=== PATIENT | female | born 1930 | race Caucasian/White ===

== ENCOUNTER 2017-07-24 08:49 | Day surgery (SDC) | payer OTHER ==
--- NOTE | 2017-07-21 13:57 | RAD REPORT ---
EXAM DESCRIPTION: Cady Ovalle And Shari (2 Views)07/21/2017 1:41 pm CLINICAL HISTORY: Preop COMPARISON: April 2017 FINDINGS: The lungs appear clear of acute infiltrate. The heart is moderately enlarged. Postsurgica l changes involve the chest IMPRESSION: No acute abnormalities displayed
--- NOTE | 2017-07-21 14:05 | EKG ---
Test Date: 2017-07-21 Test Time: 13:12:27 Machine Maintenance Mechanic: GAEL MEASUREMENT RESULTS: Intervals: Rate: 68 MS: QRSD: 90 QT: 332 QTc: 353 [place]: P: MS: QRS: 49 T: 222 INTERPRETIVE STATEMENTS: Atrial fibrillation Anteroseptal infarct, age undetermined Abnormal ECG Compared to ECG 04/27/2017 07:30:03 No significant changes Electronically Signed On 07-21-17 14:04:15 CDT by Kenney Fuchs
[2017-07-24] MEDS ORDERED: Ringers Lactate 1,000 ML IV ONE (09:22)
[2017-07-24] MEDS ORDERED: CEFAZOLIN/SWI 1gm 1 GM/10 ML SYR ONE (09:23)
[2017-07-24] MEDS ORDERED: FENTANYL CITR 100 MCG/2 ML ONE (09:52)
[2017-07-24] MEDS ORDERED: PROPOFOL 200 MG/20 ML VIAL IV ONE (09:52)
[2017-07-24] MEDS ORDERED: LIDOCAINE 2% MPF 5 ML VIAL ONE (09:52)
[2017-07-24 09:57] LABS: Protime INR 1.06
[2017-07-24] MEDS ORDERED: LIDOCAINE 1% 20 ML MDV ONE (10:11)
--- NOTE | 2017-07-24 11:45 | OP ---
Date of Procedure: 07/24/2017 Surgeon: Will Miranda MD Preoperative Diagnoses: Headache, vision change, rule out temporal arteritis on left side. Postoperative Diagnoses: Headache, vision change, rule out temporal arteritis on left side. Procedure: Left temporal artery biopsy and utilization of the Doppler device to locate the temporal artery. Estimated Blood Loss: Minimal. Specimen: Left temporal artery. Findings: As above. Anesthesia: MAC. Complications: None. Disposition: The patient tolerated the procedure in stable condition and taken to Recovery in good g eneral condition. Operative Note: The patient was brought to the OR and placed in supine position. MAC anesthesia was begun. The patient was prepped and draped in the sterile fashion. Then, a Doppler device was used to localize the branch of the temporal artery. Anterior and superior to the left ear marked and then Marcaine 0.5% was infiltrated locally. A 15-blade was used to make a 4-cm incision. Subcutaneous t issue was divided and deep to that, a convoluted temporal artery branch identified. Proximal and dis nabor control obtained with sharp and blunt dissection, and then approximately a 4-cm segment removed a nd sent to Pathology and then the ends tied with 4-0 silk. Wound irrigated. Bleeding controlled wit h cautery. A 4-0 chromic was used to approximate the subcutaneous tissue and close the skin. Steril e dressing was applied. The patient was awakened and taken to Recovery in good general condition. Discharge Note: The patient will go to Day Surgery and home when stable. Disposition: Home. Condition: Stable. Discharge Instructions: Resume home medications and diet. Activity as tolerated. No heavy lifting. Remove outer dressing in 2 days. Shower. Keep wound clean and dry. Keep Steri-Strips on her all times. Follow up in my office in 2 weeks. Call for appointment. Follow up with Dr. Mckeon. Evan noалександр No. 3 one tablet p.o. q.4 p.r.n. pain. /MODL Voice ID: [id number] Report ID: [id number]
[2017-07-24 12:04] VITALS: O2SAT 98
[2017-07-24 12:39] VITALS: BP 119/54; TEMP 97.1
== END 2017-07-24 12:38 | disposition home or self-care (01) ==
LOC: OR 08:49
PROVIDERS: ATTEND Surgery
PROC: 03BT0ZX Excision of Left Temporal Artery, Open Approach, Diagnostic (ICD-10-PCS; principal; 2017-07-24 10:00)
DX: R51 Headache (principal); H53.9 Unspecified visual disturbance; I25.10 Atherosclerotic heart disease of native coronary artery without angina pectoris; Z88.6 Allergy status to analgesic agent; Z88.8 Allergy status to other drugs, medicaments and biological substances; Z95.1 Presence of aortocoronary bypass graft; Z86.73 Personal history of transient ischemic attack (TIA), and cerebral infarction without residual deficits
CPT/HCPCS: 36415 ×2; 37609; 71046; 80048; 85610; 88305; 93005; J0690; J3010

== ENCOUNTER 2017-09-02 05:50 | Emergency (ER) | payer OTHER ==
--- OUTSIDE RECORDS SUMMARY | 2017-09-02 06:00 | XMS REPORT | Continuity of Care Document ---
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/18 Problem 02/07/2013 [facility] artery 93 Medical bypass grafts x Center 4 Acute GI Active Problem 07/13/2011 [facility] bleeding AF - Atrial Active Problem 07/13/2011 [facility] fibrillation CAD - Coronary Active Problem 07/13/2011 [facility] artery disease Chest pain Active Problem 07/13/2011 [facility] CHF - Active Problem 07/13/2011 [facility] Congestive heart failure HTN - Active Problem 07/13/2011 [facility] Hypertension Acute GI Active Problem 02/07/2013 [facility] Center AF - Atrial Active Problem 02/07/2013 [facility] Angina Resolved Problem 02/07/2013 [facility] Bronchitis Resolved Problem 02/07/2013 [facility] CAD Resolved Problem 02/07/2013 [facility] CAD - Coronary Active Problem 02/07/2013 [facility] Chest pain Active Problem 02/07/2013 [facility] CHF - Active Problem 02/07/2013 [facility] heart failure Center CVA Resolved Problem 02/07/2013 [facility] Diabetes Resolved Problem 02/07/2013 [facility] HTN - Active Problem 02/07/2013 [facility] Hypertension Resolved Problem 02/07/2013 [facility] CVA Active [facility] GASTROINTEST Active [facility] HEMORR NOS Medications Medication Details Route Status Patient Ordering Order Source Instructions Provider Date warfarin 2.5 mg, 1 tab, Inactive Yoshii[facility] Route: PO, Drug ntreras 2012 Medical form: TAB, ONCE, Center Dosing Weight 65.005, kg, Start date: 02/05/13 14:00:00, Stop date: 02/05/13 14:00:00Nurse to ensure documentation of patient education per anticoagulation policy. Avoid large intake of vitamin-K containing foods diet. (Same As: Coumadin) lisinopril 2.5 mg, 1 tab, Inactive [place] 02/05[facility] Route: PO, Drug 2012 Medical form: TAB, Daily, Center Dosing Weight 65.005, kg, Start date: 02/05/13 12:00:00, Duration: 30 day, Stop date: 03/07/13 9:00:00(Same as: Prinivil) lisinopril 2.5 2.5 mg=1 tab, PO, Active [facility] 02/05[facility] mg oral tablet Daily, # 30 tab, 2013 Medical 0 Refill(s), Center other warfarin 2 mg 2 mg=1 tab, PO, Active [place] 02/05[facility] oral tablet Daily, # 30 tab, 2013 Medical 0 Refill(s), Center other docusate sodium 100 mg=10 mL, PO, Active [place] 02/05[facility] 150 mg/15 mL Q12H, # 30 mL, 0 2012 Medical oral liquid Refill(s), other Center DuoNeb 3 mL, INHALATION, Active [facility] 02/05[facility] inhalation RTID, # 90 mL, 0 2012 Medical solution Refill(s), other Center atorvastatin 80 80 mg=1 tab, PO, Active [place] 02/05[facility] mg oral tablet QPM, # 30 tab, 0 2012 Medical Refill(s), other Center acetaminophen 650 mg=2 tab, PO, Active [place] 02/05[facility] 325 mg oral Q4H, Pain, # 30 2013 Medical tablet tab, 0 Refill(s), Center other AMIODarone 200 200 mg=1 tab, PO, Active [place] 02/05[facility] mg oral tablet Daily, # 30 tab, 2013 Medical 0 Refill(s), Center other warfarin 2.5 mg, 1 tab, Inactive [facility] 02/04[facility] Route: PO, Drug ntreras 2012 Medical form: TAB, Q5PM, Center Dosing Weight 65.005, kg, Start date: 02/04/13 17:00:00, Duration: 1 doses or times, Stop date: 02/04/13 17:00:00Nurse to ensure documentation of patient education per anticoagulation policy. Avoid large intake of vitamin-K containing foods diet. (Same As: Coumadin) Lasix 20 mg, 1 tab, Inactive [place] 02/03[facility] Route: PO, Drug 2012 Medical form: TAB, ONCE, Center Dosing Weight 65.005, kg, Priority: NOW, Start date: 02/02/13 18:50:00, Stop date: 02/02/13 18:50:00(Same as: Lasix) May cause GI upset. Give with food or milk. [place] 5/325 1 tab, Route: PO, No Longer [place] 02/02[facility] oral tablet Drug Form: TAB, Active 2012 Medical Dosing Weight Center 65.005, kg, Q6H, PRN Pain, Start date: 02/02/13 16:17:00, Duration: 30 day, Stop date: 03/04/13 16:16:00(Same as: [place] 325/5) Do not exceed 4gm/day of acetaminophen. Tylenol 650 mg, 2 tab, No Longer [place] 02/02[facility] Route: PO, Drug Active 2012 Medical form: TAB, Q4H, Center Dosing Weight 65.005, kg, PRN Pain, Start date: 02/02/13 16:17:00, Duration: 30 day, Stop date: 03/04/13 16:16:00Do not exceed 4 gm/day. (Same as: Tylenol) DuoNeb 3 mL, Route: No Longer [place] 02/02[facility] inhalation INHALATION, Drug Active 2012 Medical solution Form: SOLN, Center Dosing Weight 65.005, kg, RTID, Start date: 02/02/13 14:00:00, Duration: 30 day, Stop date: 03/04/13 8:00:00(Same as: Duoneb) DuoNeb 3 ml, Route: No Longer [place] [address] inhalation INHALATION, Drug Active 2012 Medical solution Form: SOLN, Center Dosing Weight 65.005, kg, PRN, PRN Respiratory Protocol, Start date: 02/02/13 9:04:00, Duration: 30 day, Stop date: 03/04/13 9:03:00(Same as: Duoneb) Heparin 40 Pharmacy To Inactive [place] [address] unit/kg Bolus Manage, Route: 2012 Medical (Heparin Dosing IVP, PRN, Drug Center Weight) form: INJ, PRN, Heparin Protocol, Start date: 02/02/13 7:46:00 Stop date: 03/04/13 7:45:00, 30 day heparin 500 mL, Rate: Inactive [facility] additive 25,000 14.3 ml/hr, ntreras 2012 Medical unit [11 Infuse over: 35 Center unit/kg/hr] + hr, Route: IV, Premix Diluent Dosing Weight 65 Dextrose 5% 500 kg, Total Volume: mL 500 mL, Start date: 02/02/13 7:46:00, Duration: 30 day, Stop date: 03/04/13 7:45:00 Heparin 80 Pharmacy To Inactive Luz Marina Delia unit/kg Bolus Manage, Route: 2012 Medical (Heparin Dosing IVP, PRN, Drug Center Weight) form: INJ, PRN, Heparin Protocol, Start date: 02/02/13 7:46:00 Stop date: 03/04/13 7:45:00, 30 day warfarin 5 mg, 1 tab, Inactive Flixpress[facility] Route: PO, Drug ntreras 2012 Medical form: TAB, Q5PM, Center Dosing Weight 65.005, kg, Start date: 02/01/13 17:00:00, Duration: 1 doses or times, Stop date: 02/01/13 17:00:00Nurse to ensure documentation of patient education per anticoagulation policy. Avoid large intake of vitamin-K containing foods diet. (Same As: Coumadin) warfarin 5 mg, 1 tab, Inactive [facility] Route: PO, Drug ntrcedar glens 2012 Medical form: TAB, Q5PM, Center Dosing Weight 65.005, kg, Start date: 01/31/13 17:00:00, Duration: 1 doses or times, Stop date: 01/31/13 17:00:00Nurse to ensure documentation of patient education per anticoagulation policy. Avoid large intake of vitamin-K containing foods diet. (Same As: Coumadin) warfarin 5 mg, 1 tab, Inactive [facility] 01/30[facility] Route: PO, Drug ntreras 2012 Medical form: TAB, Q5PM, Center Dosing Weight 65.005, kg, Start date: 01/30/13 17:00:00, Duration: 1 doses or times, Stop date: 01/30/13 17:00:00Nurse to ensure documentation of patient education per anticoagulation policy. Avoid large intake of vitamin-K containing foods diet. (Same As: Coumadin) Aspirin Low 81 mg=1 tab, PO, No Longer [facility] Dose 81 mg oral Daily, 0 Active 2012 Medical tablet Refill(s) Center lisinopril 5 mg, Route: PO, Inactive [facility] Drug form: TAB, 2012 Medical Daily, Dosing Center Weight 65.005, kg, Start date: 01/29/13 9:00:00, Duration: 30 day, Stop date: 02/27/13 9:00:00 gabapentin 300 300 mg, 1 cap, No Longer Pérez [facility] mg oral capsule Route: PO, Drug Active 2012 Medical form: CAP, TID, Center Dosing Weight 65.005, kg, Start date: 01/29/13 9:00:00, Duration: 30 day, Stop date: 02/27/13 17:00:00(Same as: Neurontin) heparin 500 mL, Rate: No Longer Luz Marina [place] additive 25,000 16.69 ml/hr, Active 2012 Medical unit [14 Infuse over: 30 Center unit/kg/hr] + hr, Route: IV, Premix Diluent Dosing Weight Dextrose 5% 500 59.62 kg, Total mL Volume: 500 mL, Start date: 01/28/13 15:25:00, Duration: 30 day, Stop date: 02/27/13 15:24:00 lisinopril 5 mg 5 mg=1 tab, PO, No Longer [facility] oral tablet Daily, # 30 tab, Active 2012 Medical 0 Refill(s) Center gabapentin 300 300 mg=1 cap, PO, Active [facility] mg oral capsule TID, # 90 cap, 0 2012 Medical Refill(s) Center simvastatin 20 20 mg=1 tab, PO, No Longer [facility] mg oral tablet Bedtime, # 30 Active 2012 Medical tab, 0 Refill(s) Center AMIODarone 200 0 Refill(s) No Longer [facility] mg oral tablet Active 2012 Medical Center AMIODarone 200 mg, 1 tab, No Longer Burgos-Mariusz [facility] Route: PO, Drug Active bella 2012 Medical form: TAB, Daily, Center Dosing Weight 65.005, kg, Start date: 01/28/13 9:00:00, Duration: 30 day, Stop date: 02/26/13 9:00:00(Same as: Cordarone) magnesium 2 gm, 50 mL, Inactive [facility] 01/28[facility] sulfate Route: IVPB, Drug 2012 Medical form: INJ, ONCE, Center Start date: 01/28/13 7:00:00, Stop date: 01/28/13 7:00:00 potassium 40 mEq, 30 mL, Inactive [facility] chloride Route: NJ, Drug 2012 Medical form: LIQ, ONCE, Center Start date: 01/28/13 7:00:00, Stop date: 01/28/13 7:00:00(Same as: Potassium Chloride) NS (Bolus) IV 500 mL, Rate: 500 Inactive [place] 01/28[facility] 500 mL ml/hr, Infuse 2012 Medical over: 1 hr, Center Route: IV, Dosing Weight 65.005 kg, Total Volume: 500, Priority: STAT, Start date: 01/28/13 5:08:00, Duration: 1 doses or times, Stop date: 01/28/13 6:07:00, Bolus DoseBolus Dose insulin regular 7 unit, 0.07 mL, No Longer Willie 01/28[facility] 100 units/mL Route: SUB-Q, Active 2012 Medical human Drug form: SOLN, Center recombinant PRN, Dosing Weight 65.005, kg, PRN Abnormal Lab Result, Start date: 01/28/13 5:06:00, Duration: 30 day, Stop date: 02/27/13 5:05:00(Same as: Humulin R) Roll in palms of hands gently; Do not shake vigorously. "single patient use only" (Restricted to patients requiring a dose > 60 units) Stable for 28 days at room temperature Expires in days from Dat e Dextrose 50% 25 gm, 50 mL, No Longer [facility] 01/28[facility] Syringe Route: IVP, Drug Active 2012 Medical Form: INJ, Dosing Center Weight 65.005, kg, PRN, PRN Abnormal Lab Result, Start date: 01/28/13 5:06:00, Duration: 30 day, Stop date: 02/27/13 5:05:00 albumin human 25 gm, 500 mL, Inactive Willie [facility] 5% intravenous 500 ml/hr, Route: 2012 Medical solution IV, Drug Form: Center INJ, Dosing Weight 65.005, kg, ONCE, Start date: 01/28/13 3:44:00, Stop date: 01/28/13 3:44:00LOT#: Mfg: ___ (Same as: Albuminar) "blood product derivative" NS (Bolus) IV 500 mL, Rate: 500 Inactive Willie [facility] 500 mL ml/hr, Infuse 2012 Medical over: 1 hr, Center Route: IV, Dosing Weight 65.005 kg, Total Volume: 500, Priority: STAT, Start date: 01/28/13 0:45:00, Duration: 1 doses or times, Stop date: 01/28/13 1:44:00, Bolus DoseBolus Dose ibuprofen 600 mg, 1 tab, No Longer Burgos-Mariusz [facility] Route: PO, Drug Active bella 2012 Medical form: TAB, Q6H, Center Dosing Weight 65.005, kg, PRN Pain, Start date: 01/27/13 11:03:00, Duration: 30 day, Stop date: 02/26/13 11:02:00(Same as: Motrin) "Do Not Crush" Take with food. docusate 100 mg, 10 mL, No Longer Grotta [facility] Route: PO, Drug Active 2012 Medical form: LIQ, Q12H, Center Start date: 01/26/13 21:30:00, Duration: 30 day, Stop date: 02/25/13 21:00:00(Same as: Colace) Saline Flush 5 ml, Route: No Longer Baker [facility] 0.9% MISC, Drug Form: Active 2012 Medical INJ, Dosing Center Weight 66, kg, Q12H, Start date: 01/26/13 21:00:00, Duration: 30 day, Stop date: 02/25/13 9:00:00(Same as: BD Posiflush) docusate 100 mg, 1 cap, Inactive Burgos[facility]Mariusz [facility] Route: PO, Drug bella 2012 Medical form: CAP, Q12H, Center Dosing Weight 65.005, kg, Start date: 01/26/13 21:00:00, Duration: 30 day, Stop date: 02/25/13 9:00:00(Same as: Colace) (Do Not Crush) Omnipaque 85 mL, Route: Inactive Samuel [facility] 350mg/ml IVP, Drug Form: 2012 Medical SOLN, Dosing Center Weight 65.005, kg, ONCALL, STAT, Start date: 01/26/13 19:56:00, Duration: 1 doses or times, Dose=2.2ml/kg, Max [id number]=[id number] -- "To be infused by Radiology Staff ONLY"Dose=2.2ml/k g, Max syte=162eu -- "To be infused by Radiology Staff ONLY" Versed 2 mg, 2 mL, Inactive Willie [facility] Route: IVP, Drug 2012 Medical form: INJ, ONCE, Center Dosing Weight 65.005, kg, Start date: 01/26/13 19:17:00, Stop date: 01/26/13 19:17:00, aggitation in MRi(Same as: Versed) Omnipaque 85 mL, Route: Inactive Pérez [place] 350mg/ml IVP, Drug Form: 2012 Medical SOLN, Dosing Center Weight 65.005, kg, ONCALL, STAT, Start date: 01/26/13 17:39:00, Duration: 1 doses or times, Dose=2.2ml/kg, Max [id number]=[id number] -- "To be infused by Radiology Staff ONLY"Dose=2.2ml/k g, Max jfvy=129vt -- "To be infused by Radiology Staff ONLY" Lipitor 80 mg, 1 tab, No Longer Samuel Delia Route: PO, Drug Active 2012 Medical form: TAB, QPM, Center Dosing Weight 66, kg, Start date: 01/26/13 17:00:00, Duration: 30 day, Stop date: 02/24/13 17:00:00Same as Lipitor Artificial 1 drp, Route: No Longer Burgos[facility]Mariusz [facility] Tears Each Affected Active bella 2012 Medical Eye, TID, Drug Center form: SOLN, Start date: 01/26/13 17:00:00, Duration: 30 day, Stop date: 02/25/13 13:00:00 normal saline 1,000 mL, Rate: No Longer Luz [place] 0.9% IV 1000 mL 75 ml/hr, Infuse Active 2012 Medical over: 13.3 hr, Center Route: IV, Dosing Weight 65.005 kg, Total Volume: 1,000, Start date: 01/26/13 16:26:00, Duration: 30 day, Stop date: 02/25/13 16:25:00 labetalol 10 mg, 2 mL, No Longer [facility]os[facility]Mariusz [facility] Route: IVP, Drug Active 2012 Medical form: INJ, Center Q15Min, Dosing Weight 65.005, kg, PRN Hypertension, Start date: 01/26/13 16:21:00, Duration: 30 day, Stop date: 02/25/13 16:20:00 heparin 5,000 unit, 1 mL, No Longer Santoro [facility] Route: SUB-Q, Active 2012 Medical Drug form: INJ, Center Q8H, Dosing Weight 66, kg, Start date: 01/26/13 16:00:00, Duration: 30 day, Stop date: 02/25/13 8:00:00porcine heparin Saline Flush 5 ml, Route: IVP, No Longer [facility]os[facility]Mariusz [facility] 0.9% Drug Form: INJ, Active bella2012 Medical Dosing Weight Center 65.005, kg, PRN, PRN Line Flush, Start date: 01/26/13 15:45:00, Duration: 30 day, Stop date: 02/25/13 15:44:00(Same as: BD Posiflush) bisacodyl 10 mg, 1 supp, No Longer [facility]os[facility]Mariusz [facility] Route: VA, Drug Active 2012 Medical form: SUPP, Center Daily, Dosing Weight 65.005, kg, PRN Other -See Comment, Start date: 01/26/13 15:45:00, Duration: 30 day, Stop date: 02/25/13 15:44:00(Same As: Dulcolax, [place]isco-Lax) aspirin 81 mg 81 mg, 1 tab, No Longer Bowry Delia tablet, enteric Route: PO, Drug Active 2012 Medical coated form: ECTAB, Center Daily, Dosing Weight 66, kg, Start date: 01/26/13 15:00:00, Duration: 30 day, Stop date: 02/25/13 9:00:00Do not crush or chew. (Same As: Ecotrin) Saline Flush 5 ml, Route: No Longer Baker [facility] 0.9% MISC, Drug Form: Active 2012 Medical INJ, Dosing Center Weight 66, kg, PRN, PRN Line Flush, Start date: 01/26/13 13:40:00, Duration: 30 day, Stop date: 02/25/13 13:39:00(Same as: BD Posiflush) GoLYTELY 4,000 mL, Route: PO No Longer Wollner PO, Drug Form: Active 2011 [facility] PDR/REC, ONCE, Start date: 07/10/11 11:00:00, Stop date: 07/10/11 11:00:00 Aldactone 25 mg, 1 tab, PO No Longer Wollner Route: PO, Drug Active 2011 [facility] form: TAB, Daily, Start date: 07/10/11 9:00:00, Duration: 30 day, Stop date: 08/08/11 9:00:00 hydrALAZINE 25 50 mg, 2 tab, PO No Longer [place] 07/09/ MH mg oral tablet Route: PO, Drug Active 2011 [facility] form: TAB, TID, Start date: 07/10/11 9:00:00, Duration: 30 day, Stop date: 08/08/11 17:00:00 Lopressor 12.5 mg, 0.5 tab, PO No Longer [facility] Route: PO, Drug Active 2011 [facility] form: TAB, BID, Start date: 07/10/11 9:00:00, Duration: 30 day, Stop date: 08/08/11 17:00:00 Prinivil 10 mg, 1 tab, PO No Longer [place] Route: PO, Drug Active 2011 [facility] form: TAB, Daily, Start date: 07/10/11 9:00:00, Duration: 30 day, Stop date: 08/08/11 9:00:00 Monoket 20 mg, 1 tab, PO No Longer W[place]ner Route: PO, Drug Active 2011 [facility] form: TAB, TID, Start date: 07/10/11 9:00:00, Duration: 30 day, Stop date: 08/08/11 17:00:00 Carafate 1 gm, 1 tab, PO No Longer [place] Route: PO, Drug Active 2011 [facility] form: TAB, QID-Before Meals, Start date: 07/09/11 21:00:00, Duration: 30 day, Stop date: 08/08/11 16:30:00 Zocor 20 mg, 1 tab, PO No Longer [place] Route: PO, Drug Active 2011 [facility] form: TAB, Bedtime, Start date: 07/09/11 21:00:00, Duration: 30 day, Stop date: 08/07/11 21:00:00 insulin regular 5 unit, 0.05 mL, SUB-Q No Longer Wollner human Route: SUB-Q, Active 2011 [facility] recombinant 100 Drug form: SOLN, units/mL ONCALL, Start injectable date: 07/09/11 solution 18:00:00, Duration: 30 day, Stop date: 08/08/11 17:59:00 Protonix 40 mg, Route: IVP No Longer [place] IVP, Drug form: Active 2011 [facility] INJ, Q12H, Start date: 07/09/11 17:47:00, Duration: 30 day, Stop date: 08/08/11 9:00:00 Tylenol 650 mg, 2 tab, PO No Longer [place] Route: PO, Drug Active 2011 [facility] form: TAB, Q4H, PRN Pain/Fever, Start date: 07/09/11 17:44:00, Duration: 30 day, Stop date: 08/08/11 17:43:00 Restoril 15 mg, 1 cap, PO No Longer [facility] Route: PO, Drug Active 2011 [facility] form: CAP, Bedtime, PRN Sleep, Start date: 07/09/11 17:44:00, Duration: 30 day, Stop date: 08/08/11 17:43:00 BD Normal 10 mL, Route: IVP No Longer Wollner Saline Flush IVP, Drug Form: [facility] 2011 [facility] INJ, PRN, PRN Line Flush, Start date: 07/09/11 17:43:00, Duration: 30 day, Stop date: 08/08/11 17:42:00 Sodium Chloride 250 mL, Route: IVPB No Longer [place]ner 0.9% IV IVPB, Start date: Active 2011 [facility] 07/09/11 17:43:00, Duration: 30 day, Stop date: 08/08/11 17:42:00, PRN Line Flush K-Dur 20 40 mEq, 2 tab, PO No Longer Sergei Route: PO, Drug Active 2011 [facility] form: ERTAB, ABXQ6H, Start date: 07/07/11 14:00:00, Duration: 2 doses or times, Stop date: 07/07/11 20:00:00 phytonadione 10 mg, 1 mL, IV No Longer Kg Route: IV, Drug Active 2011 [facility] form: INJ, ONCE, Start date: 07/07/11 14:00:00, Stop date: 07/07/11 14:00:00 Benadryl 25 mg, 1 cap, PO No Longer Sergei Route: PO, Drug Active 2011 [facility] form: CAP, ONCALL, Start date: 07/07/11 13:00:00, Duration: 30 day, Stop date: 08/06/11 12:59:00 Tylenol 650 mg, 2 tab, PO No Longer Sergei Route: PO, Drug Active 2011 [facility] form: TAB, ONCALL, Start date: 07/07/11 13:00:00, Duration: 30 day, Stop date: 08/06/11 12:59:00 Lasix 20 mg, 2 mL, IV No Longer Sergei Route: IV, Drug Active 2011 [facility] form: INJ, ONCALL, Start date: 07/07/11 13:00:00, Duration: 30 day, Stop date: 08/06/11 12:59:00 calcium 1,000 mg, 10 mL, IVPB No Longer Paz gluconate Route: IVPB, Active 2011 [facility] ONCE, Start date: 07/07/11 9:30:00, Stop date: 07/07/11 9:30:00 Prinivil 10 mg, 1 tab, PO No Longer Kg Route: PO, Drug Active 2011 [facility] form: TAB, Daily, Start date: 07/07/11 9:00:00, Duration: 30 day, Stop date: 08/05/11 9:00:00 Aldactone 25 mg, 1 tab, PO No Longer Kg Route: PO, Drug Active 2011 [facility] form: TAB, Daily, Start date: 07/07/11 9:00:00, Duration: 30 day, Stop date: 08/05/11 9:00:00 Sodium Chloride 1,000 mL, Rate: IV No Longer Sergei 0.9% IV 1,000 60 ml/hr, Infuse Active 2011 [facility] mL over: 16.7 hr, Route: IV, Dosing Weight 67.7 kg, Total Volume: 1,000, Start date: 07/07/11 8:39:00, Duration: 30 day, Stop date: 08/06/11 8:38:00 Zocor 20 mg, 1 tab, PO No Longer Kg Route: PO, Drug Active 2011 [facility] form: TAB, Bedtime, Start date: 07/06/11 21:00:00, Duration: 30 day, Stop date: 08/04/11 21:00:00 hydrALAZINE 50 100 mg, 2 tab, PO No Longer Kg mg oral tablet Route: PO, Drug Active 2011 [facility] form: TAB, Q8H, Start date: 07/06/11 18:00:00, Duration: 30 day, Stop date: 08/05/11 16:00:00 Neurontin 300 mg, 1 cap, PO No Longer Kg Route: PO, Drug Active 2011 [facility] form: CAP, TID, Start date: 07/06/11 18:00:00, Duration: 30 day, Stop date: 08/05/11 17:00:00 isosorbide 20 mg, 1 tab, PO No Longer Kg dinitrate Route: PO, Drug Active 2011 [facility] form: TAB, Q8H, Start date: 07/06/11 18:00:00, Duration: 30 day, Stop date: 08/05/11 16:00:00 metoprolol 12.5 mg, 0.5 tab, PO No Longer Mushtaq Route: PO, Drug Active 2011 [facility] form: ERTAB, Daily, Start date: 07/06/11 9:00:00, Stop date: 08/04/11 9:00:00 Protonix 40 mg, Route: IVP No Longer Kg IVP, Drug form: Active 2011 [facility] INJ, Q12H, Start date: 07/05/11 21:00:00, Duration: 30 day, Stop date: 08/04/11 9:00:00 glucagon 1 mg, Route: IV, IV No Longer Kg Drug form: Active 2011 [facility] PDR/INJ, PRN, PRN Blood Glucose Results, Start date: 07/05/11 18:38:00, Duration: 30 day, Stop date: 08/04/11 18:37:00 Dextrose 50% in 50 mL, Route: IVP No Longer Kg Water IV IVP, Start date: Active 2011 [facility] 07/05/11 18:38:00, Duration: 30 day, Stop date: 08/04/11 18:37:00, PRN Blood Glucose Results NovoLog FlexPen 4 unit, 0.04 mL, SUB-Q No Longer Kg Route: SUB-Q, Active 2011 [facility] Drug form: SOLN, Sliding Scale, PRN Blood Glucose Results, Start date: 07/05/11 18:38:00, Duration: 30 day, Stop date: 08/04/11 18:37:00 Carafate 1 gm, 10 mL, PO No Longer Kg Route: PO, Drug Active 2011 [facility] form: SUSP, TID-Before Meals, Start date: 07/05/11 16:30:00, Duration: 30 day, Stop date: 08/04/11 11:30:00 Carafate 1 gm, 10 mL, PO No Longer Kg Route: PO, Drug Active 2011 [facility] form: SUSP, ONCE, Start date: 07/05/11 14:13:00, Stop date: 07/05/11 14:13:00 Dextrose 50% in 50 mL, Route: IVP No Longer Kg Water IV IVP, Start date: Active 2011 [facility] 07/04/11 23:20:00, Duration: 30 day, Stop date: 08/03/11 23:19:00, PRN Blood Glucose Results NovoLog FlexPen 8 unit, 0.08 mL, SUB-Q No Longer Kg Route: SUB-Q, Active 2011 [facility] Drug form: SOLN, Sliding Scale, PRN Blood Glucose Results, Start date: 07/04/11 23:20:00, Duration: 30 day, Stop date: 08/03/11 23:19:00 glucagon 1 mg, Route: IV, IV No Longer Kg Drug form: Active 2011 [facility] PDR/INJ, PRN, PRN Blood Glucose Results, Start date: 07/04/11 23:20:00, Duration: 30 day, Stop date: 08/03/11 23:19:00 Lasix 40 mg, 4 mL, IV No Longer Kg Route: IV, Drug Active 2011 [facility] form: INJ, ONCALL, Start date: 07/04/11 19:00:00, Duration: 2 doses or times morphine 2 mg, 0.4 mL, IV No Longer Kg Sulfate Route: IV, Drug Active 2011 [facility] form: INJ, Q3H, PRN Pain, Start date: 07/04/11 18:26:00, Duration: 30 day, Stop date: 08/03/11 18:25:00 nitroglycerin 0.5 inch, Route: TOP No Longer Sergei 2% topical TOP, Drug form: Active 2011 [facility] ointment OINT, ONCE, Start date: 07/04/11 16:35:00, Stop date: 07/04/11 16:35:00 nitroglycerin 0.4 mg, 1 tab, SL No Longer Sergei 0.4 mg Route: SL, Drug Active 2011 [facility] sublingual form: TAB, ONCE, tablet Start date: 07/04/11 16:35:00, Stop date: 07/04/11 16:35:00 BD Normal 10 mL, Route: IVP No Longer Jeremi Saline Flush IVP, Drug Form: Active 2011 [facility] INJ, Q8H, Start date: 07/04/11 16:00:00, Duration: 30 day, Stop date: 08/03/11 8:00:00 BD Normal 10 mL, Route: IVP No Longer Jeremi Saline Flush IVP, Drug Form: Active 2011 [facility] INJ, PRN, PRN Line Flush, Start date: 07/04/11 11:39:00, Duration: 30 day, Stop date: 08/03/11 11:38:00 Sodium Chloride 250 mL, Route: IVPB No Longer Kg 0.9% IV IVPB, Start date: Active 2011 [facility] 07/04/11 11:38:00, Duration: 30 day, Stop date: 08/03/11 11:37:00, PRN Line Flush Kayexalate 15 gm, 60 mL, PO No Longer Kg Route: PO, Drug Active 2011 [facility] form: SUSP, ONCE, Start date: 07/04/11 11:01:00, Stop date: 07/04/11 11:01:00 phytonadione 10 mg, 1 mL, SUB-Q No Longer Sergei Route: SUB-Q, Active 2011 [facility] Drug form: INJ, BID, Start date: 07/04/11 11:00:00, Duration: 3 doses or times, Stop date: 07/05/11 11:00:00 Lasix 20 mg, 2 mL, IV No Longer Kg Route: IV, Drug Active 2011 [facility] form: INJ, After Transfusion, PRN See Nurse's Notes, Start date: 07/04/11 10:51:00, Stop date: 07/04/11 23:00:00 octreotide 247.5 mL, Rate: IV No Longer Kg 1,250 microgram 10 ml/hr, Infuse Active 2011 [facility] + Sodium over: 25 hr, Chloride 0.9% Route: IV, Dosing IV 247.5 mL Weight 67.7 kg, Total Volume: 250, Start date: 07/04/11 5:44:00, Duration: 30 day, Stop date: 08/03/11 5:43:00 pantoprazole 80 100 mL, Rate: 10 IV No Longer Kg mg + Sodium ml/hr, Infuse Active 2011 [facility] Chloride 0.9% over: 10 hr, IV 100 mL Route: IV, Dosing Weight 67.7 kg, Total Volume: 100, Start date: 07/04/11 5:44:00, Duration: 30 day, Stop date: 08/03/11 5:43:00 Benadryl 25 mg, 1 cap, PO No Longer Kg Route: PO, Drug Active 2011 [facility] form: CAP, Q6H, PRN See Nurse's Notes, Start date: 07/04/11 5:43:00, Duration: 30 day, Stop date: 08/03/11 5:42:00 morphine 2 mg, 0.4 mL, IV No Longer Kg Sulfate Route: IV, Drug Active 2011 [facility] form: INJ, Q4H, PRN Pain, Start date: 07/04/11 5:43:00, Duration: 30 day, Stop date: 08/03/11 5:42:00 Restoril 15 mg, 1 cap, PO No Longer Kg Route: PO, Drug Active 2011 [facility] form: CAP, Bedtime, PRN Sleep, Start date: 07/04/11 5:43:00, Duration: 30 day, Stop date: 08/03/11 5:42:00 Zofran 4 mg, 2 mL, IVP No Longer Kg Route: IVP, Drug Active 2011 [facility] form: INJ, Q8H, PRN Nausea, Start date: 07/04/11 5:42:00, Duration: 30 day, Stop date: 08/03/11 5:41:00 acetaminophen-h 1 tab, Route: PO, PO No Longer Kg ydrocodone 325 Drug Form: TAB, Active 2011 [facility] mg-5 mg oral Q6H, PRN Pain, tablet Start date: 07/04/11 5:42:00, Duration: 30 day, Stop date: 08/03/11 5:41:00 Tylenol 650 mg, 1 supp, VA No Longer Kg Route: VA, Drug Active 2011 [facility] form: SUPP, Q4H, PRN Pain/Fever, Start date: 07/04/11 5:42:00, Duration: 30 day, Stop date: 08/03/11 5:41:00 Sodium Chloride 500 mL, Rate: IV No Longer [facility] 0.9% IV 500 mL bolus, Route: IV, Active 2011 [facility] Dosing Weight 67.7 kg, Total Volume: 500, Start date: 07/04/11 5:41:00, Duration: 1 hr, Stop date: 07/04/11 6:40:00 Sodium Chloride 1,000 mL, Rate: IV No Longer [facility] 0.9% IV 1,000 125 ml/hr, Infuse Active 2011 [facility] mL over: 8 hr, Route: IV, Dosing Weight 67.7 kg, Total Volume: 1,000, Start date: 07/04/11 5:24:00, Duration: 30 day, Stop date: 08/03/11 5:23:00 Allergies, Adverse Reactions, Alerts Substance Category Reaction Severity Reaction Status Date Comments Source type Reported PHENobarbital drug Allergy Active allergy [facility] Immunizations Immunization Date Given Site Status Last Updated Comments Source Results Order Name Results Value Reference Date Interpretation Comments Source Range BEDSIDE Glucose POC 161 mg/dL 70 - 99 02/05 CT 2Interpretive [facility] GLUCOSE Data: [facility] Upper Reportable Limit: 200 mg/dL. BEDSIDE Glucose POC 114 mg/dL 70 - 99 02/05 CT 3Interpretive [facility] GLUCOSE Data: [facility] Upper Reportable Limit: 200 mg/dL. CHEMISTRY AGAP 15.5 meq/L 10.0 - 02/05 Normal [facility] 20.0 [facility] CHEMISTRY Calcium Lvl 8.0 mg/dL 8.5 - 10.5 02/05 LOW [facility]2012 [facility] CHEMISTRY CO2 24 meq/L 24 - 32 02/05 Normal [facility]2012 [facility] CHEMISTRY Chloride Lvl 103 meq/L 95 - 109 02/05 Normal [facility]2012 [facility] CHEMISTRY eGFR 60 02/05 5Result Comment: The eGFR is calculated using the CKD-EPI formula. In most young, healthy individuals the eGFR will be >90 mL/ min/1.73m2. The eGFR declines with age. An eGFR of 60-89 may be normal in [facility] mL/min/1. some populations, particularly the elderly, for whom the CKD-EPI formula has not been extensively validated. Use of the eGFR is not recommended in the following populations: [place] [address] [facility] Individuals with unstable creatinine concentrations, including patients and those with serious co-morbid conditions. Patients with extremes in muscle mass or diet. The data above are obtained from the National Kidney Disease Education Program (NKDEP) which additionally recommends that when the eGFR is used in patients with extremes of body mass index for purposes of drug dosing, the eGFR should be multiplied by the estimated BMI. CHEMISTRY Potassium 4.5 meq/L 3.5 - 5.1 02/05 Normal [facility] Lv [facility] CHEMISTRY Sodium Lvl 138 meq/L 135 - 145 02/05 Normal [facility] CHEMISTRY Creatinine 0.9 mg/dL 0.5 - 1.4 02/05 Normal [facility] Lv [facility] CHEMISTRY BUN 15 mg/dL 7 - 22 02/05 Normal [facility] CHEMISTRY Glucose Lvl 115 mg/dL 70 - 99 02/[address] CT 8Interpretive Data: Adult reference range values reflect the clinical guidelines of the [place] [employer]. [facility] HEMATOLOGY Platelet 407 K/CMM 133 - 450 02/05 Normal [facility] HEMATOLOGY MPV 9.0 fL 7.4 - 10.4 02/05 [facility] HEMATOLOGY RDW 14.6 % 11.5 - 02/05 [facility] 14.5 [facility] HEMATOLOGY Hct 26.0 % 36.0 - 02/05 LOW [facility] 48.0 [facility] HEMATOLOGY MCV 103.1 fL 81.0 - 02/05 [facility] [place] 99.0 [facility] HEMATOLOGY MCH 34.2 pg 27.0 - 02/05 [facility] 31.0 [facility] HEMATOLOGY MCHC 33.2 g/dL 32.0 - 02/05 Normal [facility] 36.0 [facility] HEMATOLOGY Hgb 8.6 g/dL 12.0 - 02/05 LOW [facility] 16.0 [facility] HEMATOLOGY WBC X 10x3 10.5 K/CMM 3.7 - 10.4 02/05 [facility] HEMATOLOGY RBC X 10x6 2.53 M/CMM 4.20 - 02/05 [facility] [place] 5.40 /2012 [facility] HEMATOLOGY INR 2.72 0.85 - 02/05 CT 12Interpretive Data: RECOMMENDED RANGES FOR PROTIME INR: [facility] 1. 2.0-3.0 for most medical and surgical thromboembolic states. [facility] 2.5-3.5 for artificial heart valves and recurrent embolism. Center INR SHOULD BE USED ONLY FOR PATIENTS ON STABLE ANTICOAGULANT THERAPY. HEMATOLOGY PROTIME 28.3 s 12.0 - 02/05 [facility] 14.7 /2012 [facility] BEDSIDE Glucose POC 94 mg/dL 70 - 99 02/05 Normal 4Interpretive [facility] GLUCOSE Data: [facility] Upper Reportable Limit: 200 mg/dL. URINALYSIS UA Sq Epi None Seen 02/04 [facility] URINALYSIS UA <=1.0 0.1 - 1.0 02/04 [facility] Urobilinogen mg/dL [facility] URINALYSIS UA RBC null 0 - 2 02/04 Normal [facility] URINALYSIS UA WBC 1 /HPF 0 - 5 02/04 Normal [facility] URINALYSIS UA Hyal Cast 1 /LPF 0 - 2 02/04 Normal [facility] URINALYSIS UA Mucus Few /LPF None Seen 02/04 [facility] URINALYSIS UA Bacteria Occasional None Seen 02/04 [facility] URINALYSIS UA Protein Negative Negative 02/04 Normal [facility] mg/dL [facility] URINALYSIS UA Glucose Negative Negative 02/04 [facility] mg/dL [facility] URINALYSIS UA Bili Negative Negative 02/04 [facility] *NA* [place] (02/04/2013 14:11:01) URINALYSIS UA Ketones Negative Negative 02/04 [facility] mg/dL [facility] URINALYSIS UA Leuk Est Negative Negative 02/04 Normal [facility] (02/04/2013 14:11:01) [place] URINALYSIS UA Blood Negative Negative 02/04 Normal [facility] (02/04/2013 14:11:01) Center URINALYSIS UA Nitrite Negative Negative 02/04 Normal [facility] (02/04/2013 14:11:01) Center URINALYSIS UA pH 5.5 5.0 - 8.0 02/04 Normal [facility] URINALYSIS UA Turbidity Clear Clear 02/04 Normal Medical (02/04/2013 14:11:01) Center URINALYSIS UA Color Yellow Yellow 02/04 Medical *NA* Center (02/04/2013 14:11:01) URINALYSIS UA Spec Grav 1.012 <=1.030 02/04 Normal [facility] HEMATOLOGY INR 2.62 0.85 - 02/04 [place] 13Interpretive Data: RECOMMENDED RANGES FOR PROTIME INR: [facility] 1. 2.0-3.0 for most medical and surgical thromboembolic states. Medical 2.5-3.5 for artificial heart valves and recurrent embolism. Center INR SHOULD BE USED ONLY FOR PATIENTS ON STABLE ANTICOAGULANT THERAPY. HEMATOLOGY aPTT 64.3 s 22.9 - 02/04 CT 15Interpretiv [facility] 35.8 e Data: [facility] Therapeutic Range: 57 - 92 Seconds HEMATOLOGY PROTIME 27.5 s 12.0 - 02/04 [facility] 14. [facility] Chest 2 Chest 2 CHEST 2 VIEWS dated 2013-02-04 11:37:00 02/04 - [facility] views - [facility] COMPARISON: February 02, 2013 Read by: Richard Savage Dictated Date/time: 02/04/13 12:59 Electronically Signed by: Richard Savage MD 02/04/13 13:01 FINAL REPORT CLINICAL INDICATION: Fever FINDINGS: Frontal and lateral chest radiographs are submitted for interpretation. Diffuse lung opacities persist predominantly involving the right upper lobe , however slightly improved as compared to the prior study. Bilateral pleural effusions are again identified. Stable median sternotomy wires in appearance of the heart size and mediastinum. Diffuse degenerative changes of the thoracic spine and osteopenia with incomplete characterization of the vertebral body heights. CONCLUSION: Decrease in diffuse lung opacities which could suggest improving edema or infection. Small bilateral pleural effusions. CHEMISTRY eGFR 69 02/04 6Result Comment: The eGFR is calculated using the CKD-EPI formula. In most young, healthy individuals the eGFR will be >90 mL/ min/1.73m2. The eGFR declines with age. An eGFR of 60-89 may be normal in [facility] mL/min/1. some populations, particularly the elderly, for whom the CKD-EPI formula has not been extensively validated. Use of the eGFR is not recommended in the following populations: [facility] Center Individuals with unstable creatinine concentrations, including patients and those with serious co-morbid conditions. Patients with extremes in muscle mass or diet. The data above are obtained from the National Kidney Disease Education Program (NKDEP) which additionally recommends that when the eGFR is used in patients with extremes of body mass index for purposes of drug dosing, the eGFR should be multiplied by the estimated BMI. CHEMISTRY Glucose Lvl 112 mg/dL 70 - 99 02/[address] CT 9Interpretive Data: Adult reference range values reflect the clinical guidelines of the [place] [employer]. [facility] CHEMISTRY Calcium Lvl 8.2 mg/dL 8.5 - 10.5 02/04 LOW [facility] CHEMISTRY AGAP 14.8 meq/L 10.0 - 02/04 Normal [facility] 20.0 [facility] CHEMISTRY Chloride Lvl 105 meq/L 95 - 109 02/04 Normal [facility] CHEMISTRY Potassium 3.8 meq/L 3.5 - 5.1 02/04 Normal [facility] CHEMISTRY CO2 25 meq/L 24 - 32 02/04 Normal [facility] CHEMISTRY BUN 15 mg/dL 7 - 22 02/04 Normal [facility] CHEMISTRY Sodium Lvl 141 meq/L 135 - 145 02/04 Normal [facility] CHEMISTRY Creatinine 0.8 mg/dL 0.5 - 1.4 02/04 Normal [facility] CHEMISTRY Folate Lvl 31.1 ng/mL >=3.0 02/04 Normal [facility] HEMATOLOGY Platelet 424 K/CMM 133 - 450 02/04 Normal [facility] HEMATOLOGY MPV 9.1 fL 7.4 - 10.4 02/04 Normal [facility] HEMATOLOGY Hgb 9.5 g/dL 12.0 - 02/04 LOW [facility] 16.0 [facility] HEMATOLOGY WBC X 10x3 12.0 K/CMM 3.7 - 10.4 02/04 [facility] HEMATOLOGY RBC X 10x6 2.79 M/CMM 4.20 - 02/[address] [facility] 5.40 [facility] HEMATOLOGY RDW 14.3 % 11.5 - 02/04 [facility] 14.5 [facility] HEMATOLOGY MCV 102.0 fL 81.0 - 02/04 [facility] 99.0 [facility] HEMATOLOGY MCHC 33.2 g/dL 32.0 - 02/04 Normal [facility] 36.0 [facility] HEMATOLOGY Hct 28.5 % 36.0 - 02/04 LOW [facility] 48.0 [facility] HEMATOLOGY MCH 33.9 pg 27.0 - 02/04 [facility] 31.0 [facility] CHEMISTRY BUN 14 mg/dL 7 - 22 02/03 Normal [facility] CHEMISTRY Glucose Lvl 117 mg/dL 70 - 99 02/03 [place] 10Interpretive Data: Adult reference range values reflect the clinical guidelines of the [place] [employer]. [facility] CHEMISTRY Creatinine 1.1 mg/dL 0.5 - 1.4 02/03 Normal [facility] CHEMISTRY eGFR 47 02/03 7Result Comment: The eGFR is calculated using the CKD-EPI formula. In most young, healthy individuals the eGFR will be >90 mL/ min/1.73m2. The eGFR declines with age. An eGFR of 60-89 may be normal in [facility] mL/min/1. some populations, particularly the elderly, for whom the CKD-EPI formula has not been extensively validated. Use of the eGFR is not recommended in the following populations: [place] [address] [facility] Individuals with unstable creatinine concentrations, including patients and those with serious co-morbid conditions. Patients with extremes in muscle mass or diet. The data above are obtained from the National Kidney Disease Education Program (NKDEP) which additionally recommends that when the eGFR is used in patients with extremes of body mass index for purposes of drug dosing, the eGFR should be multiplied by the estimated BMI. CHEMISTRY CO2 17 meq/L 24 - 32 02/03 LOW [facility] CHEMISTRY Chloride Lvl 118 meq/L 95 - 109 02/03 [facility] CHEMISTRY Calcium Lvl 7.8 mg/dL 8.5 - 10.5 02/03 [facility] CHEMISTRY Potassium 4.3 meq/L 3.5 - 5.1 02/03 Normal [facility] CHEMISTRY Sodium Lvl 149 meq/L 135 - 145 02/03 [facility] CHEMISTRY AGAP 18.3 meq/L 10.0 - 02/03 Normal [facility] 20.0 [facility] HEMATOLOGY INR 3.35 0.85 - 02/03 CT 14Interpretive Data: RECOMMENDED RANGES FOR PROTIME INR: [facility] 1.17 2.0-3.0 for most medical and surgical thromboembolic states. Medical 2.5-3.5 for artificial heart valves and recurrent embolism. Center INR SHOULD BE USED ONLY FOR PATIENTS ON STABLE ANTICOAGULANT THERAPY. HEMATOLOGY PROTIME 33.2 s 12.0 - 02/03 [facility] 14.7 [facility] HEMATOLOGY RDW 18.0 % 11.5 - 02/03 [facility] 14.5 [facility] HEMATOLOGY WBC X 10x3 9.8 K/CMM 3.7 - 10.4 02/03 [facility] HEMATOLOGY RBC X 10x6 2.82 M/CMM 4.20 - 02/[address] [facility] 5.40 /2012 [facility] HEMATOLOGY Hct 31.3 % 36.0 - 02/[address] [facility] 48.0 /2012 [facility] HEMATOLOGY MCHC 30.9 g/dL 32.0 - 02/[address] [facility] 36.0 [facility] HEMATOLOGY Platelet 475 K/CMM 133 - 450 02/03 [facility] /2012 [facility] HEMATOLOGY Hgb 9.7 g/dL 12.0 - 02/[address] [facility] 16.0 /2012 [facility] HEMATOLOGY MCV 111.1 fL 81.0 - 02/03 [facility] 99.0 /2012 [facility] HEMATOLOGY MCH 34.3 pg 27.0 - 02/03 [facility] 31.0 /2012 [facility] HEMATOLOGY MPV 9.4 fL 7.4 - 10.4 02/03 Normal [facility] HEMATOLOGY Lymphocytes 13.1 % 20.0 - 02/[address] [facility] 40.0 /2012 [facility] HEMATOLOGY Monocytes 9.2 % 2.0 - 12.0 02/03 [facility] HEMATOLOGY Basophils 1.1 % 0.0 - 1.0 02/03 [facility] HEMATOLOGY Segs-Bands # 6.5 K/CMM 1.5 - 8.1 02/03 [facility] HEMATOLOGY Monocytes # 0.9 K/CMM 0.0 - 0.8 02/03 [facility] HEMATOLOGY Eosinophils 0.9 K/CMM 0.0 - 0.5 02/03 [facility] # /2012 [facility] HEMATOLOGY Lymphocytes 1.3 K/CMM 1.0 - 5.5 02/03 Normal [facility] # /2012 [facility] HEMATOLOGY Basophils # 0.1 K/CMM 0.0 - 0.2 02/03 Normal [facility] HEMATOLOGY Eosinophils 9.6 % 0.0 - 4.0 02/03 [place] [facility] HEMATOLOGY Macrocyte 3+ None Seen 02/03 Medical *NA* Center (02/03/2013 02:57:00) HEMATOLOGY Segs 67.0 % 45.0 - 02/03 Normal [facility] 75.0 [facility] CHEMISTRY BE Art -2 mMol/L -2-2 - 2 02/03 Normal [facility] CHEMISTRY HCO3 Art 21 mMol/L 22 - 26 02/03 LOW [facility] CHEMISTRY O2 Sat Art 98.0 % 95.0 - 02/03 Normal [facility] 100.0 [facility] CHEMISTRY pO2 Art 94 mm[Hg] 80 - 100 02/03 Normal [facility] CHEMISTRY pH Art 7.45 7.35 - 02/03 Normal [facility] 7.45 [facility] CHEMISTRY pCO2 Art 30 mm[Hg] 35 - 45 02/03 CRIT 11Result Comment: [facility] CRITICAL [place] RESULT CALLED TO HAYDEN WATTS AT 02/02/2013 18:26 BY SXP. READ BACK OK. TEST PERFORMED AT 17.10 P.M. RESULT COULD NOT BE RELEASED DUE TO COMPUTERS DOWN. HEMATOLOGY aPTT 52.7 s 22.9 - 02/02 [place] 16Interpretiv [facility] 35.8 /2012 e Data: [facility] Therapeutic Range: 57 - 92 Seconds Chest Chest 1view EXAM: XR CHEST 1 VIEW 02/02 - [facility] - [facility] DATE: Feb 02, 2013 04:01:00 PM Read by: Dawit Bob Dictated Date/time: 02/03/13 08:01 Electronically Signed by: Dawit Bob MD 02/03/13 08:02 FINAL REPORT INDICATION: Abnormal chest sounds COMPARISON: 01/26/2013 TECHNIQUE: AP semi- upright view of the chest FINDINGS: There is increased attenuation at the right lung base, most likely representing atelectasis. Small bilateral effusions are present. The cardiopericardial silhouette and mediastinal contours are stable. IMPRESSION: Basilar atelectasis and small bilateral effusions HEMATOLOGY aPTT 146.0 s 22.9 - 02/02 CRIT 18Interpretiv [facility] 35.8 /2012 e Data: [facility] Therapeutic Range: 57 - 92 Seconds BEDSIDE Gluc POC Notified 02/01 [facility] GLUCOSE Comment 1 RN/ /2012 [facility] TESTING [place] HEMATOLOGY Lymphocytes 1.4 K/CMM 1.0 - 5.5 02/01 Normal [facility] # /2012 [facility] HEMATOLOGY Eosinophils 0.7 K/CMM 0.0 - 0.5 02/01 [place] [facility] # /2012 [facility] HEMATOLOGY Monocytes # 0.8 K/CMM 0.0 - 0.8 02/01 Normal [facility] HEMATOLOGY Basophils 1.1 % 0.0 - 1.0 02/01 [facility] HEMATOLOGY Monocytes 9.4 % 2.0 - 12.0 02/01 Normal [facility] HEMATOLOGY Segs-Bands # 6.0 K/CMM 1.5 - 8.1 02/01 Normal [facility] HEMATOLOGY Eosinophils 7.6 % 0.0 - 4.0 02/01 [facility] HEMATOLOGY Basophils # 0.1 K/CMM 0.0 - 0.2 02/01 Normal [facility]2012 [facility] HEMATOLOGY Macrocyte 1+ None Seen 02/01 ABN [facility] *ABN* [place] (02/01/2013 02:45:00) HEMATOLOGY Lymphocytes 15.2 % 20.0 - 02/01 LOW [facility] 40.0 [facility] HEMATOLOGY Segs 66.7 % 45.0 - 02/01 Normal [facility] 75.0 [facility] Brain wo Brain wo EXAMINATION: CT head without contrast. 01/30 - [facility] contrast contrast CT /2012 - [facility] CT Center DATE: 01/30/2013. Read by: Teo Shin Dictated Date/time: 01/31/13 09:41 Electronically Signed by: Teo Shin MD 01/31/13 09:49 FINAL REPORT INDICATION: Aphasia. DISCUSSION: Noncontrast images the head demonstrate little important change from exam of 01/28/2013. 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 There is no hemorrhagic transformation or extension of the findings, which are mainly confined to the anterior division. IMPRESSION: Normally evolving left MCA ischemic changes. CHEMISTRY Magnesium 1.8 mg/dL 1.8 - 2.4 01/29 Normal [facility] Lvl [facility] CHEMISTRY Phosphorus 2.5 mg/dL 2.5 - 4.5 01/29 Normal [facility] CHEMISTRY Ca Ion WB 1.06 1.05 - 01/29 Normal [place] mMol/L 1. [facility] CHEMISTRY Ca Norm WB 1.05 1.05 - 01/29 Normal [facility] mMol/L 1. [facility] HEMATOLOGY Basophils 0.9 % 0.0 - 1.0 01/29 Normal [facility] HEMATOLOGY Monocytes # 0.9 K/CMM 0.0 - 0.8 01/29 [place] [facility] HEMATOLOGY Segs-Bands # 7.5 K/CMM 1.5 - 8.1 01/29 Normal [facility] HEMATOLOGY Lymphocytes 1.7 K/CMM 1.0 - 5.5 01/29 Normal [facility] /2012 [facility] HEMATOLOGY Basophils # 0.1 K/CMM 0.0 - 0.2 01/29 Normal [facility] HEMATOLOGY Macrocyte 1+ None Seen 01/29 ABN /2012 [facility] *ABN* Center (01/29/2013 02:56:44) HEMATOLOGY Eosinophils 0.5 K/CMM 0.0 - 0.5 01/29 Normal [facility] /2012 [facility] HEMATOLOGY Lymphocytes 16.0 % 20.0 - 01/29 LOW [facility] 40.0 [facility] HEMATOLOGY Segs 69.8 % 45.0 - 01/29 Normal [facility] 75.0 [facility] HEMATOLOGY Monocytes 8.2 % 2.0 - 12.0 01/29 Normal [facility] HEMATOLOGY Eosinophils 5.1 % 0.0 - 4.0 01/29 [place] [facility] BEDSIDE Gluc POC Notified 01/29 [facility] GLUCOSE Comment 1 RN/ /2012 [facility] TESTING [place] Brain wo Brain wo EXAM: CT BRAIN WITHOUT CONTRAST 01/28 - [facility] contrast contrast CT /2012 - [facility] CT Center DATE: Jan 28, 2013 02:53:00 PM Read by: Sathish Mercedes Dictated Date/time: 01/28/13 16:08 Electronically Signed by: Sathish Mercedes MD 01/28/13 16:35 FINAL REPORT INDICATION: Stroke COMPARISON: January 26, 2013 TECHNIQUE: Contiguous axial images of the brain are obtained from the skull base to the vertex utilizing a portable CT scanner without administration of intravenous contrast material. Bone and soft tissue algorithms are provided. FINDINGS: There has been interval expected evolution of the patient's left MCA territory infarct with better defined borders of the region of ischemia evident on the current examination. No hemorrh agic transformation has occurred and there is no evidence of extension of the infarct beyond the margins seen on the patient's MRI. The appearance of the remainder of the brain parenchyma is also unchanged. Incidental imaging of the orbits, paranasal sinuses, skull, and skull base also demonstrates no interval change. IMPRESSION: No hemorrhagic transformation of the left MCA territory infarct. Expected interval evolution of the latter. BEDSIDE Gluc POC Notified 01/28 [facility] GLUCOSE Comment 1 RN/ /2012 [facility] TESTING [place] CHEMISTRY Phosphorus 2.8 mg/dL 2.5 - 4.5 01/28 Normal [facility] CHEMISTRY Ca Norm WB 1.07 1.05 - 01/28 Normal [facility] mMol/L 1. [facility] CHEMISTRY Ca Ion WB 1.08 1.05 - 01/28 Normal [facility] mMol/L 1. [facility] CHEMISTRY Magnesium 1.9 mg/dL 1.8 - 2.4 01/28 [facility] CHEMISTRY Folate Lvl 31.5 ng/mL >=3.0 01/[address] CHEMISTRY Vitamin B12 501 pg/mL 254 - 1320 01/27 Normal [facility] [place] /2012 [facility] URINALYSIS UA <=1.0 0.1 - 1.0 01/27 [facility] Urobilinogen mg/dL [facility] URINALYSIS UA Mucus Few /LPF None Seen 01/27 [facility] URINALYSIS UA Turbidity Clear Clear 01/27 Normal [facility] (01/27/2013 01:13:00) [place] URINALYSIS UA Spec Grav 1.037 <=1.030 01/27 HI [facility]2012 [facility] URINALYSIS UA pH 6.5 5.0 - 8.0 01/[address] URINALYSIS UA Color Yellow Yellow 01/27 [facility] *NA* [place] (01/27/2013 01:13:00) URINALYSIS UA Nitrite Negative Negative 01/27 Normal [facility] (01/27/2013 01:13:00) Center URINALYSIS UA Leuk Est Negative Negative 01/27 Normal [facility] (01/27/2013 01:13:00) Center URINALYSIS UA Sq Epi Moderate Few 01/27 ABN [facility] URINALYSIS UA WBC 1 /HPF 0 - 5 01/27 Normal [facility] URINALYSIS UA Protein Negative Negative 01/27 Normal [facility] mg/dL [facility] URINALYSIS UA Glucose Negative Negative 01/27 [facility] mg/dL [facility] URINALYSIS UA Bili Negative Negative 01/27 [facility] *NA* Center (01/27/2013 01:13:00) URINALYSIS UA Blood Negative Negative 01/27 Normal [facility] (01/27/2013 01:13:00) Center URINALYSIS UA Ketones 10 mg/dL Negative 01/27 ABN [facility] CHEMISTRY CHD Risk 4.00 3.90 - 01/27 Normal [facility] 5.80 [facility] CHEMISTRY HDL 41 mg/dL >=61 01/27 LOW [facility] CHEMISTRY Chol 164 mg/dL <=199 01/27 Normal [facility] CHEMISTRY Trig 120 mg/dL <=149 01/27 Normal [facility] CHEMISTRY LDL 99 mg/dL <=99 01/27 Normal [facility] (Calculated) [facility] CHEMISTRY ASPARTATE 25 unit/L 0 - 37 01/27 Normal [facility] TRANSAMINASE [facility] CHEMISTRY A/G Ratio 0.9 0.7 - 1.6 01/27 Normal [facility] CHEMISTRY Globulin 3.5 g/dL 2.0 - 4.0 01/27 Normal [facility] CHEMISTRY B/C Ratio 20 6 - 25 01/27 Normal [facility] CHEMISTRY Total 6.5 g/dL 6.4 - 8.4 01/27 Normal [facility] Protein [facility] CHEMISTRY Bili Total 0.9 mg/dL 0.2 - 1.3 01/27 Normal [facility] CHEMISTRY ALANINE 9 unit/L 0 - 65 01/27 Normal [facility] AMINOTRANSFE [facility] Center CHEMISTRY Alk Phos 80 unit/L 39 - 136 01/27 Normal [facility] CHEMISTRY Albumin Lvl 3.0 g/dL 3.5 - 5.0 01/27 LOW [facility]2012 [facility] Abdomen AP Abdomen AP EXAM: Abdomen 1 view 01/26 - [facility] view - [facility] DATE: Jan 26, 2013 09:55:00 PM Read by: Spenser Choudhary Dictated Date/time: 01/26/13 23:19 Electronically Signed by: Spenser Choudhary MD 01/26/13 23:21 FINAL REPORT INDICATION:Tube placement/removal/reposition See Clinic Indication COMPARISON: None TECHNIQUE: Three sequential x-rays of the abdomen were obtained FINDINGS: The bowel gas pattern is no obstructive. There is a feeding tube identified on the third film the tip is overlying the expected position of the first portion the duodenum. Contrast is seen in the renal collecting systems bilaterally. The right renal collecting system is mildly dilated and with evidence of a narrowing in the proximal ureter. The distal ureter is also mildly dilated. The left renal collecting system is normal in appearance. IMPRESSION: 1. Feeding tube identified with the tip overlying the first portion of the duodenum. 2. Mildly dilated right renal collecting system, recommend correlation with any known history of UPJ or UVJ obstruction further evaluation with ultrasound and/or CT can be obtained for more complete evaluation. BACTERIAL MRSA by PCR Negative 1 01/26 Normal 1Interpretive Data: Interpretive Data: The [employer] Light[employer] MRSA assay is a qualitative test for the direct detection of nasal colonization with methicillin-resistant Staphylococcus aureus (MRSA) to aid [facility] in the prevention and control of MRSA infections in healthcare settings. A positive result does not indicate an infection or require treatment. A negative result does not exclude colonization or infection. [facility] (01/26/2013 15:15:00) [place] The polymerase chain reaction (PCR) assay detects a proprietary sequence indicative of the integration of the SCCmec cassette into the Staphylococcus aureus chromosome, indicating the presence of MRSA D NA. The assay utilizes FDA cleared IVD reagents. Performance characteristics have been verified by the [facility] within the [facility]. The [facility] atory is authorized under the Clinical Laboratory Improvement Amendment of 1988 (CLIA-88) to perform high complexity testing. CHEMISTRY Hgb A1C 4.8 % <=5.6 01/26 Normal [facility]2012 [facility] CHEMISTRY Globulin 3.7 g/dL 2.0 - 4.0 01/26 Normal [facility]2012 [facility] CHEMISTRY A/G Ratio 0.8 0.7 - 1.6 01/26 Normal [facility]2012 [facility] CHEMISTRY B/C Ratio 25 6 - 25 01/26 Normal [facility]2012 [facility] CHEMISTRY ALANINE 10 unit/L 0 - 65 01/26 Normal [facility] AMINOTRANSFE [facility] RASE [place] CHEMISTRY ASPARTATE 36 unit/L 0 - 37 01/26 Normal [facility] TRANSAMINASE [facility] CHEMISTRY Total 6.7 g/dL 6.4 - 8.4 01/26 Normal [facility] Protein [facility] CHEMISTRY Bili Total 0.7 mg/dL 0.2 - 1.3 01/26 Normal [facility]2012 [facility] CHEMISTRY Albumin Lvl 3.0 g/dL 3.5 - 5.0 01/26 LOW [facility]2012 [facility] CHEMISTRY Alk Phos 79 unit/L 39 - 136 01/[address] Brain/Neck Brain/Neck EXAM: CTA HEAD 01/26 - [facility] CTA CTA /2012 - [facility] EXAM: CTA NECK Read by: Harsh Varela Dictated Date/time: 01/27/13 11:51 Electronically Signed by: Harsh Varela MD 01/27/13 12:11 FINAL REPORT DATE: 01/26/2013 INDICATION: Weakness TECHNIQUE: Contiguous thin section images of the neck and lower brain were obtained utilizing a multidetector scanner after uneventful administration of nonionic iodinated contrast medium. Surface rendered images generated on an independent workstation and computer reformatted sagittal and coronal images are provided. 3-D MIPS are provided. 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 There is good collateral flow distally (at least a TICI 2b). There are [id number]-fzldhieb atherosclerotic plaques in the bilateral carotid bulbs. Opacification of the major dural venous sinuses is normal, with dominance on the left. There are multiple well-corticated lucent lesions in the occipital calvarium with involvement of the internal occipital protuberance. These do not appear to be aggressive and most likely represent arachnoid granulations. CTA NECK: Aortic arch: There are cqe-bmey-urdyyjqh atherosclerotic plaques in the origins of the great vessels. Carotid arteries: There are eccentrically located, densely calcified atherosclerotic plaques in the bilateral carotid bulbs, not resulting in hemodynamically significant stenosis by NASCET criteria. Vertebral arteries: There is normal patency of the cervical course of the bilateral vertebral arteries. Incidental note is made of multiple hypoattenuating nodules in the thyroid gland. IMPRESSION: 1. Left proximal M2 branch occlusion with good distal collateralization ( at least a TICI 2b). Zwq-pudx-udytovyp atherosclerotic plaques in the bilateral carotid siphons 2. Eccentrically located, densely calcified atherosclerotic plaques in the bilateral carotid bulbs, not resulting in hemodynamically significant stenosis of the internal carotid arteries by NASCET criteria 3. Normal patency of the vertebrobasilar arteries 4. Densely calcified atherosclerotic plaques in the origins of the great vessels 6. Incidental note is made of multiple hypoattenuating nodules in the thyroid gland. Consider further evaluation with ultrasound and correlation with thyroid function tests. Brain wo Brain wo EXAM: MRI OF THE BRAIN WITHOUT CONTRAST 01/26 [facility] contrast contrast MRI /2012 - [facility] DATE:Jan 26, 2013 07:53:00 PM Read by: Citlalli Galvan Dictated Date/time: 01/27/13 11:46 Electronically Signed by: Citlalli Galvan MD 01/27/13 11:58 FINAL REPORT CLINICAL HISTORY: Confusion COMPARISON: CT brain without contrast 01/26/2013 TECHNIQUE : Multiplanar imaging of the brain was obtained without contrast. FINDINGS: There is restricted fusion in the left middle cerebral artery territory reflecting recent infarction involving the left frontal lobe/frontal operculum, anterior left temporal lobe, anterior insula, fron toparietal cortex, and deep frontoparietal white matter of the centrum semiovale. There is associated T2 and FLAIR hyperintense signal abnormality and mild gyriform swelling. There is no evidence of int racranial hemorrhage. No significant mass effect or midline shift to the left. Scattered foci of T2 and FLAIR hyperintense signal abnormality in the supratentorial white matter likely represent chronic small vessel ischemic change. There are several tiny old lacunar infarcts particularly in the right lentiform nucleus and right cerebellar hemisphere. The basal cisterns are patent. Portions of the left M2 flow voids in the sylvian fissure are not well seen. There are foci susceptibility in the left sylvian fissure which could represent intraluminal thrombus in the middle cerebral artery branches. The paranasal sinuses, orbits and mastoids are unremarkable. Prior cataract surgery seen bilaterally. IMPRESSION: 1. Recent left middle cerebral artery territory infarction. 2. Several of the left M2 flow voids are not well visualized and there are foci of susceptibility in the left sylvian fissure which could represent intraluminal thrombus. Correlate with CTA. Chest Chest 1view EXAM: CHEST 1 VIEW 01/26 [facility] DATE: Jan 26, 2013 06:15:00 PM Read by: Spenser Choudhary Dictated Date/time: 01/26/13 23:17 Electronically Signed by: Spenser Choudhary MD 01/26/13 23:19 FINAL REPORT INDICATION: CVA/TIA COMPARISON: Prior study dated 07/04/2011 TECHNIQUE: Single portable radiograph of the chest FINDINGS: The cardiac silhouette is mildly enlarged, not significantly changed from prior exam. Multiple median sternotomy wires, surgical marissa and evidence of prior cardiac surgery are again noted, unchanged from prior exam. There is a feeding tube seen in the esophagus, extends in the stomach, the tip is beyond the [id number]. The lungs are clear bilaterally. The costophrenic sulci are clear and well demarcated. The osseous structures and soft tissues are unremarkable. IMPRESSION: 1. Unchanged cardiomegaly with evidence of prior cardiac surgery. 2. No evidence of acute pulmonary process. 3. Feeding tube in stomach, the tip is not visualized as extends beyond the [id number] BEDSIDE Gluc POC 109 mg/dL 70 - 99 07/10 HI 1Interpretive GLUCOSE [facility] Data: [facility] Upper Reportable Limit: 200 mg/dL. BEDSIDE Comment1 Notify 07/10 [facility] GLUCOSE JOAN/ [facility] TESTING BEDSIDE Comment1 Notify 07/10 [facility] GLUCOSE JOAN/ /2011 [facility] TESTING BEDSIDE Gluc POC 106 mg/dL 70 - 99 / HI 2Interpretive GLUCOSE [facility] /2011 Data: [facility] TESTING Upper Reportable Limit: 200 mg/dL. CHEMISTRY AGAP 13.7 meq/L 10.0 - 07/10 Normal MH 20.0 [facility] CHEMISTRY Potassium 3.7 meq/L 3.5 - 5.1 07/10 Normal Lvl /2011 [facility] CHEMISTRY Chloride Lvl 106 meq/L 95 - 109 07/10 Normal MH /2011 [facility] CHEMISTRY Calcium Lvl 9.1 mg/dL 8.5 - 10.5 Normal [facility] CHEMISTRY CO2 29 meq/L 24 - 32 06 Normal MH /2011 [facility] CHEMISTRY Glucose Lvl 97 mg/dL 70 - 99 07/10 Normal 4Interpretive Data: Adult [facility] reference range values reflect the clinical guidelinesof the [place] [employer]. CHEMISTRY Sodium Lvl 145 meq/L 135 - 145 06/ Normal [facility] CHEMISTRY Creatinine 0.9 mg/dL 0.5 - 1.4 07/10 Normal MH Lvl /2011 [facility] CHEMISTRY BUN 14 mg/dL 7 - 22 06 Normal MH /2011 [facility] HEMATOLOGY RDW 16.0 % 11.5 - 06/ HI MH 14.5 /2011 [facility] HEMATOLOGY MCHC 34.0 g/dL 32.0 - 06 Normal MH 36.0 /2011 [facility] HEMATOLOGY MCH 32.0 pg 27.0 - 07/10 HI MH 31.0 /2011 [facility] HEMATOLOGY Platelet 225 K/CMM 133 - 450 07/10 Normal [facility] HEMATOLOGY MPV 8.8 fL 7.4 - 10.4 07/10 Normal MH /2011 [facility] HEMATOLOGY WBC 6.9 K/CMM 3.7 - 10.4 06 Normal MH /2011 [facility] HEMATOLOGY RBC 3.88 M/CMM 4.20 - 06/ LOW MH 5.40 /2011 [facility] HEMATOLOGY Hgb 12.4 g/dL 12.0 - 07/10 Normal 16.0 [facility] HEMATOLOGY MCV 94.1 fL 81.0 - 07/10 Normal 99.0 /2011 [facility] HEMATOLOGY Hct 36.5 % 36.0 - 07/10 Normal 48.0 /2011 [facility] HEMATOLOGY PT 14.4 s 12.0 - 07/10 Normal MH 14.7 /2011 [facility] HEMATOLOGY INR 1.12 0.85 - 07/10 Normal 6Interpretive MH 1.17 /2011 Data: [facility] RECOMMENDED RANGES FOR PROTIME INR: 2.0-3.0 for most medical and surgical thromboemboli c states. 2.5-3.5 for artificial heart valves and recurrent embolism.INR SHOULD BE USED ONLY FOR PATIENTS ON STABLE ANTICOAGULANT THERAPY. BEDSIDE Gluc POC 106 mg/dL 70 - 99 06/ [place] 3Interpretive GLUCOSE [facility] /2011 Data: [facility] TESTING Upper Reportable Limit: 200 mg/dL. BEDSIDE Comment1 Notify 06/03 NA MH GLUCOSE RN/MD /2011 [facility] TESTING CHEMISTRY TSH 2.280 0.360 - 07/09 Normal uIU/mL 3.740 /2011 [facility] CHEMISTRY Chloride Lvl 108 meq/L 95 - 109 07/09 Normal [facility] CHEMISTRY Potassium 3.6 meq/L 3.5 - 5.1 07/09 Normal Lv [facility] CHEMISTRY Sodium Lvl 145 meq/L 135 - 145 07/09 Normal [facility] CHEMISTRY Creatinine 0.8 mg/dL 0.5 - 1.4 07/09 Normal Lvl [facility] CHEMISTRY BUN 16 mg/dL 7 - 22 07/09 Normal [facility] CHEMISTRY Glucose Lvl 102 mg/dL 70 - 99 07/09 HI 5Interpretive Data: Adult [facility] reference range values reflect the clinical guidelinesof the [place] [employer]. CHEMISTRY Calcium Lvl 8.6 mg/dL 8.5 - 10.5 07/09 Normal [facility] CHEMISTRY AGAP 12.6 meq/L 10.0 - 07/09 Normal MH 20.0 [facility] CHEMISTRY CO2 28 meq/L 24 - 32 07/09 Normal [facility] HEMATOLOGY Hgb 11.7 g/dL 12.0 - 07/09 LOW MH 16.0 /2011 [facility] HEMATOLOGY Hct 34.7 % 36.0 - 07/09 LOW MH 48.0 /2011 [facility] HEMATOLOGY MPV 9.1 fL 7.4 - 10.4 07/09 Normal [facility] HEMATOLOGY Platelet 195 K/CMM 133 - 450 07/09 Normal [facility] HEMATOLOGY MCHC 33.8 g/dL 32.0 - 07/09 Normal MH 36.0 /2011 [facility] HEMATOLOGY MCH 31.7 pg 27.0 - 07/09 HI MH 31.0 /2011 [facility] HEMATOLOGY MCV 93.8 fL 81.0 - 07/09 Normal MH 99.0 /2011 [facility] HEMATOLOGY RDW 15.6 % 11.5 - 07/09 HI MH 14.5 /2011 [facility] HEMATOLOGY RBC 3.70 M/CMM 4.20 - 07/09 LOW MH 5.40 /2011 [facility] HEMATOLOGY WBC 7.3 K/CMM 3.7 - 10.4 07/09 Normal [facility] URINALYSIS UA Blood Negative Negative 07/08 Normal [facility] (07/09/2011 17:55:00) URINALYSIS UA 6.0 mg/dL 0.1 - 1.0 07/08 HI Urobilinogen /2011 [facility] URINALYSIS UA Ketones 20 mg/dL Negative 07/08 ABN [facility] *ABN* (07/09/2011 17:55:00) URINALYSIS UA Bili Negative Negative 07/08 NA [facility] *NA* (07/09/2011 17:55:00) URINALYSIS Micro? Performed 07/08 NA [facility] *NA* (07/09/2011 17:55:00) URINALYSIS UA RBC 1 /HPF 0 - 2 07/08 Normal [facility] URINALYSIS UA Leuk Est Small Negative 07/08 ABN [facility] *ABN* (07/09/2011 17:55:00) URINALYSIS UA WBC 7 /HPF 0 - 5 07/08 HI [facility] URINALYSIS UA Sq Epi Many /LPF Few 07/08 ABN [facility] *ABN* (07/09/2011 17:55:00) URINALYSIS UA Bacteria Few /HPF None Seen 07/08 NA [facility] *NA* (07/09/2011 17:55:00) URINALYSIS UA Nitrite Negative Negative 07/08 Normal [facility] (07/09/2011 17:55:00) URINALYSIS UA Protein Negative mg/dL Negative 07/08 Normal [facility] (07/09/2011 17:55:00) URINALYSIS UA pH 7.0 5.0 - 8.0 07/08 Normal [facility] URINALYSIS UA Glucose Negative mg/dL Negative 07/08 NA [facility] *NA* (07/09/2011 17:55:00) URINALYSIS UA Turbidity Clear Clear 07/08 Normal [facility] (07/09/2011 17:55:00) URINALYSIS UA Spec Grav 1.011 <=1.030 07/08 Normal [facility] URINALYSIS UA Color Yellow Yellow 07/08 NA [facility] *NA* (07/09/2011 17:55:00) HEMATOLOGY Hct 36.2 % 36.0 - 07/08 Normal 48.0 [facility] HEMATOLOGY MCV 93.3 fL 81.0 - 07/08 Normal 99.0 [facility] HEMATOLOGY MCH 31.5 pg 27.0 - 07/08 HI 31.0 /2011 [facility] HEMATOLOGY MCHC 33.8 g/dL 32.0 - 06 Normal 36.0 /2011 [facility] HEMATOLOGY RDW 15.4 % 11.5 - 06 HI MH 14.5 /2011 [facility] HEMATOLOGY Platelet 203 K/CMM 133 - 450 06 Normal /2011 [facility] HEMATOLOGY MPV 9.1 fL 7.4 - 10.4 07/08 Normal [facility] HEMATOLOGY WBC 7.8 K/CMM 3.7 - 10.4 06 Normal [facility] HEMATOLOGY RBC 3.88 M/CMM 4.20 - 06 LOW 5.40 /2011 [facility] HEMATOLOGY Hgb 12.2 g/dL 12.0 - 07/08 Normal 16.0 /2011 [facility] BEDSIDE Gluc POC 114 mg/dL 70 - 99 07/07 [place] 2Interpretive GLUCOSE [facility] /2011 Data: [facility] TESTING Upper Reportable Limit: 200 mg/dL. BEDSIDE Comment1 Notify 07/07 NA GLUCOSE RN/MD [facility] TESTING CHEMISTRY Creatinine 1.0 mg/dL 0.5 - 1.4 07/07 Normal Lvl [facility] CHEMISTRY Sodium Lvl 144 meq/L 135 - 145 06 Normal [facility] CHEMISTRY Potassium 4.0 meq/L 3.5 - 5.1 07/07 Normal Lvl [facility] CHEMISTRY Chloride Lvl 105 meq/L 95 - 109 07/07 Normal [facility] CHEMISTRY Glucose Lvl 105 mg/dL 70 - 99 07/07 HI 5Interpretive Data: Adult [facility] reference range values reflect the clinical guidelinesof the [place] [employer]. CHEMISTRY BUN 12 mg/dL 7 - 22 07/07 Normal [facility] CHEMISTRY CO2 31 meq/L 24 - 32 07/07 Normal [facility] CHEMISTRY Calcium Lvl 7.9 mg/dL 8.5 - 10.5 07/07 LOW [facility] CHEMISTRY AGAP 12.0 meq/L 10.0 - 06 Normal 20.0 [facility] CHEMISTRY BNP 525 pg/mL <=100 07/07 HI 9Interpretive Data: [facility] Elevated results are in line with increasing severity of congestive heart failure. Minor elevations between 100 and 300 may be seen with Myocardial Ischemia, Sodium retaining drugs, and compensated/t reated heart failure. HEMATOLOGY Monocytes # 0.9 K/CMM 0.0 - 0.8 06/01 HI MH /2011 [facility] HEMATOLOGY Basophils # 0.0 K/CMM 0.0 - 0.2 06/ Normal /2011 [facility] HEMATOLOGY Eosinophils 0.5 K/CMM 0.0 - 0.5 06/ Normal MH # /2011 [facility] HEMATOLOGY Eosinophils 7.5 % 0.0 - 4.0 06/ HI /2011 [facility] HEMATOLOGY Monocytes 12.6 % 2.0 - 12.0 06/ HI /2011 [facility] HEMATOLOGY Lymphocytes 24.5 % 20.0 - 06/ Normal 40.0 /2011 [facility] HEMATOLOGY Segs 54.7 % 45.0 - 06/ Normal 75.0 /2011 [facility] HEMATOLOGY Basophils 0.7 % 0.0 - 1.0 06/ Normal /2011 [facility] HEMATOLOGY Lymphocytes 1.8 K/CMM 1.0 - 5.5 06/ Normal MH # /2011 [facility] HEMATOLOGY Segs-Bands # 4.0 K/CMM 1.5 - 8.1 07/07 Normal [facility] HEMATOLOGY RBC Morph Normal 07/07 Normal [facility] (07/08/2011 06:00:00) HEMATOLOGY Plt Morph Normal 07/07 Normal /2011 [facility] (07/08/2011 06:00:00) HEMATOLOGY PTT 26.5 s 22.9 - 07/07 Normal 13Interpretiv MH 35.8 /2011 e Data: [facility] Heparin Therapeutic Range: 57 - 92 Seconds HEMATOLOGY PT 14.1 s 12.0 - 07/07 Normal 14.7 /2011 [facility] HEMATOLOGY INR 1.09 0.85 - 07/07 Normal 10Interpretiv 1.17 /2011 e Data: [facility] RECOMMENDED RANGES FOR PROTIME INR: 2.0-3.0 for most medical and surgical thromboemboli c states. 2.5-3.5 for artificial heart valves and recurrent embolism.INR SHOULD BE USED ONLY FOR PATIENTS ON STABLE ANTICOAGULANT THERAPY. HEMATOLOGY Platelet 176 K/CMM 133 - 450 07/07 Normal [facility] HEMATOLOGY RDW 16.7 % 11.5 - 06 HI 14.5 /2011 [facility] HEMATOLOGY RBC 3.41 M/CMM 4.20 - 06/ LOW 5.40 /2011 [facility] HEMATOLOGY Hgb 10.6 g/dL 12.0 - 07/07 LOW 16.0 [facility] HEMATOLOGY MPV 8.6 fL 7.4 - 10.4 07/07 Normal MH /2011 [facility] HEMATOLOGY MCHC 33.9 g/dL 32.0 - 07/07 Normal MH 36.0 /2011 [facility] HEMATOLOGY MCH 31.3 pg 27.0 - 07/07 HI MH 31.0 /2011 [facility] HEMATOLOGY Hct 31.5 % 36.0 - 07/07 LOW MH 48.0 /2011 [facility] HEMATOLOGY MCV 92.3 fL 81.0 - 07/07 Normal MH 99.0 /2011 [facility] HEMATOLOGY WBC 7.3 K/CMM 3.7 - 10.4 07/07 Normal MH /2011 [facility] HEMATOLOGY Hgb 10.6 g/dL 12.0 - 07/07 LOW MH 16.0 /2011 [facility] HEMATOLOGY Hct 31.3 % 36.0 - 07/07 LOW MH 48.0 /2011 [facility] BEDSIDE Comment1 Assess 07/07 NA GLUCOSE Patient /2011 [facility] TESTING BEDSIDE Gluc POC 139 mg/dL 70 - 99 07/07 HI 3Interpretive GLUCOSE [facility] Data: [facility] TESTING Upper Reportable Limit: 200 mg/dL. HEMATOLOGY Hct 32.3 % 36.0 - 07/06 LOW MH 48.0 [facility] HEMATOLOGY Hgb 11.0 g/dL 12.0 - 07/06 LOW MH 16.0 [facility] BEDSIDE Gluc POC 123 mg/dL 70 - 99 07/06 HI 4Interpretive GLUCOSE [facility] Data: [facility] TESTING Upper Reportable Limit: 200 mg/dL. BEDSIDE Comment1 Notify 07/06 NA GLUCOSE RN/MD /2011 [facility] TESTING BLOOD BANK FFP product Product available 07/06 Normal MH RESULTS /2011 [facility] (07/07/2011 11:01:00) BLOOD BANK RBC product Product available 07/06 Normal MH RESULTS /2011 [facility] (07/07/2011 10:27:00) CHEMISTRY AGAP 10.2 meq/L 10.0 - 07/06 Normal MH 20.0 [facility] CHEMISTRY CO2 27 meq/L 24 - 32 07/06 Normal MH [facility] CHEMISTRY Calcium Lvl 6.5 mg/dL 8.5 - 10.5 07/06 CRIT 8Result Comment: [facility] Critical Result(s) called to Melania at 07/07/2011 6:34 by [facility]. Read back OK. CHEMISTRY Glucose Lvl 103 mg/dL 70 - 99 07/06 HI 6Interpretive Data: Adult [facility] reference range values reflect the clinical guidelinesof the [place] [employer]. CHEMISTRY Creatinine 0.7 mg/dL 0.5 - 1.4 07/06 Normal MH Lvl [facility] CHEMISTRY Chloride Lvl 114 meq/L 95 - 109 07/06 HI [facility] CHEMISTRY Potassium 3.2 meq/L 3.5 - 5.1 07/06 LOW [facility] Lvl /2011 [facility] [facility] CHEMISTRY Sodium Lvl 148 meq/L 135 - 145 07/06 HI [facility] CHEMISTRY BUN 14 mg/dL 7 - 22 07/06 Normal /2011 [facility] HEMATOLOGY RBC 2.71 M/CMM 4.20 - 07/06 LOW MH 5.40 /2011 [facility] HEMATOLOGY WBC 6.6 K/CMM 3.7 - 10.4 07/06 Normal [facility] HEMATOLOGY MCH 32.6 pg 27.0 - 07/06 HI MH 31.0 [facility] HEMATOLOGY MCHC 35.0 g/dL 32.0 - 07/06 Normal MH 36.0 [facility] HEMATOLOGY MCV 93.1 fL 81.0 - 07/06 Normal MH 99.0 /2011 [facility] HEMATOLOGY MPV 9.1 fL 7.4 - 10.4 07/06 Normal [facility] HEMATOLOGY RDW 16.3 % 11.5 - 07/06 HI MH 14.5 [facility] HEMATOLOGY Platelet 134 K/CMM 133 - 450 07/06 Normal [facility] HEMATOLOGY Eosinophils 0.3 K/CMM 0.0 - 0.5 07/06 Normal MH # /2011 [facility] HEMATOLOGY Monocytes 11.3 % 2.0 - 12.0 07/06 Normal [facility] HEMATOLOGY Eosinophils 5.0 % 0.0 - 4.0 07/06 HI MH /2011 [facility] HEMATOLOGY Basophils # 0.0 K/CMM 0.0 - 0.2 07/06 Normal [facility] HEMATOLOGY Lymphocytes 32.7 % 20.0 - 07/06 Normal MH 40.0 /2011 [facility] HEMATOLOGY Monocytes # 0.7 K/CMM 0.0 - 0.8 07/06 Normal [facility] HEMATOLOGY Basophils 0.5 % 0.0 - 1.0 07/06 Normal /2011 [facility] HEMATOLOGY Segs-Bands # 3.3 K/CMM 1.5 - 8.1 07/06 Normal [facility] HEMATOLOGY Lymphocytes 2.2 K/CMM 1.0 - 5.5 07/06 Normal MH # [facility] HEMATOLOGY Segs 50.5 % 45.0 - 07/06 Normal MH 75.0 [facility] CHEMISTRY Magnesium 1.7 mg/dL 1.8 - 2.4 07/05 LOW MH Lvl [facility] CHEMISTRY Phosphorus 2.3 mg/dL 2.5 - 4.5 07/05 LOW MH [facility] CHEMISTRY Ca Norm 1.00 1.16 - 07/05 LOW MH mMol/L . [facility] CHEMISTRY Ca Ion 1.03 1.16 - 07/05 LOW MH mMol/L . [facility] CHEMISTRY Ca Norm mgdL 4.00 mg/dL 4.65 - 07/05 LOW MH . [facility] CHEMISTRY Ca Ion mgdL 4.12 mg/dL 4.65 - 07/05 LOW MH . [facility] CHEMISTRY AST 11 U/L 0 - 37 07/05 Normal [facility] CHEMISTRY Bili Total 0.9 mg/dL 0.2 - 1.3 07/05 Normal [facility] CHEMISTRY Total 5.8 g/dL 6.4 - 8.4 07/05 LOW [facility] CHEMISTRY Chloride Lvl 110 meq/L 95 - 109 07/05 HI MH [facility] CHEMISTRY Potassium 3.5 meq/L 3.5 - 5.1 07/05 Normal Lvl [facility] CHEMISTRY Calcium Lvl 7.2 mg/dL 8.5 - 10.5 07/05 LOW MH [facility] CHEMISTRY CO2 28 meq/L 24 - 32 07/05 Normal MH [facility] CHEMISTRY Alk Phos 46 U/L 39 - 136 07/05 Normal [facility] CHEMISTRY ALT 12 U/L 0 - 65 07/05 Normal [facility] CHEMISTRY Albumin Lvl 3.2 g/dL 3.5 - 5.0 07/05 LOW MH [facility] CHEMISTRY BUN 25 mg/dL 7 - 22 07/05 HI MH [facility] CHEMISTRY Sodium Lvl 146 meq/L 135 - 145 07/05 HI [facility] CHEMISTRY Glucose Lvl 128 mg/dL 70 - 99 07/05 HI 7Interpretive Data: Adult [facility] reference range values reflect the clinical guidelinesof the [place] [employer]. CHEMISTRY Creatinine 0.9 mg/dL 0.5 - 1.4 07/05 Normal MH Lvl [facility] CHEMISTRY A/G Ratio 1.2 0.7 - 1.6 05/ Normal /2011 [facility] CHEMISTRY Globulin 2.6 g/dL 2.0 - 4.0 05/ Normal /2011 [facility] CHEMISTRY AGAP 11.5 meq/L 10.0 - 07/05 Normal 20.0 [facility] CHEMISTRY B/C Ratio 28 6 - 25 05/ HI /2011 [facility] HEMATOLOGY Lymphocytes 21.7 % 20.0 - 05 Normal MH 40.0 /2011 [facility] HEMATOLOGY Monocytes 9.5 % 2.0 - 12.0 05/ Normal MH /2011 [facility] HEMATOLOGY Eosinophils 4.4 % 0.0 - 4.0 05/ HI MH /2011 [facility] HEMATOLOGY Segs 64.2 % 45.0 - 07/05 Normal 75.0 /2011 [facility] HEMATOLOGY Segs-Bands # 4.9 K/CMM 1.5 - 8.1 07/05 Normal /2011 [facility] HEMATOLOGY Basophils # 0.0 K/CMM 0.0 - 0.2 07/05 Normal [facility] HEMATOLOGY Eosinophils 0.3 K/CMM 0.0 - 0.5 05/ Normal # /2011 [facility] HEMATOLOGY Monocytes # 0.7 K/CMM 0.0 - 0.8 05/ Normal MH /2011 [facility] HEMATOLOGY Lymphocytes 1.7 K/CMM 1.0 - 5.5 / Normal /2011 [facility] HEMATOLOGY Basophils 0.2 % 0.0 - 1.0 / Normal MH /2011 [facility] HEMATOLOGY PTT 27.0 s 22.9 - 07/05 Normal 14Interpretiv 35.8 /2012 e Data: [facility] Heparin Therapeutic Range: 57 - 92 Seconds HEMATOLOGY PT 16.3 s 12.0 - 30 HI 14.7 /2011 [facility] HEMATOLOGY INR 1.32 0.85 - 07/05 HI 11Interpretiv 1.17 /2011 e Data: [facility] RECOMMENDED RANGES FOR PROTIME INR: 2.0-3.0 for most medical and surgical thromboemboli c states. 2.5-3.5 for artificial heart valves and recurrent embolism.INR SHOULD BE USED ONLY FOR PATIENTS ON STABLE ANTICOAGULANT THERAPY. HEMATOLOGY MCV 92.2 fL 81.0 - 07/05 Normal 99.0 /2011 [facility] HEMATOLOGY MCH 32.2 pg 27.0 - 0530 HI MH 31.0 /2011 [facility] HEMATOLOGY RBC 3.30 M/CMM 4.20 - 07/05 LOW MH 5.40 /2011 [facility] HEMATOLOGY WBC 7.7 K/CMM 3.7 - 10.4 07/05 Normal [facility] HEMATOLOGY MCHC 34.9 g/dL 32.0 - 07/05 Normal 36.0 [facility] HEMATOLOGY MPV 9.0 fL 7.4 - 10.4 07/05 Normal [facility] HEMATOLOGY Platelet 142 K/CMM 133 - 450 07/05 Normal [facility] HEMATOLOGY RDW 16.8 % 11.5 - 07/05 HI 14.5 [facility] CHEMISTRY CK MB Index 2.0 0.0 - 2.5 07/04 Normal [facility] CHEMISTRY CK MB 1.1 ng/mL 0.5 - 3.6 07/04 Normal [facility] CHEMISTRY Troponin-I 0.26 ng/mL 0.00 - 07/04 Normal 0.40 [facility] CHEMISTRY Total CK 55 U/L 12 - 191 07/04 Normal [facility] CHEMISTRY Globulin 2.6 g/dL 2.0 - 4.0 07/04 Normal [facility] CHEMISTRY Total 6.4 g/dL 6.4 - 8.4 07/04 Normal [facility] CHEMISTRY Albumin Lvl 3.8 g/dL 3.5 - 5.0 07/04 Normal [facility] CHEMISTRY B/C Ratio 36 6 - 25 07/04 HI [facility] CHEMISTRY Bili Total 1.5 mg/dL 0.2 - 1.3 07/04 HI [facility] CHEMISTRY AST 11 U/L 0 - 37 07/04 Normal [facility] CHEMISTRY A/G Ratio 1.5 0.7 - 1.6 07/04 Normal [facility] CHEMISTRY ALT 12 U/L 0 - 65 07/04 Normal [facility] CHEMISTRY Alk Phos 46 U/L 39 - 136 07/04 Normal [facility] HEMATOLOGY INR 1.48 0.85 - 07/04 HI 12Interpretiv MH 1. e Data: [facility] RECOMMENDED RANGES FOR PROTIME INR: 2.0-3.0 for most medical and surgical thromboemboli c states. 2.5-3.5 for artificial heart valves and recurrent embolism.INR SHOULD BE USED ONLY FOR PATIENTS ON STABLE ANTICOAGULANT THERAPY. HEMATOLOGY PT 17.8 s 12.0 - 07/04 HI MH 14.7 [facility] HEMATOLOGY PTT 24.7 s 22.9 - 07/04 Normal 15Interpretiv MH 35.8 /2011 e Data: [facility] Heparin Therapeutic Range: 57 - 92 Seconds BLOOD BANK RBC product Product available 07/04 Normal MH RESULTS /2011 [facility] (07/05/2011 03:00:00) CHEMISTRY CK MB Index 2.9 0.0 - 2.5 07/04 HI MH /2011 [facility] CHEMISTRY Troponin-I 0.15 ng/mL 0.00 - 07/04 Normal 0.40 [facility] CHEMISTRY CK MB 1.5 ng/mL 0.5 - 3.6 07/04 Normal MH [facility] CHEMISTRY Total CK 51 U/L 12 - 191 07/04 Normal MH [facility] CHEMISTRY Phosphorus 2.7 mg/dL 2.5 - 4.5 07/04 Normal [facility] CHEMISTRY Magnesium 1.8 mg/dL 1.8 - 2.4 07/04 Normal Lvl [facility] CHEMISTRY Ca Ion 1.15 1.16 - 07/04 LOW MH mMol/L 1. [facility] CHEMISTRY Ca Ion mgdL 4.60 mg/dL 4.65 - 07/04 LOW MH 5. [facility] CHEMISTRY Ca Norm 1.17 1.16 - 07/04 Normal MH mMol/L 1. [facility] CHEMISTRY Ca Norm mgdL 4.68 mg/dL 4.65 - 07/04 Normal MH 5. [facility] BACTERIAL MRSA by PCR Negative 1 07/04 Normal 1Interpretive - Data: [facility] (07/04/2011 20:30:00) INTERPRETATIO N: Negative..... .No MRSA DNA detected by PCR Positive..... .MRSA DNA detected by PCRASSAY LIMITATIONS:T his is a screening test for colonization by MRSA. A positive test result indicates the patient is colonized by MRSA, but does not necessarily mean that an infection is present or that treatment is necessary. Likewise, a negative test does not exclude colonization or infection. Patients should be evaluatedclin ically for symptoms and signs of infection before making therapeutic decisions. Routine decolonizatio n is discouraged and should only be considered for select patients after consultation with an infectious diseases specialist. BLOOD BANK RBC product Product available 07/03 Normal MH RESULTS [facility] (07/04/2011 18:14:00) BLOOD BANK TRXN Path Product: 07/03 NA MH RESULTS Interp Fresh /2011 [facility] Frozen Plasma_. Unit #: [id number] etation: [employer] medical record reviewed. Signs and symptoms most consisten with nonspecifi c reaction to the transfusio n event. No evidence of a hemolytic transfusio n reaction.P athologist : Colby Hedrick, #[id number] ult completed "Investiga tion of transfusio n reaction" form. BLOOD BANK Hemolysis Ck None 07/03 Normal MH RESULTS /2011 [facility] (07/04/2011 15:15:00) CHEMISTRY Troponin-I 0.04 ng/mL 0.00 - 07/03 Normal 0.40 [facility] CHEMISTRY Total CK 36 U/L 12 - 191 07/03 Normal [facility] CHEMISTRY CK MB 1.1 ng/mL 0.5 - 3.6 07/03 Normal [facility] CHEMISTRY CK MB Index 3.1 0.0 - 2.5 07/03 HI [facility] BLOOD BANK FFP product Product available 07/03 Normal MH RESULTS /2011 [facility] (07/04/2011 09:38:00) BLOOD BANK Antibody Negative 07/03 Normal RESULTS Scrn /2011 [facility] (07/04/2011 05:20:00) BLOOD BANK ABO/Rh B POS 07/03 Unknown MH RESULTS [facility] CHEMISTRY B/C Ratio 60 6 - 25 07/03 HI [facility] CHEMISTRY Globulin 2.6 g/dL 2.0 - 4.0 07/03 Normal [facility] CHEMISTRY A/G Ratio 1.3 0.7 - 1.6 07/03 Normal [facility] CHEMISTRY Total 5.9 g/dL 6.4 - 8.4 07/03 LOW Protein [facility] CHEMISTRY AST 9 U/L 0 - 37 07/03 Normal [facility] CHEMISTRY ALT 9 U/L 0 - 65 07/03 Normal [facility] CHEMISTRY Alk Phos 37 U/L 39 - 136 07/03 LOW [facility] CHEMISTRY Albumin Lvl 3.3 g/dL 3.5 - 5.0 07/03 LOW [facility] CHEMISTRY Bili Total 0.3 mg/dL 0.2 - 1.3 07/03 Normal [facility] Vital Signs Vital Sign Value Date Comments Source Temperature Oral (F) 98.6 F 02/06/2013 [facility] Heart Rate 98 02/06/2013 [facility] Respitory Rate 20 02/06/2013 [facility] Systolic (mm Hg) 131 02/06/2013 [facility] Diastolic (mm Hg) 85 02/06/2013 [facility] Heart Rate 85 02/06/2013 [facility] Respitory Rate 20 02/06/2013 [facility] Systolic (mm Hg) 134 02/06/2013 [facility] Diastolic (mm Hg) 81 02/06/2013 [facility] Temperature Oral (F) 98.6 F 02/06/2013 [facility] Heart Rate 70 02/05/2013 [facility] Respitory Rate 17 02/05/2013 [facility] Temperature Oral (F) 96.3 F 02/05/2013 [facility] Systolic (mm Hg) 106 02/05/2013 [facility] Diastolic (mm Hg) 44 02/05/2013 [facility] Height 162.56 cm 01/26/2013 [facility] Weight 65.005 01/26/2013 [facility] Weight 66 01/26/2013 [facility] Height 170.18 cm 01/26/2013 [facility] Systolic (mm Hg) 130 07/11/2011 [facility] Diastolic (mm Hg) 68 07/11/2011 [facility] Temperature Oral (F) 96.7 F 07/11/2011 [facility] Heart Rate 67 07/11/2011 [facility] Respitory Rate 20 07/11/2011 [facility] Diastolic (mm Hg) 67 07/11/2011 [facility] Systolic (mm Hg) 112 07/11/2011 [facility] Respitory Rate 18 07/11/2011 [facility] Heart Rate 67 07/11/2011 [facility] Temperature Oral (F) 97.9 F 07/11/2011 [facility] Respitory Rate 16 07/11/2011 [facility] Systolic (mm Hg) 117 07/11/2011 [facility] Temperature Oral (F) 98.2 F 07/11/2011 [facility] Diastolic (mm Hg) 79 07/11/2011 [facility] Heart Rate 76 07/11/2011 [facility] Weight 65.400 07/09/2011 [facility] Height 183.00 cm 07/09/2011 [facility] Diastolic (mm Hg) 69 07/08/2011 [facility] Temperature Oral (F) 98.2 F 07/08/2011 [facility] Heart Rate 61 07/08/2011 [facility] Systolic (mm Hg) 128 07/08/2011 [facility] Respitory Rate 18 07/08/2011 [facility] Diastolic (mm Hg) 69 07/08/2011 [facility] Systolic (mm Hg) 128 07/08/2011 [facility] Respitory Rate 20 07/08/2011 [facility] Heart Rate 61 07/08/2011 [facility] Temperature Oral (F) 98.2 F 07/08/2011 [facility] Heart Rate 64 07/08/2011 [facility] Temperature Oral (F) 98.1 F 07/08/2011 [facility] Respitory Rate 18 07/08/2011 [facility] Diastolic (mm Hg) 64 07/08/2011 [facility] Systolic (mm Hg) 126 07/08/2011 [facility] Weight 67.700 07/04/2011 [facility] Height 160.02 cm 07/04/2011 [facility] Encounters Location Location Encounter Encounter Reason Attending ADM DC Status Source Details Type Number For Provider Date Date Visit Inpatient [id number] GI STEVEN 07/03 07/07 Active [facility] BLEED KG /2011 [facility] OU [id number] GI HILARY 07/08 07/10 Active [facility] BLEED PAZ /2011 [facility] [id number] STROKE SHAYAN 01/26 02/05 Active [facility] LUZ MARINA /2012 [facility] [id number] MIGUEL 09/13 Active [facility] KAL /2017 [facility] Procedures Procedure Code Date Perfomer Comments Source CABG x 4 - [id number] 02/07/1992 [facility] Coronary artery Medical bypass grafts x 4 Center Hip replacement [id number] [facility]
--- OUTSIDE RECORDS SUMMARY | 2017-09-02 06:01 | XMS REPORT | CCD ---
:1930 Author Organization [facility] Care Team Providers Name Role Phone Braxton Paz Consulting Provider Allergies, Adverse Reactions, Alerts Substance Reaction Status PHENobarbital Active Problem List Condition Effective Dates Status Acute GI bleeding Active AF - Atrial fibrillation Active CAD - Coronary artery disease Active Chest pain Active CHF - Congestive heart failure Active HTN - Hypertension Active Medications Medication Instructions Start Date End Date Status GoLYTELY 4,000 mL, Route: PO, Drug 07/10/2011 07/10/2011 Completed Form: PDR/REC, ONCE, Start date: 07/10/11 11:00:00, Stop date: 07/10/11 11:00:00 Carafate 1 gm, 1 tab, Route: PO, 07/09/2011 07/11/2011 Discontinued Drug form: TAB, QID-Before Meals, Start date: 07/09/11 21:00:00, Duration: 30 day, Stop date: 08/08/11 16:30:00 Protonix 40 mg, Route: IVP, Drug 07/09/2011 07/11/2011 Discontinued form: INJ, Q12H, Start date: 07/09/11 17:47:00, Duration: 30 day, Stop date: 08/08/11 9:00:00 insulin regular human 5 unit, 0.05 mL, Route: 07/09/2011 07/11/2011 Discontinued recombinant 100 units/mL SUB-Q, Drug form: SOLN, injectable solution ONCALL, Start date: 07/09/11 18:00:00, Duration: 30 day, Stop date: 08/08/11 17:59:00 Tylenol 650 mg, 2 tab, Route: PO, 07/09/2011 07/11/2011 Discontinued Drug form: TAB, Q4H, PRN Pain/Fever, Start date: 07/09/11 17:44:00, Duration: 30 day, Stop date: 08/08/11 17:43:00 Restoril 15 mg, 1 cap, Route: PO, 07/09/2011 07/11/2011 Discontinued Drug form: CAP, Bedtime, PRN Sleep, Start date: 07/09/11 17:44:00, Duration: 30 day, Stop date: 08/08/11 17:43:00 Aldactone 25 mg, 1 tab, Route: PO, 07/10/2011 07/11/2011 Discontinued Drug form: TAB, Daily, Start date: 07/10/11 9:00:00, Duration: 30 day, Stop date: 08/08/11 9:00:00 BD Normal Saline Flush 10 mL, Route: IVP, Drug 07/09/2011 07/11/2011 Discontinued Form: INJ, PRN, PRN Line Flush, Start date: 07/09/11 17:43:00, Duration: 30 day, Stop date: 08/08/11 17:42:00 Sodium Chloride 0.9% IV 250 mL, Route: IVPB, 07/09/2011 07/11/2011 Discontinued Start date: 07/09/11 17:43:00, Duration: 30 day, Stop date: 08/08/11 17:42:00, PRN Line Flush hydrALAZINE 25 mg oral 50 mg, 2 tab, Route: PO, 07/10/2011 07/11/2011 Discontinued tablet Drug form: TAB, TID, Start date: 07/10/11 9:00:00, Duration: 30 day, Stop date: 08/08/11 17:00:00 Lopressor 12.5 mg, 0.5 tab, Route: 07/10/2011 07/11/2011 Discontinued PO, Drug form: TAB, BID, Start date: 07/10/11 9:00:00, Duration: 30 day, Stop date: 08/08/11 17:00:00 Prinivil 10 mg, 1 tab, Route: PO, 07/10/2011 07/11/2011 Discontinued Drug form: TAB, Daily, Start date: 07/10/11 9:00:00, Duration: 30 day, Stop date: 08/08/11 9:00:00 Zocor 20 mg, 1 tab, Route: PO, 07/09/2011 07/11/2011 Discontinued Drug form: TAB, Bedtime, Start date: 07/09/11 21:00:00, Duration: 30 day, Stop date: 08/07/11 21:00:00 Monoket 20 mg, 1 tab, Route: PO, 07/10/2011 07/11/2011 Discontinued Drug form: TAB, TID, Start date: 07/10/11 9:00:00, Duration: 30 day, Stop date: 08/08/11 17:00:00 Vital Signs Most recent to oldest 1 2 3 [Reference Range]: Height 183.00 cm (07/09/2011 17:13:00) Temperature Oral 96.7 DegF 97.9 DegF 98.2 DegF [96.4-99.1 DegF] (07/11/2011 14:01:00) (07/11/2011 08:00:00) (07/11/2011 06: 00:00) Systolic Blood Pressure 130 mmHg 112 mmHg 117 mmHg [90-140 mmHg] (07/11/2011 14:01:00) (07/11/2011 08:00:00) (07/11/2011 06:00: 00) Diastolic Blood Pressure 68 mmHg 67 mmHg 79 mmHg [60-90 mmHg] (07/11/2011 14:01:00) (07/11/2011 08:00:00) (07/11/2011 06:00: 00) Respiratory Rate [14-20 20 BRMIN 18 BRMIN 16 BRMIN BRMIN] (07/11/2011 14:01:00) (07/11/2011 08:00:00) (07/11/2011 06:00:00) Peripheral Pulse Rate 67 bpm 67 bpm 76 bpm [60-100 bpm] (07/11/2011 14:01:00) (07/11/2011 08:00:00) (07/11/2011 06:00: 00) Weight 65.400 kg (07/09/2011 17:13:00) Results BEDSIDE GLUCOSE TESTING Most recent to oldest 1 2 3 [Reference Range]: Gluc POC Lifscn [70-99 109 mg/dL 1 106 mg/dL 2 106 mg/dL 3 mg/dL] *HI* *HI* *HI* (07/11/2011 12:09:00) (07/11/2011 06:56:00) (07/10/2011 21:00:00) Comment1 Notify RN/MD Notify RN/MD Notify RN/MD *NA* *NA* *NA* (07/11/2011 12:09:00) (07/11/2011 06:56:00) (07/10/2011 11:27:00) 1Interpretive Data: Upper Reportable Limit: 200 mg/dL.2Interpretive Data: Upper Reportable Limit: 200 mg/dL.3Interpretive Data: Upper Reportable Limit: 200 mg/dL.URINALYSIS Most recent to oldest [Reference Range]: 1 2 3 UA Turbidity [Clear] Clear (07/09/2011 17:55:00) UA Color [Yellow] Yellow *NA* (07/09/2011 17:55:00) UA pH [5.0-8.0] 7.0 (07/09/2011 17:55:00) UA Spec Grav [<=1.030] 1.011 (07/09/2011 17:55:00) UA Glucose [Negative mg/dL] Negative mg/dL *NA* (07/09/2011 17:55:00) UA Blood [Negative] Negative (07/09/2011 17:55:00) UA Ketones [Negative mg/dL] 20 mg/dL *ABN* (07/09/2011 17:55:00) UA Protein [Negative mg/dL] Negative mg/dL (07/09/2011 17:55:00) UA Urobilinogen [0.1-1.0 mg/dL] 6.0 mg/dL *HI* (07/09/2011 17:55:00) UA Bili [Negative] Negative *NA* (07/09/2011 17:55:00) UA Leuk Est [Negative] Small *ABN* (07/09/2011 17:55:00) UA Nitrite [Negative] Negative (07/09/2011 17:55:00) UA WBC [0-5 /HPF] 7 /HPF *HI* (07/09/2011 17:55:00) UA RBC [0-2 /HPF] 1 /HPF (07/09/2011 17:55:00) UA Bacteria [None Seen /HPF] Few /HPF *NA* (07/09/2011 17:55:00) UA Sq Epi [Few /LPF] Many /LPF *ABN* (07/09/2011 17:55:00) Micro? Performed *NA* (07/09/2011 17:55:00) CHEMISTRY Most recent to oldest [Reference 1 2 3 Range]: Sodium Lvl [135-145 mEq/L] 145 mEq/L 145 mEq/L (07/11/2011 06:05:00) (07/10/2011 04:10:00) Potassium Lvl [3.5-5.1 mEq/L] 3.7 mEq/L 3.6 mEq/L (07/11/2011 06:05:00) (07/10/2011 04:10:00) Chloride Lvl [95-109 mEq/L] 106 mEq/L 108 mEq/L (07/11/2011 06:05:00) (07/10/2011 04:10:00) CO2 [24-32 mEq/L] 29 mEq/L 28 mEq/L (07/11/2011 06:05:00) (07/10/2011 04:10:00) AGAP [10.0-20.0 mEq/L] 13.7 mEq/L 12.6 mEq/L (07/11/2011 06:05:00) (07/10/2011 04:10:00) Creatinine Lvl [0.5-1.4 mg/dL] 0.9 mg/dL 0.8 mg/dL (07/11/2011 06:05:00) (07/10/2011 04:10:00) BUN [7-22 mg/dL] 14 mg/dL 16 mg/dL (07/11/2011 06:05:00) (07/10/2011 04:10:00) Glucose Lvl [70-99 mg/dL] 97 mg/dL 4 102 mg/dL 5 (07/11/2011 06:05:00) *HI* (07/10/2011 04:10:00) Calcium Lvl [8.5-10.5 mg/dL] 9.1 mg/dL 8.6 mg/dL (07/11/2011 06:05:00) (07/10/2011 04:10:00) TSH [0.360-3.740 uIU/mL] 2.280 uIU/mL (07/10/2011 04:10:00) 4Interpretive Data: Adult reference range values reflect the clinical guidelinesof the [place] [employer].5Interpretive Data: Adult reference range values reflect the clinical guidelinesof the [place] [employer].HEMATOLOGY Most recent to oldest 1 2 3 [Reference Range]: WBC [3.7-10.4 K/CMM] 6.9 K/CMM 7.3 K/CMM 7.8 K/CMM (07/11/2011 06:05:00) (07/10/2011 04:10:00) (07/09/2011 16:55:00) RBC [4.20-5.40 M/CMM] 3.88 M/CMM 3.70 M/CMM 3.88 M/CMM *LOW* *LOW* *LOW* (07/11/2011 06:05:00) (07/10/2011 04:10:00) (07/09/2011 16:55:00) Hgb [12.0-16.0 g/dL] 12.4 g/dL 11.7 g/dL 12.2 g/dL (07/11/2011 06:05:00) *LOW* (07/09/2011 16:55:00) (07/10/2011 04:10:00) Hct [36.0-48.0 %] 36.5 % 34.7 % 36.2 % (07/11/2011 06:05:00) *LOW* (07/09/2011 16:55:00) (07/10/2011 04:10:00) MCV [81.0-99.0 fL] 94.1 fL 93.8 fL 93.3 fL (07/11/2011 06:05:00) (07/10/2011 04:10:00) (07/09/2011 16:55:00) MCH [27.0-31.0 pg] 32.0 pg 31.7 pg 31.5 pg *HI* *HI* *HI* (07/11/2011 06:05:00) (07/10/2011 04:10:00) (07/09/2011 16:55:00) MCHC [32.0-36.0 g/dL] 34.0 g/dL 33.8 g/dL 33.8 g/dL (07/11/2011 06:05:00) (07/10/2011 04:10:00) (07/09/2011 16:55:00) RDW [11.5-14.5 %] 16.0 % 15.6 % 15.4 % *HI* *HI* *HI* (07/11/2011 06:05:00) (07/10/2011 04:10:00) (07/09/2011 16:55:00) Platelet [133-450 K/CMM] 225 K/CMM 195 K/CMM 203 K/CMM (07/11/2011 06:05:00) (07/10/2011 04:10:00) (07/09/2011 16:55:00) MPV [7.4-10.4 fL] 8.8 fL 9.1 fL 9.1 fL (07/11/2011 06:05:00) (07/10/2011 04:10:00) (07/09/2011 16:55:00) PT [12.0-14.7 seconds] 14.4 seconds (07/11/2011 06:05:00) INR [0.85-1.17] 1.12 6 (07/11/2011 06:05:00) 6Interpretive Data: RECOMMENDED RANGES FOR PROTIME INR: 2.0-3.0 for most medical and surgical thromboembolic states. 2.5-3.5 for artificial heart valves and recurrent embolism.INR SHOULD BE USED ONLY FOR PATIENTS ON STABLE ANTICOAGULANT THERAPY.
--- OUTSIDE RECORDS SUMMARY | 2017-09-02 06:01 | XMS REPORT | CCD ---
:1930 Author Organization [facility] Care Team Providers Name Role Phone JohnnyDomwinnie Chew Consulting Provider Allergies, Adverse Reactions, Alerts Substance Reaction Status PHENobarbital Active Problem List Condition Effective Dates Status Acute GI bleeding Active AF - Atrial fibrillation Active CAD - Coronary artery disease Active Chest pain Active CHF - Congestive heart failure Active HTN - Hypertension Active Medications Medication Instructions Start Date End Date Status Carafate 1 gm, 10 mL, Route: PO, 07/05/2011 07/05/2011 Completed Drug form: SUSP, ONCE, Start date: 07/05/11 14:13:00, Stop date: 07/05/11 14:13:00 Protonix 40 mg, Route: IVP, Drug 07/05/2011 07/08/2011 Discontinued form: INJ, Q12H, Start date: 07/05/11 21:00:00, Duration: 30 day, Stop date: 08/04/11 9:00:00 metoprolol 12.5 mg, 0.5 tab, Route: 07/06/2011 07/08/2011 Discontinued PO, Drug form: ERTAB, Daily, Start date: 07/06/11 9:00:00, Stop date: 08/04/11 9:00:00 Prinivil 10 mg, 1 tab, Route: PO, 07/07/2011 07/08/2011 Discontinued Drug form: TAB, Daily, Start date: 07/07/11 9:00:00, Duration: 30 day, Stop date: 08/05/11 9:00:00 phytonadione 10 mg, 1 mL, Route: 07/04/2011 07/05/2011 Completed SUB-Q, Drug form: INJ, BID, Start date: 07/04/11 11:00:00, Duration: 3 doses or times, Stop date: 07/05/11 11:00:00 octreotide 1,250 microgram 247.5 mL, Rate: 10 07/04/2011 07/05/2011 Discontinued + Sodium Chloride 0.9% IV ml/hr, Infuse over: 25 247.5 mL hr, Route: IV, Dosing Weight 67.7 kg, Total Volume: 250, Start date: 07/04/11 5:44:00, Duration: 30 day, Stop date: 08/03/11 5:43:00 pantoprazole 80 mg + 100 mL, Rate: 10 ml/hr, 07/04/2011 07/05/2011 Discontinued Sodium Chloride 0.9% IV Infuse over: 10 hr, 100 mL Route: IV, Dosing Weight 67.7 kg, Total Volume: 100, Start date: 07/04/11 5:44:00, Duration: 30 day, Stop date: 08/03/11 5:43:00 Sodium Chloride 0.9% IV 1,000 mL, Rate: 60 07/07/2011 07/08/2011 Discontinued 1,000 mL ml/hr, Infuse over: 16.7 hr, Route: IV, Dosing Weight 67.7 kg, Total Volume: 1,000, Start date: 07/07/11 8:39:00, Duration: 30 day, Stop date: 08/06/11 8:38:00 Benadryl 25 mg, 1 cap, Route: PO, 07/04/2011 07/08/2011 Discontinued Drug form: CAP, Q6H, PRN See Nurse's Notes, Start date: 07/04/11 5:43:00, Duration: 30 day, Stop date: 08/03/11 5:42:00 morphine Sulfate 2 mg, 0.4 mL, Route: IV, 07/04/2011 07/04/2011 Discontinued Drug form: INJ, Q4H, PRN Pain, Start date: 07/04/11 5:43:00, Duration: 30 day, Stop date: 08/03/11 5:42:00 Restoril 15 mg, 1 cap, Route: PO, 07/04/2011 07/08/2011 Discontinued Drug form: CAP, Bedtime, PRN Sleep, Start date: 07/04/11 5:43:00, Duration: 30 day, Stop date: 08/03/11 5:42:00 Zofran 4 mg, 2 mL, Route: IVP, 07/04/2011 07/08/2011 Discontinued Drug form: INJ, Q8H, PRN Nausea, Start date: 07/04/11 5:42:00, Duration: 30 day, Stop date: 08/03/11 5:41:00 acetaminophen-hydrocodone 1 tab, Route: PO, Drug 07/04/2011 07/08/2011 Discontinued 325 mg-5 mg oral tablet Form: TAB, Q6H, PRN Pain, Start date: 07/04/11 5:42:00, Duration: 30 day, Stop date: 08/03/11 5:41:00 Benadryl 25 mg, 1 cap, Route: PO, 07/07/2011 07/07/2011 Completed Drug form: CAP, ONCALL, Start date: 07/07/11 13:00:00, Duration: 30 day, Stop date: 08/06/11 12:59:00 Sodium Chloride 0.9% IV 1,000 mL, Rate: 125 07/04/2011 07/08/2011 Discontinued 1,000 mL ml/hr, Infuse over: 8 hr, Route: IV, Dosing Weight 67.7 kg, Total Volume: 1,000, Start date: 07/04/11 5:24:00, Duration: 30 day, Stop date: 08/03/11 5:23:00 Tylenol 650 mg, 1 supp, Route: 07/04/2011 07/08/2011 Discontinued TN, Drug form: SUPP, Q4H, PRN Pain/Fever, Start date: 07/04/11 5:42:00, Duration: 30 day, Stop date: 08/03/11 5:41:00 Tylenol 650 mg, 2 tab, Route: 07/04/2011 07/08/2011 Discontinued PO, Drug form: TAB, Q4H, PRN Pain/Fever, Start date: 07/04/11 5:42:00, Duration: 30 day, Stop date: 08/03/11 5:41:00 Sodium Chloride 0.9% IV 500 mL, Rate: bolus, 07/04/2011 07/04/2011 Completed 500 mL Route: IV, Dosing Weight 67.7 kg, Total Volume: 500, Start date: 07/04/11 5:41:00, Duration: 1 hr, Stop date: 07/04/11 6:40:00 Tylenol 650 mg, 2 tab, Route: 07/07/2011 07/07/2011 Completed PO, Drug form: TAB, ONCALL, Start date: 07/07/11 13:00:00, Duration: 30 day, Stop date: 08/06/11 12:59:00 calcium gluconate 1,000 mg, 10 mL, Route: 07/07/2011 07/07/2011 Completed IVPB, ONCE, Start date: 07/07/11 9:30:00, Stop date: 07/07/11 9:30:00 K-Dur 20 40 mEq, 2 tab, Route: 07/07/2011 07/07/2011 Completed PO, Drug form: ERTAB, ABXQ6H, Start date: 07/07/11 14:00:00, Duration: 2 doses or times, Stop date: 07/07/11 20:00:00 Lasix 20 mg, 2 mL, Route: IV, 07/04/2011 07/04/2011 Discontinued Drug form: INJ, After Transfusion, PRN See Nurse's Notes, Start date: 07/04/11 10:51:00, Stop date: 07/04/11 23:00:00 nitroglycerin 2% topical 0.5 inch, Route: TOP, 07/04/2011 07/04/2011 Completed ointment Drug form: OINT, ONCE, Start date: 07/04/11 16:35:00, Stop date: 07/04/11 16:35:00 phytonadione 10 mg, 1 mL, Route: IV, 07/07/2011 07/07/2011 Completed Drug form: INJ, ONCE, Start date: 07/07/11 14:00:00, Stop date: 07/07/11 14:00:00 hydrALAZINE 50 mg oral 100 mg, 2 tab, Route: 07/06/2011 07/07/2011 Discontinued tablet PO, Drug form: TAB, Q8H, Start date: 07/06/11 18:00:00, Duration: 30 day, Stop date: 08/05/11 16:00:00 BD Normal Saline Flush 10 mL, Route: IVP, Drug 07/04/2011 07/08/2011 Discontinued Form: INJ, PRN, PRN Line Flush, Start date: 07/04/11 11:39:00, Duration: 30 day, Stop date: 08/03/11 11:38:00 Carafate 1 gm, 10 mL, Route: PO, 07/05/2011 07/08/2011 Discontinued Drug form: SUSP, TID-Before Meals, Start date: 07/05/11 16:30:00, Duration: 30 day, Stop date: 08/04/11 11:30:00 nitroglycerin 0.4 mg 0.4 mg, 1 tab, Route: 07/04/2011 07/04/2011 Completed sublingual tablet SL, Drug form: TAB, ONCE, Start date: 07/04/11 16:35:00, Stop date: 07/04/11 16:35:00 Sodium Chloride 0.9% IV 250 mL, Route: IVPB, 07/04/2011 07/08/2011 Discontinued Start date: 07/04/11 11:38:00, Duration: 30 day, Stop date: 08/03/11 11:37:00, PRN Line Flush Neurontin 300 mg, 1 cap, Route: 07/06/2011 07/08/2011 Discontinued PO, Drug form: CAP, TID, Start date: 07/06/11 18:00:00, Duration: 30 day, Stop date: 08/05/11 17:00:00 Aldactone 25 mg, 1 tab, Route: PO, 07/07/2011 07/08/2011 Discontinued Drug form: TAB, Daily, Start date: 07/07/11 9:00:00, Duration: 30 day, Stop date: 08/05/11 9:00:00 BD Normal Saline Flush 10 mL, Route: IVP, Drug 07/04/2011 07/08/2011 Discontinued Form: INJ, Q8H, Start date: 07/04/11 16:00:00, Duration: 30 day, Stop date: 08/03/11 8:00:00 glucagon 1 mg, Route: IV, Drug 07/05/2011 07/08/2011 Discontinued form: PDR/INJ, PRN, PRN Blood Glucose Results, Start date: 07/05/11 18:38:00, Duration: 30 day, Stop date: 08/04/11 18:37:00 Dextrose 50% in Water IV 50 mL, Route: IVP, Start 07/05/2011 07/08/2011 Discontinued date: 07/05/11 18:38:00, Duration: 30 day, Stop date: 08/04/11 18:37:00, PRN Blood Glucose Results Lasix 40 mg, 4 mL, Route: IV, 07/04/2011 07/08/2011 Discontinued Drug form: INJ, ONCALL, Start date: 07/04/11 19:00:00, Duration: 2 doses or times isosorbide dinitrate 20 mg, 1 tab, Route: PO, 07/06/2011 07/08/2011 Discontinued Drug form: TAB, Q8H, Start date: 07/06/11 18:00:00, Duration: 30 day, Stop date: 08/05/11 16:00:00 Lasix 20 mg, 2 mL, Route: IV, 07/07/2011 07/07/2011 Completed Drug form: INJ, ONCALL, Start date: 07/07/11 13:00:00, Duration: 30 day, Stop date: 08/06/11 12:59:00 morphine Sulfate 2 mg, 0.4 mL, Route: IV, 07/04/2011 07/08/2011 Discontinued Drug form: INJ, Q3H, PRN Pain, Start date: 07/04/11 18:26:00, Duration: 30 day, Stop date: 08/03/11 18:25:00 Kayexalate 15 gm, 60 mL, Route: PO, 07/04/2011 07/04/2011 Completed Drug form: SUSP, ONCE, Start date: 07/04/11 11:01:00, Stop date: 07/04/11 11:01:00 Dextrose 50% in Water IV 25 mL, Route: IVP, Start 07/05/2011 07/08/2011 Discontinued date: 07/05/11 18:38:00, Duration: 30 day, Stop date: 08/04/11 18:37:00, PRN Blood Glucose Results NovoLog FlexPen 4 unit, 0.04 mL, Route: 07/05/2011 07/08/2011 Discontinued SUB-Q, Drug form: SOLN, Sliding Scale, PRN Blood Glucose Results, Start date: 07/05/11 18:38:00, Duration: 30 day, Stop date: 08/04/11 18:37:00 NovoLog FlexPen 5 unit, 0.05 mL, Route: 07/05/2011 07/08/2011 Discontinued SUB-Q, Drug form: SOLN, Sliding Scale, PRN Blood Glucose Results, Start date: 07/05/11 18:38:00, Duration: 30 day, Stop date: 08/04/11 18:37:00 NovoLog FlexPen 3 unit, 0.03 mL, Route: 07/05/2011 07/08/2011 Discontinued SUB-Q, Drug form: SOLN, Sliding Scale, PRN Blood Glucose Results, Start date: 07/05/11 18:38:00, Duration: 30 day, Stop date: 08/04/11 18:37:00 NovoLog FlexPen 2 unit, 0.02 mL, Route: 07/05/2011 07/08/2011 Discontinued SUB-Q, Drug form: SOLN, Sliding Scale, PRN Blood Glucose Results, Start date: 07/05/11 18:38:00, Duration: 30 day, Stop date: 08/04/11 18:37:00 NovoLog FlexPen 1 unit, 0.01 mL, Route: 07/05/2011 07/08/2011 Discontinued SUB-Q, Drug form: SOLN, Sliding Scale, PRN Blood Glucose Results, Start date: 07/05/11 18:38:00, Duration: 30 day, Stop date: 08/04/11 18:37:00 Dextrose 50% in Water IV 50 mL, Route: IVP, Start 07/04/2011 07/05/2011 Discontinued date: 07/04/11 23:20:00, Duration: 30 day, Stop date: 08/03/11 23:19:00, PRN Blood Glucose Results NovoLog FlexPen 8 unit, 0.08 mL, Route: 07/04/2011 07/05/2011 Discontinued SUB-Q, Drug form: SOLN, Sliding Scale, PRN Blood Glucose Results, Start date: 07/04/11 23:20:00, Duration: 30 day, Stop date: 08/03/11 23:19:00 NovoLog FlexPen 10 unit, 0.1 mL, Route: 07/04/2011 07/05/2011 Discontinued SUB-Q, Drug form: SOLN, Sliding Scale, PRN Blood Glucose Results, Start date: 07/04/11 23:20:00, Duration: 30 day, Stop date: 08/03/11 23:19:00 glucagon 1 mg, Route: IV, Drug 07/04/2011 07/05/2011 Discontinued form: PDR/INJ, PRN, PRN Blood Glucose Results, Start date: 07/04/11 23:20:00, Duration: 30 day, Stop date: 08/03/11 23:19:00 NovoLog FlexPen 7 unit, 0.07 mL, Route: 07/04/2011 07/05/2011 Discontinued SUB-Q, Drug form: SOLN, Sliding Scale, PRN Blood Glucose Results, Start date: 07/04/11 23:20:00, Duration: 30 day, Stop date: 08/03/11 23:19:00 NovoLog FlexPen 6 unit, 0.06 mL, Route: 07/04/2011 07/05/2011 Discontinued SUB-Q, Drug form: SOLN, Sliding Scale, PRN Blood Glucose Results, Start date: 07/04/11 23:20:00, Duration: 30 day, Stop date: 08/03/11 23:19:00 NovoLog FlexPen 5 unit, 0.05 mL, Route: 07/04/2011 07/05/2011 Discontinued SUB-Q, Drug form: SOLN, Sliding Scale, PRN Blood Glucose Results, Start date: 07/04/11 23:20:00, Duration: 30 day, Stop date: 08/03/11 23:19:00 Zocor 20 mg, 1 tab, Route: PO, 07/06/2011 07/08/2011 Discontinued Drug form: TAB, Bedtime, Start date: 07/06/11 21:00:00, Duration: 30 day, Stop date: 08/04/11 21:00:00 Vital Signs Most recent to oldest 1 2 3 [Reference Range]: Height 160.02 cm (07/04/2011 04:05:00) Current Weight 66.273 kg 67.273 kg (07/08/2011 06:17:00) (07/07/2011 05:36:00) Temperature Oral 98.2 DegF 98.2 DegF 98.1 DegF [96.4-99.1 DegF] (07/08/2011 08:10:00) (07/08/2011 08:00:00) (07/08/2011 05: 40:00) Systolic Blood Pressure 128 mmHg 128 mmHg 126 mmHg [90-140 mmHg] (07/08/2011 08:10:00) (07/08/2011 08:00:00) (07/08/2011 05:40: 00) Diastolic Blood Pressure 69 mmHg 69 mmHg 64 mmHg [60-90 mmHg] (07/08/2011 08:10:00) (07/08/2011 08:00:00) (07/08/2011 05:40: 00) Respiratory Rate [14-20 18 BRMIN 20 BRMIN 18 BRMIN BRMIN] (07/08/2011 08:10:00) (07/08/2011 08:00:00) (07/08/2011 05:40:00) Peripheral Pulse Rate 61 bpm 61 bpm 64 bpm [60-100 bpm] (07/08/2011 08:10:00) (07/08/2011 08:00:00) (07/08/2011 05:40: 00) Weight 67.700 kg (07/04/2011 04:05:00) Results BACTERIAL - SEROLOGY Most recent to [Reference Range]: 1 2 3 MRSA by PCR Negative 1 (07/04/2011 20:30:00) 1Interpretive Data: INTERPRETATION: Negative......No MRSA DNA detected by PCR Positive......MRSA DNA detected by PCRASSAY LIMITATIONS:This is a screening test for colonization by MRSA. A positivetest result indicates the patient is colonized by MRSA, but does not necessarily mean that an infection is present or that treatment is necessary. Likewise, a negative test does not exclude colonization or infection. Patients should be evaluatedclinically for symptoms and signs of infection before making therapeutic decisions. Routine decolonization is discouraged and should only be considered forselect patients after consultation with an infectious diseases specialist.BEDSIDE GLUCOSE TESTING Most recent to 1 2 3 [Reference Range]: Gluc POC Lifscn [70-99 114 mg/dL 2 139 mg/dL 3 123 mg/dL 4 mg/dL] *HI* *HI* *HI* (07/08/2011 07:06:00) (07/07/2011 21:11:00) (07/07/2011 16:02:00) Comment1 Notify RN/MD Assess Patient Notify RN/MD *NA* *NA* *NA* (07/08/2011 07:06:00) (07/07/2011 21:11:00) (07/07/2011 16:02:00) 2Interpretive Data: Upper Reportable Limit: 200 mg/dL.3Interpretive Data: Upper Reportable Limit: 200 mg/dL.4Interpretive Data: Upper Reportable Limit: 200 mg/dL.BLOOD BANK RESULTS Most recent to oldest 1 2 3 [Reference Range]: ABO/Rh B POS *Unknown* (07/04/2011 05:20:00) Antibody Scrn Negative (07/04/2011 05:20:00) TRXN Path Interp Product: Fresh Frozen Plasma_. Unit #: [id number]: [facility] medical record reviewed. Signs and symptoms most consisten with nonspecific reaction to the transfusion event. No evidence of a hemolytic transfusion reaction.Pathologist: Colby Hedrick, # [id number] completed "Investigation of transfusion reaction" form. *NA* (07/04/2011 15:15:00) FFP product Product available Product available (07/07/2011 11:01:00) (07/04/2011 09:38:00) RBC product Product available Product available Product available (07/07/2011 10:27:00) (07/05/2011 03:00:00) (07/04/2011 18:14:00) Hemolysis Ck None (07/04/2011 15:15:00) CHEMISTRY Most recent to oldest 1 2 3 [Reference Range]: Sodium Lvl [135-145 mEq/L] 144 mEq/L 148 mEq/L 146 mEq/L (07/08/2011 06:00:00) *HI* *HI* (07/07/2011 05:30:00) (07/06/2011 05:30:00) Potassium Lvl [3.5-5.1 4.0 mEq/L 3.2 mEq/L 3.5 mEq/L mEq/L] (07/08/2011 06:00:00) *LOW* (07/06/2011 05:30:00) (07/07/2011 05:30:00) Chloride Lvl [95-109 mEq/L] 105 mEq/L 114 mEq/L 110 mEq/L (07/08/2011 06:00:00) *HI* *HI* (07/07/2011 05:30:00) (07/06/2011 05:30:00) CO2 [24-32 mEq/L] 31 mEq/L 27 mEq/L 28 mEq/L (07/08/2011 06:00:00) (07/07/2011 05:30:00) (07/06/2011 05:30:00) AGAP [10.0-20.0 mEq/L] 12.0 mEq/L 10.2 mEq/L 11.5 mEq/L (07/08/2011 06:00:00) (07/07/2011 05:30:00) (07/06/2011 05:30:00) Creatinine Lvl [0.5-1.4 1.0 mg/dL 0.7 mg/dL 0.9 mg/dL mg/dL] (07/08/2011 06:00:00) (07/07/2011 05:30:00) (07/06/2011 05:30:00) BUN [7-22 mg/dL] 12 mg/dL 14 mg/dL 25 mg/dL (07/08/2011 06:00:00) (07/07/2011 05:30:00) *HI* (07/06/2011 05:30:00) B/C Ratio [6-25] 28 36 60 *HI* *HI* *HI* (07/06/2011 05:30:00) (07/05/2011 04:04:00) (07/04/2011 05:20:00) Glucose Lvl [70-99 mg/dL] 105 mg/dL 5 103 mg/dL 6 128 mg/dL 7 *HI* *HI* *HI* (07/08/2011 06:00:00) (07/07/2011 05:30:00) (07/06/2011 05:30:00) Total Protein [6.4-8.4 5.8 g/dL 6.4 g/dL 5.9 g/dL g/dL] *LOW* (07/05/2011 04:04:00) *LOW* (07/06/2011 05:30:00) (07/04/2011 05:20:00) Albumin Lvl [3.5-5.0 g/dL] 3.2 g/dL 3.8 g/dL 3.3 g/dL *LOW* (07/05/2011 04:04:00) *LOW* (07/06/2011 05:30:00) (07/04/2011 05:20:00) Globulin [2.0-4.0 g/dL] 2.6 g/dL 2.6 g/dL 2.6 g/dL (07/06/2011 05:30:00) (07/05/2011 04:04:00) (07/04/2011 05:20:00) A/G Ratio [0.7-1.6] 1.2 1.5 1.3 (07/06/2011 05:30:00) (07/05/2011 04:04:00) (07/04/2011 05:20:00) Calcium Lvl [8.5-10.5 7.9 mg/dL 6.5 mg/dL 8 7.2 mg/dL mg/dL] *LOW* *CRIT* *LOW* (07/08/2011 06:00:00) (07/07/2011 05:30:00) (07/06/2011 05:30:00) Phosphorus [2.5-4.5 mg/dL] 2.3 mg/dL 2.7 mg/dL *LOW* (07/04/2011 20:45:00) (07/06/2011 05:30:00) Magnesium Lvl [1.8-2.4 1.7 mg/dL 1.8 mg/dL mg/dL] *LOW* (07/04/2011 20:45:00) (07/06/2011 05:30:00) ALT [0-65 U/L] 12 U/L 12 U/L 9 U/L (07/06/2011 05:30:00) (07/05/2011 04:04:00) (07/04/2011 05:20:00) AST [0-37 U/L] 11 U/L 11 U/L 9 U/L (07/06/2011 05:30:00) (07/05/2011 04:04:00) (07/04/2011 05:20:00) Alk Phos [39-136 U/L] 46 U/L 46 U/L 37 U/L (07/06/2011 05:30:00) (07/05/2011 04:04:00) *LOW* (07/04/2011 05:20:00) Bili Total [0.2-1.3 mg/dL] 0.9 mg/dL 1.5 mg/dL 0.3 mg/dL (07/06/2011 05:30:00) *HI* (07/04/2011 05:20:00) (07/05/2011 04:04:00) Total CK [12-191 U/L] 55 U/L 51 U/L 36 U/L (07/05/2011 04:30:00) (07/04/2011 22:29:00) (07/04/2011 15:15:00) CK MB [0.5-3.6 ng/mL] 1.1 ng/mL 1.5 ng/mL 1.1 ng/mL (07/05/2011 04:30:00) (07/04/2011 22:29:00) (07/04/2011 15:15:00) CK MB Index [0.0-2.5] 2.0 2.9 3.1 (07/05/2011 04:30:00) *HI* *HI* (07/04/2011 22:29:00) (07/04/2011 15:15:00) Troponin-I [0.00-0.40 0.26 ng/mL 0.15 ng/mL 0.04 ng/mL ng/mL] (07/05/2011 04:30:00) (07/04/2011 22:29:00) (07/04/2011 15:15:00) BNP [<=100 pg/mL] 525 pg/mL 9 *HI* (07/08/2011 06:00:00) Ca Ion mgdL [4.65-5.20 4.12 mg/dL 4.60 mg/dL mg/dL] *LOW* *LOW* (07/06/2011 05:30:00) (07/04/2011 20:45:00) Ca Ion [1.16-1.30 mMol/L] 1.03 mMol/L 1.15 mMol/L *LOW* *LOW* (07/06/2011 05:30:00) (07/04/2011 20:45:00) Ca Norm [1.16-1.30 mMol/L] 1.00 mMol/L 1.17 mMol/L *LOW* (07/04/2011 20:45:00) (07/06/2011 05:30:00) Ca Norm mgdL [4.65-5.20 4.00 mg/dL 4.68 mg/dL mg/dL] *LOW* (07/04/2011 20:45:00) (07/06/2011 05:30:00) 5Interpretive Data: Adult reference range values reflect the clinical guidelinesof the [place] [employer].6Interpretive Data: Adult reference range values reflect the clinical guidelinesof the [place] [employer].7Interpretive Data: Adult reference range values reflect the clinical guidelinesof the [place] [employer].8Result Comment: Critical Result(s) called to Melania at 07/07/2011 6:34 by [facility]. Read back OK.9Interpretive Data: Elevated results are in line with increasing severity of congestive heart failure. Minor elevations between 100 and 300 may be seen with Myocardial Ischemia, Sodium retaining drugs, and compensated/treated heart failure.HEMATOLOGY Most recent to oldest 1 2 3 [Reference Range]: WBC [3.7-10.4 K/CMM] 7.3 K/CMM 6.6 K/CMM 7.7 K/CMM (07/08/2011 06:00:00) (07/07/2011 05:30:00) (07/06/2011 05:30:00) RBC [4.20-5.40 M/CMM] 3.41 M/CMM 2.71 M/CMM 3.30 M/CMM *LOW* *LOW* *LOW* (07/08/2011 06:00:00) (07/07/2011 05:30:00) (07/06/2011 05:30:00) Hgb [12.0-16.0 g/dL] 10.6 g/dL 10.6 g/dL 11.0 g/dL *LOW* *LOW* *LOW* (07/08/2011 06:00:00) (07/07/2011 23:55:00) (07/07/2011 17:15:00) Hct [36.0-48.0 %] 31.5 % 31.3 % 32.3 % *LOW* *LOW* *LOW* (07/08/2011 06:00:00) (07/07/2011 23:55:00) (07/07/2011 17:15:00) MCV [81.0-99.0 fL] 92.3 fL 93.1 fL 92.2 fL (07/08/2011 06:00:00) (07/07/2011 05:30:00) (07/06/2011 05:30:00) MCH [27.0-31.0 pg] 31.3 pg 32.6 pg 32.2 pg *HI* *HI* *HI* (07/08/2011 06:00:00) (07/07/2011 05:30:00) (07/06/2011 05:30:00) MCHC [32.0-36.0 g/dL] 33.9 g/dL 35.0 g/dL 34.9 g/dL (07/08/2011 06:00:00) (07/07/2011 05:30:00) (07/06/2011 05:30:00) RDW [11.5-14.5 %] 16.7 % 16.3 % 16.8 % *HI* *HI* *HI* (07/08/2011 06:00:00) (07/07/2011 05:30:00) (07/06/2011 05:30:00) Platelet [133-450 K/CMM] 176 K/CMM 134 K/CMM 142 K/CMM (07/08/2011 06:00:00) (07/07/2011 05:30:00) (07/06/2011 05:30:00) MPV [7.4-10.4 fL] 8.6 fL 9.1 fL 9.0 fL (07/08/2011 06:00:00) (07/07/2011 05:30:00) (07/06/2011 05:30:00) Segs [45.0-75.0 %] 54.7 % 50.5 % 64.2 % (07/08/2011 06:00:00) (07/07/2011 05:30:00) (07/06/2011 05:30:00) Lymphocytes [20.0-40.0 %] 24.5 % 32.7 % 21.7 % (07/08/2011 06:00:00) (07/07/2011 05:30:00) (07/06/2011 05:30:00) Monocytes [2.0-12.0 %] 12.6 % 11.3 % 9.5 % *HI* (07/07/2011 05:30:00) (07/06/2011 05:30:00) (07/08/2011 06:00:00) Eosinophils [0.0-4.0 %] 7.5 % 5.0 % 4.4 % *HI* *HI* *HI* (07/08/2011 06:00:00) (07/07/2011 05:30:00) (07/06/2011 05:30:00) Basophils [0.0-1.0 %] 0.7 % 0.5 % 0.2 % (07/08/2011 06:00:00) (07/07/2011 05:30:00) (07/06/2011 05:30:00) Segs-Bands # [1.5-8.1 4.0 K/CMM 3.3 K/CMM 4.9 K/CMM K/CMM] (07/08/2011 06:00:00) (07/07/2011 05:30:00) (07/06/2011 05:30:00) Lymphocytes # [1.0-5.5 1.8 K/CMM 2.2 K/CMM 1.7 K/CMM K/CMM] (07/08/2011 06:00:00) (07/07/2011 05:30:00) (07/06/2011 05:30:00) Monocytes # [0.0-0.8 0.9 K/CMM 0.7 K/CMM 0.7 K/CMM K/CMM] *HI* (07/07/2011 05:30:00) (07/06/2011 05:30:00) (07/08/2011 06:00:00) Eosinophils # [0.0-0.5 0.5 K/CMM 0.3 K/CMM 0.3 K/CMM K/CMM] (07/08/2011 06:00:00) (07/07/2011 05:30:00) (07/06/2011 05:30:00) Basophils # [0.0-0.2 0.0 K/CMM 0.0 K/CMM 0.0 K/CMM K/CMM] (07/08/2011 06:00:00) (07/07/2011 05:30:00) (07/06/2011 05:30:00) RBC Morph Normal (07/08/2011 06:00:00) Plt Morph Normal (07/08/2011 06:00:00) PT [12.0-14.7 seconds] 14.1 seconds 16.3 seconds 17.8 seconds (07/08/2011 06:00:00) *HI* *HI* (07/06/2011 05:30:00) (07/05/2011 04:04:00) INR [0.85-1.17] 1.09 10 1.32 11 1.48 12 (07/08/2011 06:00:00) *HI* *HI* (07/06/2011 05:30:00) (07/05/2011 04:04:00) PTT [22.9-35.8 seconds] 26.5 seconds 13 27.0 seconds 14 24.7 seconds 15 (07/08/2011 06:00:00) (07/06/2011 05:30:00) (07/05/2011 04:04:00) 10Interpretive Data: RECOMMENDED RANGES FOR PROTIME INR: 2.0-3.0 for most medical and surgical thromboembolic states. 2.5-3.5 for artificial heart valves and recurrent embolism.INR SHOULD BE USED ONLY FOR PATIENTS ON STABLE ANTICOAGULANT THERAPY.11Interpretive Data: RECOMMENDED RANGES FOR PROTIME INR: 2.0-3.0 for most medical and surgical thromboembolic states. 2.5-3.5 for artificial heart valves and recurrent embolism.INR SHOULD BE USED ONLY FOR PATIENTS ON STABLE ANTICOAGULANT THERAPY.12Interpretive Data: RECOMMENDED RANGES FOR PROTIME INR: 2.0-3.0 for most medical and surgical thromboembolic states. 2.5-3.5 for artificial heart valves and recurrent embolism.INR SHOULD BE USED ONLY FOR PATIENTS ON STABLE ANTICOAGULANT THERAPY.13Interpretive Data: Heparin Therapeutic Range: 57 - 92 [id number] Data: Heparin Therapeutic Range: 57 - 92 [id number] Data: Heparin Therapeutic Range: 57 - 92 Seconds
--- OUTSIDE RECORDS SUMMARY | 2017-09-02 06:02 | XMS REPORT | CCD ---
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 Resolved CAD (coronary artery disease) Resolved CAD - Coronary artery disease Active Chest pain Active CHF - Congestive heart failure Active CVA (cerebral vascular accident) Resolved Diabetes Resolved HTN - Hypertension Active Hypertension Resolved Medications Medication Instructions Start Date End Date Status warfarin 2.5 mg, 1 tab, Route: PO, 02/05/2013 02/05/2013 Completed Drug form: TAB, ONCE, Dosing Weight 65.005, kg, Start date: 02/05/13 14:00:00, Stop date: 02/05/13 14:00:00Nurse to ensure documentation of patient education per anticoagulation policy.Avoid large intake of vitamin-K containing foods diet.(Same As: Coumadin) albumin human 5% 25 gm, 500 mL, 500 ml/hr, 01/28/2013 01/28/2013 Completed intravenous solution Route: IV, Drug Form: INJ, Dosing Weight 65.005, kg, ONCE, Start date: 01/28/13 3:44:00, Stop date: 01/28/13 3:44:00LOT#: Mfg: (Same as: Albuminar)"blood product derivative" lisinopril 5 mg oral 5 mg=1 tab, PO, Daily, # 30 01/28/2013 02/05/2013 Discontinued tablet tab, 0 Refill(s) Heparin 40 unit/kg Pharmacy To Manage, Route: 02/02/2013 02/02/2013 Deleted Bolus (Heparin Dosing IVP, PRN, Drug form: INJ, Weight) PRN, Heparin Protocol, Start date: 02/02/13 7:46:00 Stop date: 03/04/13 7:45:00, 30 day heparin additive 25,000 500 mL, Rate: 14.3 ml/hr, 02/02/2013 02/02/2013 Discontinued unit [11 unit/kg/hr] + Infuse over: 35 hr, Route: Premix Diluent Dextrose IV, Dosing Weight 65 kg, 5% 500 mL Total Volume: 500 mL, Start date: 02/02/13 7:46:00, Duration: 30 day, Stop date: 03/04/13 7:45:00 Heparin 80 unit/kg Pharmacy To Manage, Route: 02/02/2013 02/02/2013 Deleted Bolus (Heparin Dosing IVP, PRN, Drug form: INJ, Weight) PRN, Heparin Protocol, Start date: 02/02/13 7:46:00 Stop date: 03/04/13 7:45:00, 30 day lisinopril 2.5 mg, 1 tab, Route: PO, 02/05/2013 02/05/2013 Discontinued Drug form: TAB, Daily, Dosing Weight 65.005, kg, Start date: 02/05/13 12:00:00, Duration: 30 day, Stop date: 03/07/13 9:00:00(Same as: Prinivil) warfarin 5 mg, 1 tab, Route: PO, 01/31/2013 01/31/2013 Completed Drug form: TAB, Q5PM, Dosing Weight 65.005, kg, Start date: 01/31/13 17:00:00, Duration: 1 doses or times, Stop date: 01/31/13 17:00:00Nurse to ensure documentation of patient education per anticoagulation policy.Avoid large intake of vitamin-K containing foods diet.(Same As: Coumadin) AMIODarone 200 mg, 1 tab, Route: PO, 01/28/2013 02/05/2013 Discontinued Drug form: TAB, Daily, Dosing Weight 65.005, kg, Start date: 01/28/13 9:00:00, Duration: 30 day, Stop date: 02/26/13 9:00:00(Same as: Cordarone) NS (Bolus) IV 500 mL 500 mL, Rate: 500 ml/hr, Infuse over: 1 hr, Route: IV, Dosing Weight 65.005 kg, Total Volume: 500, Priority: STAT, Start date: 5:08:00, Duration: 1 doses or times, Stop date: 01/28/13 6:07:00, Bolus Dose 01/28/2013 01/28/2013 Completed Bolus Dose Saline Flush 0.9% 5 ml, Route: MISC, Drug 01/26/2013 02/05/2013 Discontinued Form: INJ, Dosing Weight 66, kg, PRN, PRN Line Flush, Start date: 01/26/13 13:40:00, Duration: 30 day, Stop date: 02/25/13 13:39:00(Same as: BD Posiflush) Saline Flush 0.9% 5 ml, Route: MISC, Drug 01/26/2013 02/05/2013 Discontinued Form: INJ, Dosing Weight 66, kg, Q12H, Start date: 01/26/13 21:00:00, Duration: 30 day, Stop date: 02/25/13 9:00:00(Same as: BD Posiflush) aspirin 81 mg tablet, 81 mg, 1 tab, Route: PO, 01/26/2013 01/31/2013 Discontinued enteric coated Drug form: ECTAB, Daily, Dosing Weight 66, kg, Start date: 01/26/13 15:00:00, Duration: 30 day, Stop date: 02/25/13 9:00:00Do not crush or chew.(Same As: Ecotrin) heparin 5,000 unit, 1 mL, Route: 01/26/2013 01/28/2013 Discontinued SUB-Q, Drug form: INJ, Q8H, Dosing Weight 66, kg, Start date: 01/26/13 16:00:00, Duration: 30 day, Stop date: 02/25/13 8:00:00porcine heparin Lipitor 80 mg, 1 tab, Route: PO, 01/26/2013 02/05/2013 Discontinued Drug form: TAB, QPM, Dosing Weight 66, kg, Start date: 01/26/13 17:00:00, Duration: 30 day, Stop date: 02/24/13 17:00:00Same as Lipitor warfarin 5 mg, 1 tab, Route: PO, 01/30/2013 01/30/2013 Completed Drug form: TAB, Q5PM, Dosing Weight 65.005, kg, Start date: 01/30/13 17:00:00, Duration: 1 doses or times, Stop date: 01/30/13 17:00:00Nurse to ensure documentation of patient education per anticoagulation policy.Avoid large intake of vitamin-K containing foods diet.(Same As: Coumadin) Troy 5/325 oral tablet 1 tab, Route: PO, Drug 02/02/2013 02/05/2013 Discontinued Form: TAB, Dosing Weight 65.005, kg, Q6H, PRN Pain, Start date: 02/02/13 16:17:00, Duration: 30 day, Stop date: 03/04/13 16:16:00(Same as: Troy 325/5) Do not exceed 4gm/day of acetaminophen. Tylenol 650 mg, 2 tab, Route: PO, 02/02/2013 02/05/2013 Discontinued Drug form: TAB, Q4H, Dosing Weight 65.005, kg, PRN Pain, Start date: 02/02/13 16:17:00, Duration: 30 day, Stop date: 03/04/13 16:16:00Do not exceed 4 gm/day. (Same as: Tylenol) heparin additive 25,000 500 mL, Rate: 16.69 ml/hr, 01/28/2013 02/02/2013 Discontinued unit [14 unit/kg/hr] + Infuse over: 30 hr, Route: Premix Diluent Dextrose IV, Dosing Weight 59.62 kg, 5% 500 mL Total Volume: 500 mL, Start date: 01/28/13 15:25:00, Duration: 30 day, Stop date: 02/27/13 15:24:00 Artificial Tears 1 drp, Route: Each Affected 01/26/2013 02/05/2013 Discontinued Eye, TID, Drug form: SOLN, Start date: 01/26/13 17:00:00, Duration: 30 day, Stop date: 02/25/13 13:00:00 Lasix 20 mg, 1 tab, Route: PO, 02/02/2013 02/02/2013 Completed Drug form: TAB, ONCE, Dosing Weight 65.005, kg, Priority: NOW, Start date: 02/02/13 18:50:00, Stop date: 02/02/13 18:50:00(Same as: Lasix) May cause GI upset. Give with food or milk. normal saline 0.9% IV 1,000 mL, Rate: 75 ml/hr, 01/26/2013 02/02/2013 Discontinued 1000 mL Infuse over: 13.3 hr, Route: IV, Dosing Weight 65.005 kg, Total Volume: 1,000, Start date: 01/26/13 16:26:00, Duration: 30 day, Stop date: 02/25/13 16:25:00 insulin regular 100 7 unit, 0.07 mL, Route: 01/28/2013 02/05/2013 Discontinued units/mL human SUB-Q, Drug form: SOLN, recombinant PRN, Dosing Weight 65.005, kg, PRN Abnormal Lab Result, Start date: 01/28/13 5:06:00, Duration: 30 day, Stop date: 02/27/13 5:05:00(Same as: Humulin R) Roll in palms of hands gently; Do not shake vigorously. "single patient use only"(Restricted to patients requiring a dose > 60 units) Stable for 28 days at room temperatureExpires in days from Date insulin regular 100 5 unit, 0.05 mL, Route: 01/28/2013 02/05/2013 Discontinued units/mL human SUB-Q, Drug form: SOLN, recombinant PRN, Dosing Weight 65.005, kg, PRN Abnormal Lab Result, Start date: 01/28/13 5:06:00, Duration: 30 day, Stop date: 02/27/13 5:05:00(Same as: Humulin R) Roll in palms of hands gently; Do not shake vigorously. "single patient use only"(Restricted to patients requiring a dose > 60 units) Stable for 28 days at room temperatureExpires in days from Date insulin regular 100 3 unit, 0.03 mL, Route: 01/28/2013 02/05/2013 Discontinued units/mL human SUB-Q, Drug form: SOLN, recombinant PRN, Dosing Weight 65.005, kg, PRN Abnormal Lab Result, Start date: 01/28/13 5:06:00, Duration: 30 day, Stop date: 02/27/13 5:05:00(Same as: Humulin R) Roll in palms of hands gently; Do not shake vigorously. "single patient use only"(Restricted to patients requiring a dose > 60 units) Stable for 28 days at room temperatureExpires in days from Date Dextrose 50% Syringe 25 gm, 50 mL, Route: IVP, 01/28/2013 02/05/2013 Discontinued Drug Form: INJ, Dosing Weight 65.005, kg, PRN, PRN Abnormal Lab Result, Start date: 01/28/13 5:06:00, Duration: 30 day, Stop date: 02/27/13 5:05:00 Dextrose 50% Syringe 12.5 gm, 25 mL, Route: IVP, 01/28/2013 02/05/2013 Discontinued Drug Form: INJ, Dosing Weight 65.005, kg, PRN, PRN Abnormal Lab Result, Start date: 01/28/13 5:06:00, Duration: 30 day, Stop date: 02/27/13 5:05:00 Dextrose 50% Syringe 6.25 gm, 12.5 mL, Route: 01/28/2013 02/05/2013 Discontinued IVP, Drug Form: INJ, Dosing Weight 65.005, kg, PRN, PRN Abnormal Lab Result, Start date: 01/28/13 5:06:00, Duration: 30 day, Stop date: 02/27/13 5:05:00 warfarin 5 mg, 1 tab, Route: PO, 02/01/2013 02/01/2013 Completed Drug form: TAB, Q5PM, Dosing Weight 65.005, kg, Start date: 02/01/13 17:00:00, Duration: 1 doses or times, Stop date: 02/01/13 17:00:00Nurse to ensure documentation of patient education per anticoagulation policy.Avoid large intake of vitamin-K containing foods diet.(Same As: Coumadin) Aspirin Low Dose 81 mg 81 mg=1 tab, PO, Daily, 0 01/29/2013 02/05/2013 Discontinued oral tablet Refill(s) gabapentin 300 mg oral 300 mg=1 cap, PO, TID, # 90 01/28/2013 Ordered capsule cap, 0 Refill(s) NS (Bolus) IV 500 mL 500 mL, Rate: 500 ml/hr, Infuse over: 1 hr, Route: IV, Dosing Weight 65.005 kg, Total Volume: 500, Priority: STAT, Start date: 0:45:00, Duration: 1 doses or times, Stop date: 01/28/13 1:44:00, Bolus Dose 01/28/2013 01/28/2013 Completed Bolus Dose warfarin 2 mg oral 2 mg=1 tab, PO, Daily, # 30 02/05/2013 Ordered tablet tab, 0 Refill(s), other docusate 100 mg, 10 mL, Route: PO, 01/26/2013 02/05/2013 Discontinued Drug form: LIQ, Q12H, Start date: 01/26/13 21:30:00, Duration: 30 day, Stop date: 02/25/13 21:00:00(Same as: Colace) docusate sodium 150 100 mg=10 mL, PO, Q12H, # 02/05/2013 Ordered mg/15 mL oral liquid 30 mL, 0 Refill(s), other DuoNeb inhalation 3 mL, INHALATION, RTID, # 02/05/2013 Ordered solution 90 mL, 0 Refill(s), other atorvastatin 80 mg oral 80 mg=1 tab, PO, QPM, # 30 02/05/2013 Ordered tablet tab, 0 Refill(s), other Omnipaque 350mg/ml 85 mL, Route: IVP, Drug Form: SOLN, Dosing Weight 65.005, kg, ONCALL, STAT, Start date: 01/26/13 19:56:00, Duration: 1 doses or times, Dose=2.2ml/kg, Max [id number] -- "To be infused by Radiology Staff ONLY" 01/2601/26/2013 Completed Dose=2.2ml/kg, Max dttu=013ms -- "To be infused by Radiology Staff ONLY" DuoNeb inhalation 3 mL, Route: INHALATION, 02/02/2013 02/05/2013 Discontinued solution Drug Form: SOLN, Dosing Weight 65.005, kg, RTID, Start date: 02/02/13 14:00:00, Duration: 30 day, Stop date: 03/04/13 8:00:00(Same as: Duoneb) DuoNeb inhalation 3 ml, Route: INHALATION, 02/02/2013 02/05/2013 Discontinued solution Drug Form: SOLN, Dosing Weight 65.005, kg, PRN, PRN Respiratory Protocol, Start date: 02/02/13 9:04:00, Duration: 30 day, Stop date: 03/04/13 9:03:00(Same as: Duoneb) warfarin 2.5 mg, 1 tab, Route: PO, 02/04/2013 02/04/2013 Completed Drug form: TAB, Q5PM, Dosing Weight 65.005, kg, Start date: 02/04/13 17:00:00, Duration: 1 doses or times, Stop date: 02/04/13 17:00:00Nurse to ensure documentation of patient education per anticoagulation policy.Avoid large intake of vitamin-K containing foods diet.(Same As: Coumadin) acetaminophen 325 mg 650 mg=2 tab, PO, Q4H, 02/05/2013 Ordered oral tablet Pain, # 30 tab, 0 Refill(s), other AMIODarone 200 mg oral 200 mg=1 tab, PO, Daily, # 02/05/2013 Ordered tablet 30 tab, 0 Refill(s), other Versed 2 mg, 2 mL, Route: IVP, 01/26/2013 01/26/2013 Completed Drug form: INJ, ONCE, Dosing Weight 65.005, kg, Start date: 01/26/13 19:17:00, Stop date: 01/26/13 19:17:00, aggitation in MRi(Same as: Versed) magnesium sulfate 2 gm, 50 mL, Route: IVPB, 01/28/2013 01/28/2013 Completed Drug form: INJ, ONCE, Start date: 01/28/13 7:00:00, Stop date: 01/28/13 7:00:00 ibuprofen 600 mg, 1 tab, Route: PO, 01/27/2013 02/05/2013 Discontinued Drug form: TAB, Q6H, Dosing Weight 65.005, kg, PRN Pain, Start date: 01/27/13 11:03:00, Duration: 30 day, Stop date: 02/26/13 11:02:00(Same as: Motrin)"Do Not Crush" Take with food. potassium chloride 40 mEq, 30 mL, Route: [place], 01/28/2013 01/28/2013 Completed Drug form: LIQ, ONCE, Start date: 01/28/13 7:00:00, Stop date: 01/28/13 7:00:00(Same as: Potassium Chloride) lisinopril 2.5 mg oral 2.5 mg=1 tab, PO, Daily, # 02/05/2013 Ordered tablet 30 tab, 0 Refill(s), other simvastatin 20 mg oral 20 mg=1 tab, PO, Bedtime, # 01/28/2013 02/05/2013 Discontinued tablet 30 tab, 0 Refill(s) lisinopril 5 mg, Route: PO, Drug form: 01/29/2013 01/29/2013 Canceled TAB, Daily, Dosing Weight 65.005, kg, Start date: 01/29/13 9:00:00, Duration: 30 day, Stop date: 02/27/13 9:00:00 gabapentin 300 mg oral 300 mg, 1 cap, Route: PO, 01/29/2013 02/05/2013 Discontinued capsule Drug form: CAP, TID, Dosing Weight 65.005, kg, Start date: 01/29/13 9:00:00, Duration: 30 day, Stop date: 02/27/13 17:00:00(Same as: Neurontin) AMIODarone 200 mg oral 0 Refill(s) 01/28/2013 02/05/2013 Discontinued tablet Saline Flush 0.9% 5 ml, Route: IVP, Drug 01/26/2013 02/05/2013 Discontinued Form: INJ, Dosing Weight 65.005, kg, PRN, PRN Line Flush, Start date: 01/26/13 15:45:00, Duration: 30 day, Stop date: 02/25/13 15:44:00(Same as: BD Posiflush) Saline Flush 0.9% 5 ml, Route: IVP, Drug 01/26/2013 01/26/2013 Deleted Form: INJ, Dosing Weight 65.005, kg, Q12H, Start date: 01/26/13 21:00:00, Duration: 30 day, Stop date: 02/25/13 9:00:00(Same as: BD Posiflush) docusate 100 mg, 1 cap, Route: PO, 01/26/2013 01/26/2013 Discontinued Drug form: CAP, Q12H, Dosing Weight 65.005, kg, Start date: 01/26/13 21:00:00, Duration: 30 day, Stop date: 02/25/13 9:00:00(Same as: Colace) (Do Not Crush) bisacodyl 10 mg, 1 supp, Route: [place], 01/26/2013 02/05/2013 Discontinued Drug form: SUPP, Daily, Dosing Weight 65.005, kg, PRN Other -See Comment, Start date: 01/26/13 15:45:00, Duration: 30 day, Stop date: 02/25/13 15:44:00(Same As: Dulcolax, Bisco-Lax) Omnipaque 350mg/ml 85 mL, Route: IVP, Drug Form: SOLN, Dosing Weight 65.005, kg, ONCALL, STAT, Start date: 01/26/13 17:39:00, Duration: 1 doses or times, Dose=2.2ml/kg, Max [id number] -- "To be infused by Radiology Staff ONLY" 01/2601/26/2013 Discontinued Dose=2.2ml/kg, Max [id number] -- "To be infused by Radiology Staff ONLY" labetalol 10 mg, 2 mL, Route: IVP, 01/26/2013 02/05/2013 Discontinued Drug form: INJ, Q15Min, Dosing Weight 65.005, kg, PRN Hypertension, Start date: 01/26/13 16:21:00, Duration: 30 day, Stop date: 02/25/13 16:20:00 Vital Signs Most recent to oldest 1 2 3 [Reference Range]: Height 162.56 cm 170.18 cm (01/26/2013 13:58:00) (01/26/2013 13:38:00) Current Weight 70.002 kg 67.008 kg (01/30/2013 05:00:00) (01/28/2013 05:14:00) Temperature Oral 98.6 DegF 98.6 DegF 96.3 DegF [96.4-99.1 DegF] (02/06/2013 12:54:00) (02/06/2013 07:49:00) *LOW* (02/05/2013 11:32:00) Systolic Blood Pressure 131 mmHg 134 mmHg 106 mmHg [90-140 mmHg] (02/06/2013 12:54:00) (02/06/2013 07:49:00) (02/05/2013 11:32: 00) Diastolic Blood Pressure 85 mmHg 81 mmHg 44 mmHg [60-90 mmHg] (02/06/2013 12:54:00) (02/06/2013 07:49:00) *LOW* (02/05/2013 11:32:00) Respiratory Rate [14-20 20 BRMIN 20 BRMIN 17 BRMIN BRMIN] (02/06/2013 12:54:00) (02/06/2013 07:49:00) (02/05/2013 11:32:00) Peripheral Pulse Rate 98 bpm 85 bpm 70 bpm [60-100 bpm] (02/06/2013 12:54:00) (02/06/2013 07:49:00) (02/05/2013 11:32: 00) Weight 65.005 kg 66 kg (01/26/2013 13:58:00) (01/26/2013 13:38:00) Results BACTERIAL - SEROLOGY Most recent to oldest [Reference Range]: 1 2 3 MRSA by PCR Negative 1 (01/26/2013 15:15:00) 1Interpretive Data: Interpretive Data: The [employer] Light[employer] MRSA assay is a qualitative test for thedirect detection of nasal colonization with methicillin- resistant Staphylococcus aureus (MRSA) to aid in the prevention and control of MRSA infections in healthcare settings. A positive result does notindicate an infection or require treatment. A negative result does not exclude colonization or infection. The polymerase chain reaction (PCR) assay detects a proprietary sequence indicative of the integration of the SCCmec cassette into the Staphylococcus aureus chromosome, indicating the presence of MRSA DNA. The assay utilizes FDA cleared IVD reagents. Performance characteristics have been verified by the [facility] within the [facility]. The [facility] is authorized under the Clinical Laboratory Improvement Amendment of 1988 (CLIA-88) to performhigh complexity testing.BEDSIDE GLUCOSE TESTING Most recent to oldest 1 2 3 [Reference Range]: Glucose POC [70-99 161 mg/dL 2 114 mg/dL 3 94 mg/dL 4 mg/dL] *HI* *HI* (02/04/2013 21:43:00) (02/05/2013 11:13:00) (02/05/2013 06:06:00) Gluc POC Comment 1 Notified RN/MD Notified RN/MD Notified RN/MD *NA* *NA* *NA* (02/01/2013 06:02:00) (01/28/2013 19:36:00) (01/28/2013 07:45:00) 2Interpretive Data: Upper Reportable Limit: 200 mg/dL.3Interpretive Data: Upper Reportable Limit: 200 mg/dL.4Interpretive Data: Upper Reportable Limit: 200 mg/dL.URINALYSIS Most recent to oldest [Reference 1 2 3 Range]: UA Turbidity [Clear] Clear Clear (02/04/2013 14:11:01) (01/27/2013 01:13:00) UA Color [Yellow] Yellow Yellow *NA* *NA* (02/04/2013 14:11:01) (01/27/2013 01:13:00) UA pH [5.0-8.0] 5.5 6.5 (02/04/2013 14:11:01) (01/27/2013 01:13:00) UA Spec Grav [<=1.030] 1.012 1.037 (02/04/2013 14:11:01) *HI* (01/27/2013 01:13:00) UA Glucose [Negative mg/dL] Negative mg/dL Negative mg/dL *NA* *NA* (02/04/2013 14:11:01) (01/27/2013 01:13:00) UA Blood [Negative] Negative Negative (02/04/2013 14:11:01) (01/27/2013 01:13:00) UA Ketones [Negative mg/dL] Negative mg/dL 10 mg/dL *NA* *ABN* (02/04/2013 14:11:01) (01/27/2013 01:13:00) UA Protein [Negative mg/dL] Negative mg/dL Negative mg/dL (02/04/2013 14:11:01) (01/27/2013 01:13:00) UA Urobilinogen [0.1-1.0 mg/dL] <=1.0 mg/dL <=1.0 mg/dL *NA* *NA* (02/04/2013 14:11:01) (01/27/2013 01:13:00) UA Bili [Negative] Negative Negative *NA* *NA* (02/04/2013 14:11:01) (01/27/2013 01:13:00) UA Leuk Est [Negative] Negative Negative (02/04/2013 14:11:01) (01/27/2013 01:13:00) UA Nitrite [Negative] Negative Negative (02/04/2013 14:11:01) (01/27/2013 01:13:00) UA WBC [0-5 /HPF] 1 /HPF 1 /HPF (02/04/2013 14:11:01) (01/27/2013 01:13:00) UA RBC [0-2 /HPF] <1 /HPF (02/04/2013 14:11:01) UA Bacteria [None Seen /HPF] Occasional /HPF *NA* (02/04/2013 14:11:01) UA Sq Epi None Seen *NA* (02/04/2013 14:11:01) UA Sq Epi [Few /LPF] Moderate /LPF *ABN* (01/27/2013 01:13:00) UA Hyal Cast [0-2 /LPF] 1 /LPF (02/04/2013 14:11:01) UA Mucus [None Seen /LPF] Few /LPF Few /LPF *NA* *NA* (02/04/2013 14:11:01) (01/27/2013 01:13:00) CHEMISTRY Most recent to oldest 1 2 3 [Reference Range]: Sodium Lvl [135-145 mEq/L] 138 mEq/L 141 mEq/L 149 mEq/L (02/05/2013 04:50:00) (02/04/2013 03:52:00) *HI* (02/03/2013 11:40:00) Potassium Lvl [3.5-5.1 4.5 mEq/L 3.8 mEq/L 4.3 mEq/L mEq/L] (02/05/2013 04:50:00) (02/04/2013 03:52:00) (02/03/2013 11:40:00) Chloride Lvl [95-109 mEq/L] 103 mEq/L 105 mEq/L 118 mEq/L (02/05/2013 04:50:00) (02/04/2013 03:52:00) *HI* (02/03/2013 11:40:00) CO2 [24-32 mEq/L] 24 mEq/L 25 mEq/L 17 mEq/L (02/05/2013 04:50:00) (02/04/2013 03:52:00) *LOW* (02/03/2013 11:40:00) AGAP [10.0-20.0 mEq/L] 15.5 mEq/L 14.8 mEq/L 18.3 mEq/L (02/05/2013 04:50:00) (02/04/2013 03:52:00) (02/03/2013 11:40:00) Creatinine Lvl [0.5-1.4 0.9 mg/dL 0.8 mg/dL 1.1 mg/dL mg/dL] (02/05/2013 04:50:00) (02/04/2013 03:52:00) (02/03/2013 11:40:00) eGFR 60 mL/min/1.73m2 5 69 mL/min/1.73m2 6 47 mL/min/1.73m2 7 *NA* *NA* *NA* (02/05/2013 04:50:00) (02/04/2013 03:52:00) (02/03/2013 11:40:00) BUN [7-22 mg/dL] 15 mg/dL 15 mg/dL 14 mg/dL (02/05/2013 04:50:00) (02/04/2013 03:52:00) (02/03/2013 11:40:00) B/C Ratio [6-25] 20 25 (01/27/2013 00:17:00) (01/26/2013 15:15:00) Glucose Lvl [70-99 mg/dL] 115 mg/dL 8 112 mg/dL 9 117 mg/dL 10 *HI* *HI* *HI* (02/05/2013 04:50:00) (02/04/2013 03:52:00) (02/03/2013 11:40:00) Total Protein [6.4-8.4 6.5 g/dL 6.7 g/dL g/dL] (01/27/2013 00:17:00) (01/26/2013 15:15:00) Albumin Lvl [3.5-5.0 g/dL] 3.0 g/dL 3.0 g/dL *LOW* *LOW* (01/27/2013 00:17:00) (01/26/2013 15:15:00) Globulin [2.0-4.0 g/dL] 3.5 g/dL 3.7 g/dL (01/27/2013 00:17:00) (01/26/2013 15:15:00) A/G Ratio [0.7-1.6] 0.9 0.8 (01/27/2013 00:17:00) (01/26/2013 15:15:00) Calcium Lvl [8.5-10.5 8.0 mg/dL 8.2 mg/dL 7.8 mg/dL mg/dL] *LOW* *LOW* *LOW* (02/05/2013 04:50:00) (02/04/2013 03:52:00) (02/03/2013 11:40:00) Phosphorus [2.5-4.5 mg/dL] 2.5 mg/dL 2.8 mg/dL (01/29/2013 02:56:44) (01/28/2013 02:45:00) Magnesium Lvl [1.8-2.4 1.8 mg/dL 1.9 mg/dL mg/dL] (01/29/2013 02:56:44) (01/28/2013 02:45:00) ALT [0-65 unit/L] 9 unit/L 10 unit/L (01/27/2013 00:17:00) (01/26/2013 15:15:00) AST [0-37 unit/L] 25 unit/L 36 unit/L (01/27/2013 00:17:00) (01/26/2013 15:15:00) Alk Phos [39-136 unit/L] 80 unit/L 79 unit/L (01/27/2013 00:17:00) (01/26/2013 15:15:00) Bili Total [0.2-1.3 mg/dL] 0.9 mg/dL 0.7 mg/dL (01/27/2013 00:17:00) (01/26/2013 15:15:00) CHD Risk [3.90-5.80] 4.00 (01/27/2013 00:17:00) Chol [<=199 mg/dL] 164 mg/dL (01/27/2013 00:17:00) Trig [<=149 mg/dL] 120 mg/dL (01/27/2013 00:17:00) HDL [>=61 mg/dL] 41 mg/dL *LOW* (01/27/2013 00:17:00) LDL (Calculated) [<=99 99 mg/dL mg/dL] (01/27/2013 00:17:00) Hgb A1C [<=5.6 %] 4.8 % (01/26/2013 15:15:00) Vitamin B12 Lvl [254-1320 501 pg/mL pg/mL] (01/27/2013 12:16:00) Folate Lvl [>=3.0 ng/mL] 31.1 ng/mL 31.5 ng/mL (02/04/2013 03:52:00) (01/27/2013 12:16:00) Ca Ion WB [1.05-1.25 1.06 mMol/L 1.08 mMol/L mMol/L] (01/29/2013 02:56:44) (01/28/2013 02:45:00) Ca Norm WB [1.05-1.25 1.05 mMol/L 1.07 mMol/L mMol/L] (01/29/2013 02:56:44) (01/28/2013 02:45:00) pH Art [7.35-7.45] 7.45 (02/02/2013 18:22:00) pCO2 Art [35-45 mmHg] 30 mmHg 11 *CRIT* (02/02/2013 18:22:00) pO2 Art [80-100 mmHg] 94 mmHg (02/02/2013 18:22:00) HCO3 Art [22-26 mMol/L] 21 mMol/L *LOW* (02/02/2013 18:22:00) BE Art [-2-2 mMol/L] -2 mMol/L (02/02/2013 18:22:00) O2 Sat Art [95.0-100.0 %] 98.0 % (02/02/2013 18:22:00) 5Result Comment: The eGFR is calculated using the CKD-EPI formula. In most young , healthy individualsthe eGFR will be >90 mL/min/1.73m2. The eGFR declines with age. An eGFR of 60-89 may be normal in some populations, particularly the elderly, for whom the CKD-EPI formula has not been extensively validated. Use of the eGFR is not recommended in the following populations: Individuals with unstable creatinine concentrations, including patients and those with serious co-morbid conditions. Patients with extremes in muscle mass or diet. The data above are obtained from the [employer] ( [employer]) which additionally recommends that when the eGFR is used in patients with extremes of body mass index for purposesof drug dosing, the eGFR should be multiplied by the estimated BMI.6Result Comment: The eGFR is calculated using the CKD-EPI formula. In most young, healthy individualsthe eGFR will be >90 mL/ min/1.73m2. The eGFR declines with age. An eGFR of 60-89 may be normal in some populations, particularly the elderly, for whom the CKD-EPI formula has not been extensively validated. Use of the eGFR is not recommended in the following populations: Individuals with unstable creatinine concentrations, including patients and those with serious co-morbid conditions. Patients with extremes in muscle mass or diet. The data above are obtained from the [employer] ( [employer]) which additionally recommends that when the eGFR is used in patients with extremes of body mass index for purposesof drug dosing, the eGFR should be multiplied by the estimated BMI.7Result Comment: The eGFR is calculated using the CKD-EPI formula. In most young, healthy individualsthe eGFR will be >90 mL/ min/1.73m2. The eGFR declines with age. An eGFR of 60-89 may be normal in some populations, particularly the elderly, for whom the CKD-EPI formula has not been extensively validated. Use of the eGFR is not recommended in the following populations: Individuals with unstable creatinine concentrations, including patients and those with serious co-morbid conditions. Patients with extremes in muscle mass or diet. The data above are obtained from the [employer] ( [employer]) which additionally recommends that when the eGFR is used in patients with extremes of body mass index for purposesof drug dosing, the eGFR should be multiplied by the estimated BMI.8Interpretive Data: Adult reference range values reflect the clinical guidelines of the [place] [employer].9Interpretive Data: Adult reference range values reflect the clinical guidelines of the [place] [employer].10Interpretive Data: Adult reference range values reflect the clinical guidelines of the [place] [employer].11Result Comment: CRITICAL RESULT CALLED TO AHYDEN WATTS AT 02/02/2013 18:26 BY [facility]. READ BACK OK. TEST PERFORMED AT 17.10 P.M. RESULT COULD NOT BE RELEASED DUE TO COMPUTERS DOWN.HEMATOLOGY Most recent to oldest 1 2 3 [Reference Range]: WBC [3.7-10.4 K/CMM] 10.5 K/CMM 12.0 K/CMM 9.8 K/CMM *HI* *HI* (02/03/2013 02:57:00) (02/05/2013 04:50:00) (02/04/2013 03:52:00) RBC [4.20-5.40 M/CMM] 2.53 M/CMM 2.79 M/CMM 2.82 M/CMM *LOW* *LOW* *LOW* (02/05/2013 04:50:00) (02/04/2013 03:52:00) (02/03/2013 02:57:00) Hgb [12.0-16.0 g/dL] 8.6 g/dL 9.5 g/dL 9.7 g/dL *LOW* *LOW* *LOW* (02/05/2013 04:50:00) (02/04/2013 03:52:00) (02/03/2013 02:57:00) Hct [36.0-48.0 %] 26.0 % 28.5 % 31.3 % *LOW* *LOW* *LOW* (02/05/2013 04:50:00) (02/04/2013 03:52:00) (02/03/2013 02:57:00) MCV [81.0-99.0 fL] 103.1 fL 102.0 fL 111.1 fL *HI* *HI* *HI* (02/05/2013 04:50:00) (02/04/2013 03:52:00) (02/03/2013 02:57:00) MCH [27.0-31.0 pg] 34.2 pg 33.9 pg 34.3 pg *HI* *HI* *HI* (02/05/2013 04:50:00) (02/04/2013 03:52:00) (02/03/2013 02:57:00) MCHC [32.0-36.0 g/dL] 33.2 g/dL 33.2 g/dL 30.9 g/dL (02/05/2013 04:50:00) (02/04/2013 03:52:00) *LOW* (02/03/2013 02:57:00) RDW [11.5-14.5 %] 14.6 % 14.3 % 18.0 % *HI* (02/04/2013 03:52:00) *HI* (02/05/2013 04:50:00) (02/03/2013 02:57:00) Platelet [133-450 K/CMM] 407 K/CMM 424 K/CMM 475 K/CMM (02/05/2013 04:50:00) (02/04/2013 03:52:00) *HI* (02/03/2013 02:57:00) MPV [7.4-10.4 fL] 9.0 fL 9.1 fL 9.4 fL (02/05/2013 04:50:00) (02/04/2013 03:52:00) (02/03/2013 02:57:00) Segs [45.0-75.0 %] 67.0 % 66.7 % 69.8 % (02/03/2013 02:57:00) (02/01/2013 02:45:00) (01/29/2013 02:56:44) Lymphocytes [20.0-40.0 %] 13.1 % 15.2 % 16.0 % *LOW* *LOW* *LOW* (02/03/2013 02:57:00) (02/01/2013 02:45:00) (01/29/2013 02:56:44) Monocytes [2.0-12.0 %] 9.2 % 9.4 % 8.2 % (02/03/2013 02:57:00) (02/01/2013 02:45:00) (01/29/2013 02:56:44) Eosinophils [0.0-4.0 %] 9.6 % 7.6 % 5.1 % *HI* *HI* *HI* (02/03/2013 02:57:00) (02/01/2013 02:45:00) (01/29/2013 02:56:44) Basophils [0.0-1.0 %] 1.1 % 1.1 % 0.9 % *HI* *HI* (01/29/2013 02:56:44) (02/03/2013 02:57:00) (02/01/2013 02:45:00) Segs-Bands # [1.5-8.1 6.5 K/CMM 6.0 K/CMM 7.5 K/CMM K/CMM] (02/03/2013 02:57:00) (02/01/2013 02:45:00) (01/29/2013 02:56:44) Lymphocytes # [1.0-5.5 1.3 K/CMM 1.4 K/CMM 1.7 K/CMM K/CMM] (02/03/2013 02:57:00) (02/01/2013 02:45:00) (01/29/2013 02:56:44) Monocytes # [0.0-0.8 0.9 K/CMM 0.8 K/CMM 0.9 K/CMM K/CMM] *HI* (02/01/2013 02:45:00) *HI* (02/03/2013 02:57:00) (01/29/2013 02:56:44) Eosinophils # [0.0-0.5 0.9 K/CMM 0.7 K/CMM 0.5 K/CMM K/CMM] *HI* *HI* (01/29/2013 02:56:44) (02/03/2013 02:57:00) (02/01/2013 02:45:00) Basophils # [0.0-0.2 0.1 K/CMM 0.1 K/CMM 0.1 K/CMM K/CMM] (02/03/2013 02:57:00) (02/01/2013 02:45:00) (01/29/2013 02:56:44) Macrocyte [None Seen] 3+ 1+ 1+ *NA* *ABN* *ABN* (02/03/2013 02:57:00) (02/01/2013 02:45:00) (01/29/2013 02:56:44) PT [12.0-14.7 seconds] 28.3 seconds 27.5 seconds 33.2 seconds *HI* *HI* *HI* (02/05/2013 04:50:00) (02/04/2013 13:39:17) (02/03/2013 11:40:00) INR [0.85-1.17] 2.72 12 2.62 13 3.35 14 *HI* *HI* *HI* (02/05/2013 04:50:00) (02/04/2013 13:39:17) (02/03/2013 11:40:00) PTT [22.9-35.8 seconds] 64.3 seconds 15 52.7 seconds 16 146.0 seconds 17, 18 *HI* *HI* *CRIT* (02/04/2013 13:39:17) (02/02/2013 11:07:50) (02/02/2013 02:24:00) 12Interpretive Data: RECOMMENDED RANGES FOR PROTIME INR: 2.0-3.0 for most medical and surgical thromboembolic states. 2.5-3.5 for artificial heart valves and recurrent embolism. INR SHOULD BE USED ONLY FOR PATIENTS ON STABLE ANTICOAGULANT THERAPY.13Interpretive Data: RECOMMENDED RANGES FOR PROTIME INR: 2.0-3.0 for most medical and surgical thromboembolic states. 2.5-3.5 for artificial heart valves and recurrent embolism. INR SHOULD BE USED ONLY FOR PATIENTS ON STABLE ANTICOAGULANT THERAPY.14Interpretive Data: RECOMMENDED RANGES FOR PROTIME INR: 2.0-3.0 for most medical and surgical thromboembolic states. 2.5-3.5 for artificial heart valves and recurrent embolism. INR SHOULD BE USED ONLY FOR PATIENTS ON STABLE ANTICOAGULANT THERAPY.15Interpretive Data: Heparin Therapeutic Range: 57 - 92 [id number] Data: Heparin Therapeutic Range: 57 - 92 [id number] Comment: Critical Result(s) called to marc kothari at 02/02/2013 03:55 by_s.o Read back OK.18Interpretive Data: Heparin Therapeutic Range: 57 - 92 Seconds Microbiology Reports PROCEDURE:Culture: Blood STATUS: Order in Progress BODY SITE: Right Antecubital COLLECTED DATE/TIME: 02/04/2013 13:30:16 SOURCE: Blood FREE TEXT SOURCE: set PRELIMINARY REPORTS Preliminary ReportNo Growth At 1 Day Preliminary ReportNo Growth At 3 Days Preliminary ReportNo Growth At 2 Days PROCEDURE:Culture: Blood STATUS: Order in Progress BODY SITE: Left Hand COLLECTED DATE/TIME: 02/04/2013 04:50:43 SOURCE: Blood FREE TEXT SOURCE: PRELIMINARY REPORTS Preliminary ReportNo Growth At 1 Day Preliminary ReportNo Growth At 2 Days Procedures Procedures Date Related Diagnosis CABG x 4 - Coronary artery bypass grafts x 4 1993 Hip replacement
[2017-09-02 07:29] LABS: Absolute Lymphocytes (CBC) 2.2 K/uL (0.7-4.9); Absolute Monocytes 0.9 K/uL (0.1-1.3); Absolute Neutrophil 11.3 K/uL (1.8-8.0); Basophils % 0.2 % (0-1.3); Eosinophils % 0.2 % (0-4.4); Hematocrit 41.9 % (36.0-45.0); MCH 33.9 pg (27.0-35.0); MCV 100.7 fL (80-100); MPV 9.7 fL (7.6-11.3); Monocytes % 6.5 % (3.3-12.3); RBC Red Blood Cell Count 4.16 M/uL (3.86-4.86)
[2017-09-02 07:42] LABS: Albumin 3.5 g/dL (3.4-5.0); Bilirubin Total 0.8 mg/dL (0.2-1.0); Protein, Total 6.9 g/dL (6.4-8.2)
--- NOTE | 2017-09-02 09:09 | ER ---
Nurse's Notes [facility] Name: Anh Murray Age: 87 yrs Sex: Female : 1930 Arrival Date: 09/02/2017 Time: 05:52 Bed 4 Private MD: Eduardo Mahajan H Diagnosis: Dysphagia;Pressure ulcer of sacral region, stage 2 Presentation: 09/02 05:59 Presenting complaint: Child states: She was eating eggs and hash browns and I think she tl2 choked on it. Pt was not in distress in triage but stated that it felt like something was stuck in her throat. Denied breathing difficulty. Transition of care: patient was not received from another setting of care. Onset of symptoms was September 02, 2017 at 05:40. Risk Assessment: Do you want to hurt yourself or someone else? Patient reports no desire to harm self or others. Initial Sepsis Screen: Does the patient meet any 2 criteria? No. Patient's initial sepsis screen is negative. Does the patient have a suspected source of infection? No. Patient's initial sepsis screen is negative. Care prior to arrival: None. 05:59 Method Of Arrival: Wheelchair tl2 05:59 Acuity: BING 3 tl2 Triage Assessment: 06:01 General: Appears in no apparent distress. uncomfortable, Behavior is cooperative, tl2 appropriate for age, anxious. Pain: Denies pain. Neuro: Level of Consciousness is awake, alert, obeys commands, Oriented to person, place, time, situation. Cardiovascular: Denies chest pain. Respiratory: Reports cough that is Airway is patent Respiratory effort is even, unlabored, Respiratory pattern is regular, symmetrical. GI: No signs and/or symptoms were reported involving the gastrointestinal system. : No signs and/or symptoms were reported regarding the genitourinary system. Derm: Skin is pink, warm \T\ dry. Historical: - Allergies: 06:01 Morphine; tl2 06:01 Phenobarbital; tl2 - Home Meds: 06:01 acetaminophen 500 mg Oral tab 1 tab [Active]; atorvastatin 10 mg Oral tab 1 tab once tl2 daily [Active]; carvedilol 3.125 mg Oral tab 1 tab 2 times per day [Active]; furosemide 40 mg Oral tab 1 tab once daily [Active]; gabapentin 300 mg Oral cap 1 cap 4 times per day [Active]; levothyroxine 75 mcg tab 1 tab once daily [Active]; omeprazole 40 mg Oral cpDR 1 cap once daily [Active]; potassium chloride 20 mEq Oral TbER 1 tab once daily [Active]; warfarin 2 mg Oral tab 1 tab [Active]; 06:05 prednisone 20 mg oral tab 2 times per day [Active]; tl2 - PMHx: 06:01 Atrial Fib; CVA; High Cholesterol; Hypertension; Hypothyroidism; Myocardial infarction; tl2 - PSHx: 06:01 CABG; tl2 - Immunization history:: Adult Immunizations up to date. - Social history:: Smoking status: Patient/guardian denies using tobacco. - Ebola Screening: : No symptoms or risks identified at this time. Screenin:03 Abuse screen: Denies threats or abuse. Nutritional screening: No deficits noted. tl2 Tuberculosis screening: No symptoms or risk factors identified. Fall Risk Gait- Weak (10 pts.). Assessment: 06:05 General: see triage assessment. tl2 06:56 Derm: Decubitus located on sacrum approximately 1.5 cm to 2.5 cm is stage II is ao draining none noted. Musculoskeletal:. 07:34 Reassessment: Patient appears in no apparent distress at this time. Patient and/or ph family updated on plan of care and expected duration. Pain level reassessed. Pt resting quietly, awake and alert, oriented to person and place only, respirations even and unlabored, awaiting lab and radiology results, VSS will continue to monitor Patient denies pain at this time. 08:50 Reassessment: Patient appears in no apparent distress at this time. No changes from ph previously documented assessment. Patient and/or family updated on plan of care and expected duration. Pain level reassessed. Pt given water for PO challenge, drank w/ no difficulty, then given pudding, tolerated well w/ no choking or difficulty noted, son at bedside, awaiting d/c. 09:32 Reassessment: Patient appears in no apparent distress at this time. Pt d/c home w/ son. ph Vital Signs: 06:01 BP 138 / 78; Pulse 102; Resp 20; Temp 97.9(O); Pulse Ox 98% on R/A; Weight 49.44 kg; tl2 Height 5 ft. 3 in. (160.02 cm); Pain 0/10; 07:33 BP 108 / 68; Pulse 77; Resp 18; Pulse Ox 98% on R/A; ph 08:30 BP 102 / 74; Pulse 81; Resp 18; Pulse Ox 98% on R/A; ph 09:30 BP 101 / 62; Pulse 76; Resp 18; Pulse Ox 99% on R/A; ph 06:01 Body Mass Index 19.31 (49.44 kg, 160.02 cm) tl2 ED Course: 05:52 Patient arrived in ED. es 05:53 Eduardo Mahajan MD is Private Physician. es 06:00 Triage completed. tl2 06:01 Arm band placed on right wrist. tl2 06:03 Patient has correct armband on for positive identification. Bed in low position. Call tl2 light in reach. Side rails up X2. Adult w/ patient. 06:09 Sheron Rubin NP is PHCP. rh1 06:09 Flaquito Reed MD is Attending Physician. rh1 06:49 Patient moved to radiology via wheelchair. kw 06:54 X-ray completed. Patient tolerated procedure well. kw 06:54 Patient moved back from radiology. kw 06:54 Chest Pa And Lat (2 Views) XRAY In Process Unspecified. EDMS 07:09 Inserted saline lock: 20 gauge in left antecubital area, using aseptic technique. Blood ao collected. 07:32 Fiorella Leon, RN is Primary Nurse. ph 09:31 No provider procedures requiring assistance completed. IV discontinued, intact, ph bleeding controlled, No redness/swelling at site. Pressure dressing applied. Administered Medications: No medications were administered Outcome: 09:09 Discharge ordered by . rh1 09:31 Discharged to home via wheelchair, with family. ph 09:31 Condition: good 09:31 Discharge instructions given to family, Instructed on discharge instructions, follow up and referral plans. Demonstrated understanding of instructions, follow-up care. 09:33 Patient left the ED. ph Addendum: 09/06/2017 11:46 Addendum: Culture Results: Positive wound culture. Phone call Attempt #1 spoke with s s caregiver and notified that culture report will be faxed to PCP, Jacque Malagon NP now. Signatures: Dispatcher [employer] EDLexi Packer Shelby, RN RN ss KaseyRosita treviño Patricia, RN RN ph Sheron Rubin, WALL WORKER WALL WORKER rh1 Eliot Torres RN RN Terri Coyle RN RN tl2 Corrections: (The following items were deleted from the chart) 09/02 07:45 07:34 Reassessment: Patient appears in no apparent distress at this time. Patient ph and/or family updated on plan of care and expected duration. Pain level reassessed. Patient is alert, oriented x 3, equal unlabored respirations, skin warm/dry/pink. Pt resting quietly, awaiting lab and radiology results, VSS will continue to monitor ph 09/06 11:51 11:46 Addendum: Culture Results: Positive wound culture. ss ss
--- NOTE | 2017-09-02 09:10 | EDPHYS ---
Physician Documentation [facility] Name: Anh Murray Age: 87 yrs Sex: Female : 1930 Arrival Date: 09/02/2017 Time: 05:52 Bed 4 Private MD: Eduardo Mahajan H ED Physician Flaquito Reed HPI: 09/02 06:25 This 87 yrs old Female presents to ER via Wheelchair with complaints of rh1 Choked/Choking. 06:25 Onset: The symptoms/episode began/occurred just prior to arrival. The patient has rh1 experienced similar episodes in the past. The patient has not recently seen a physician. Pt. was eating eggs at home this morning, and choked, described as coughing and then coughed up thin streaks of mucous, did not see her spit any food out. Family reports she began to panic and breath fast, with some wheezing, and he brought her here. He denies any loss of consciousness, no color changes, she did not require the Heimlich. She is in no distress at this time, reports something feels stuck, points at her submental jaw.. Historical: - Allergies: 06:01 Morphine; tl2 06:01 Phenobarbital; tl2 - Home Meds: 06:01 acetaminophen 500 mg Oral tab 1 tab [Active]; atorvastatin 10 mg Oral tab 1 tab once tl2 daily [Active]; carvedilol 3.125 mg Oral tab 1 tab 2 times per day [Active]; furosemide 40 mg Oral tab 1 tab once daily [Active]; gabapentin 300 mg Oral cap 1 cap 4 times per day [Active]; levothyroxine 75 mcg tab 1 tab once daily [Active]; omeprazole 40 mg Oral cpDR 1 cap once daily [Active]; potassium chloride 20 mEq Oral TbER 1 tab once daily [Active]; warfarin 2 mg Oral tab 1 tab [Active]; 06:05 prednisone 20 mg oral tab 2 times per day [Active]; tl2 - PMHx: 06:01 Atrial Fib; CVA; High Cholesterol; Hypertension; Hypothyroidism; Myocardial infarction; tl2 - PSHx: 06:01 CABG; tl2 - Immunization history:: Adult Immunizations up to date. - Social history:: Smoking status: Patient/guardian denies using tobacco. - Ebola Screening: : No symptoms or risks identified at this time. ROS: 06:25 Constitutional: Negative for fever, chills, and weight loss. rh1 06:25 ENT: Negative for difficulty swallowing, difficulty handling secretions, hoarseness. 06:25 Neck: Negative for mass, pain with movement, pain at rest, swelling, tenderness. 06:25 Cardiovascular: Negative for chest pain, palpitations. 06:25 Respiratory: Positive for cough, shortness of breath, during acute episode of choking, has not been ongoing, Negative for hemoptysis. 06:25 Abdomen/GI: Negative for nausea and vomiting. 06:25 Neuro: Negative for altered mental status, loss of consciousness, seizure activity, syncope, near syncope. 06:25 All other systems are negative. Exam: 06:25 Constitutional: This is a well developed, well nourished patient who is awake, alert, rh1 and in no acute distress. Head/Face: Normocephalic, atraumatic. 06:25 Chest/axilla: Normal chest wall appearance and motion. Nontender with no deformity. No lesions are appreciated. Cardiovascular: Regular rate and rhythm with a normal S1 and S2. No gallops, murmurs, or rubs. No JVD. No pulse deficits. Respiratory: Lungs have equal breath sounds bilaterally, clear to auscultation. No rales, rhonchi or wheezes noted. No increased work of breathing. 06:25 Abdomen/GI: Soft, non-tender, with normal bowel sounds. No distension. No guarding or rebound. No evidence of tenderness throughout. Back: No spinal tenderness. No costovertebral tenderness. Full range of motion. 06:25 Eyes: Pupils: no acute changes, normal size, normal reaction to light, equal, right pupil is approximately 3 mm(s), left pupil is approximately 3 mm(s). 06:25 ENT: Mouth: is normal, (-) trismus no lip abnormalities, no mucosal abnormalities, does not follow command to extrude tongue, Voice: voice unchanged per family, good projection, no hoarseness. 06:25 Neck: External neck: swelling, is not appreciated, tenderness, is not appreciated, Trachea: is midline with no obvious abnormalities, ROM/movement: is normal, is supple, Lymph nodes: no appreciated lymphadenopathy. 06:25 Respiratory: Exam negative for respiratory distress, intercostal retractions, shortness of breath, stridor, wheezing, tachypnea. 06:25 Skin: with approx. 3 cm area of increased erythema at coccyx, with mild skin breakdown, stage 2 pressure ulcer. 06:25 Neuro: Orientation: no acute changes, per family, son reports at times she does not know her own name, other times she may know his name, but often times she does not; not oriented to time or situation, to person, Not oriented to place, time, situation, Mentation: no acute changes, per family, able to follow commands, she does follow some commands, other times does not; son reports that is part of her confusion, which is worse when she is hurting, confused, Motor: moves all fours, Sensation: is normal, no obvious gross deficits. Vital Signs: 06:01 BP 138 / 78; Pulse 102; Resp 20; Temp 97.9(O); Pulse Ox 98% on R/A; Weight 49.44 kg; tl2 Height 5 ft. 3 in. (160.02 cm); Pain 0/10; 07:33 BP 108 / 68; Pulse 77; Resp 18; Pulse Ox 98% on R/A; ph 08:30 BP 102 / 74; Pulse 81; Resp 18; Pulse Ox 98% on R/A; ph 09:30 BP 101 / 62; Pulse 76; Resp 18; Pulse Ox 99% on R/A; ph 06:01 Body Mass Index 19.31 (49.44 kg, 160.02 cm) tl2 MDM: 06:11 Patient medically screened. rh1 07:01 ED course: Her son at bedside reports she has had a swallow study in the past, thinks rh1 it may have been done here. Upon review of [employer] [facility] [employer] records no previous study found. He was unable to report what the results were. Up until approx. 2 months ago, she has been getting PT, OT, and speech therapy at home. She has had some difficulty swallowing over the past 1 month, any foods, but drinks liquids ok. He feels that she will get more confused when she is in pain from her bed sore, and then she doesn't concentrate on eating.. 09:07 Data reviewed: vital signs, nurses notes, lab test result(s), radiologic studies, I rh1 have discussed the patient's presentation/case with the attending Emergency Department Physician; and as a result, I will discharge patient. Data interpreted: Pulse oximetry: on room air is 98 %. Interpretation: normal. Counseling: I had a detailed discussion with the patient and/or guardian regarding: the historical points, exam findings, and any diagnostic results supporting the discharge/admit diagnosis, lab results, radiology results, the need for outpatient follow up, a family practitioner, to return to the emergency department if symptoms worsen or persist or if there are any questions or concerns that arise at home. ED course: Able to tolerate liquids without difficulty, tolerates soft foods without coughing, choking, without difficulty; discussed taking small bites, chewing food, ensure sitting up when eating, limit distractions while eating; discussed to follow up with PCP as planned on Monday, and may need MBS for further evaluation of dysphagia. 09/02 06:06 Order name: Wound Culture ao 09/02 06:22 Order name: CBC with Diff; Complete Time: 07:47 rh1 09/02 06:22 Order name: CMP; Complete Time: 07:44 rh1 09/02 06:22 Order name: Chest Pa And Lat (2 Views) XRAY rh1 09/02 06:22 Order name: EKG - Nurse/Tech; Complete Time: 06:55 rh1 09/02 07:44 Order name: PO challenge: water, and if no difficulties, pudding/applesauce; Complete rh1 Time: 09:19 Administered Medications: No medications were administered Disposition: 15:56 Co-signature as Attending Physician, Flaquito Reed MD I agree with the assessment and kdr plan of care. Disposition: 09/02/17 09:09 Discharged to Home. Impression: Dysphagia, Pressure ulcer of sacral region, stage 2. - Condition is Stable. - Discharge Instructions: Choking, Adult, Dysphagia, Preventing Pressure Injuries. - Medication Reconciliation Form, Thank You Letter, Antibiotic Education, Prescription Opioid Use form. - Follow up: Private Physician; When: 1 - 2 days; Reason: Recheck today's complaints, Continuance of care, Re-evaluation by your physician. Follow up: Emergency Department; When: As needed; Reason: Fever > 102 F, If symptoms return, Trouble breathing, Worsening of condition. - Problem is new. - Symptoms have improved. Signatures: Dispatcher [employer] EDFlaquito Mike MD MD kdr Hall, Patricia, RN RN ph Sheron Rubin, PILE OPERATOR PILE OPERATOR rh1 Terri Lomeli RN RN tl2 Corrections: (The following items were deleted from the chart) 07:01 06:25 Pt. was eating eggs at home this morning, and choked, described as coughing and rh1 then coughed up mucous. She spit the food out. Family reports she began to panic and breath fast, with some wheezing, and he brought her here. He denies any loss of consciousness, no color changes, she did not require the Heimlich. She is in no distress at this time, reports something feels stuck, points at her submental jaw.. rh1 07:12 06:25 Pt. was eating eggs at home this morning, and choked, described as coughing and rh1 then coughed up mucous. She spit the food out. Family reports she began to panic and breath fast, with some wheezing, and he brought her here. He denies any loss of consciousness, no color changes, she did not require the Heimlich. She is in no distress at this time, reports something feels stuck, points at her submental jaw.. rh1 07:48 06:25 Neuro: Orientation: no acute changes, per family, son reports at times she does rh1 not know her own name, other times she may know his name, but often times she does not; not oriented to time or situation, to person, Not oriented to place, time, situation, Mentation: able to follow commands, she does follow some commands, other times does not; son reports that is part of her confusion, which is worse when she is hurting, confused, Motor: moves all fours, Sensation: is normal, no obvious gross deficits, rh1 09:33 09:09 09/02/2017 09:09 Discharged to Home. Impression: Dysphagia; Pressure ulcer of ph sacral region, stage 2. Condition is Stable. Forms are Medication Reconciliation Form, Thank You Letter, Antibiotic Education, Prescription Opioid Use. Follow up: Private Physician; When: 1 - 2 days; Reason: Recheck today's complaints, Continuance of care, Re-evaluation by your physician. Follow up: Emergency Department; When: As needed; Reason: Fever > 102 F, If symptoms return, Trouble breathing, Worsening of condition. Problem is new. Symptoms have improved. rh1
[2017-09-02 09:44] VITALS: TEMP 97.9
[2017-09-02 09:48] VITALS: BP 101/62; O2SAT 99
--- NOTE | 2017-09-02 11:38 | RAD REPORT ---
EXAM DESCRIPTION: RAD - Chest Pa And Lat (2 Views) - 09/02/2017 6:55 am CLINICAL HISTORY: DYSPNEA Chest pain. COMPARISON: Chest Pa And Lat (2 Views) dated 07/21/2017; Chest Single View dated 04/27/2017; Chest Sin gle View dated 03/21/2017; Chest Single View dated 02/02/2017 FINDINGS: Prominent diffuse emphysematous pattern is present throughout the lungs. No focal infiltra te is seen. The heart is moderately enlarged in size with changes of a prior CABG. Tortuous and ather osclerotic aorta. No displaced fractures. Prominent degenerative changes present left shoulder. IMPRESSION: Advanced COPD.
--- NOTE | 2017-09-03 09:35 | EKG ---
Test Date: 2017-09-02 Test Time: 06:39:19 Weekend Caregiver: RAUL MEASUREMENT RESULTS: Intervals: Rate: 78 ND: QRSD: 92 QT: 380 QTc: 433 Preemption: P: ND: QRS: 101 T: 216 INTERPRETIVE STATEMENTS: Atrial fibrillation Rightward axis Incomplete right bundle branch block Anterior infarct, age undetermined Abnormal ECG Compared to ECG 07/21/2017 13:12:27 Right-axis deviation now present Incomplete right bundle-branch block now present Myocardial infarct finding still present Electronically Signed On 09-03-17 09:34:27 CDT by Kenney Fuchs
== END 2017-09-02 09:33 | disposition home or self-care (01) ==
LOC: ER 05:50
DX: R13.10 Dysphagia, unspecified (principal); L89.152 Pressure ulcer of sacral region, stage 2; I10 Essential (primary) hypertension; E03.9 Hypothyroidism, unspecified; I48.91 Unspecified atrial fibrillation; E78.00 Pure hypercholesterolemia, unspecified; Z79.01 Long term (current) use of anticoagulants; Z86.73 Personal history of transient ischemic attack (TIA), and cerebral infarction without residual deficits; Z88.5 Allergy status to narcotic agent; Z95.1 Presence of aortocoronary bypass graft
CPT/HCPCS: 36415; 71046; 80053; 85025; 87070; 87077; 87186; 87205; 93005; 99284

== ENCOUNTER 2017-09-08 15:03 | Inpatient (IN) | payer OTHER ==
--- OUTSIDE RECORDS SUMMARY | 2017-09-08 15:06 | XMS REPORT | CCD ---
:1930 Author Organization [facility] Care Team Providers Name Role Phone JohnnyDomwinnie [...] mg, 1 supp, Route: 07/04/2011 07/08/2011 Discontinued CA, Drug form: SUPP, Q4H, PRN Pain/Fever, Start [...] Interp Product: Fresh Frozen Plasma_. Unit #: [id number]: [facility] medical record reviewed. Signs and symptoms most consisten with nonspecific reaction to the transfusion event. No evidence of a hemolytic transfusion reaction.Pathologist: Colby Hedrick, # [id number] completed "Investigation of transfusion reaction" form. *NA* [...] range values reflect the clinical guidelinesof the [place] [employer].6Interpretive Data: Adult reference range values reflect the clinical guidelinesof the [place] [employer].7Interpretive Data: Adult reference range values reflect the clinical guidelinesof the [place] [employer].8Result Comment: Critical Result(s) called to Melania at 07/07/2011 6:34 by [facility]. Read back OK.9Interpretive Data: Elevated results [...] Data: Heparin Therapeutic Range: 57 - 92 [id number] Data: Heparin Therapeutic Range: 57 - 92 [id number] Data: Heparin Therapeutic Range: 57 - 92 Seconds
--- OUTSIDE RECORDS SUMMARY | 2017-09-08 15:06 | XMS REPORT | CCD ---
:1930 Author Organization [facility] Care Team Providers Name Role Phone Braxton [...] range values reflect the clinical guidelinesof the [place] [employer].5Interpretive Data: Adult reference range values reflect the clinical guidelinesof the [place] [employer].HEMATOLOGY Most recent to oldest 1 [...]
--- OUTSIDE RECORDS SUMMARY | 2017-09-08 15:07 | XMS REPORT | CCD ---
:1930 Author Organization [facility] Care Team Providers Name Role Phone Christie [...] of vitamin-K containing foods diet.(Same As: Coumadin) Norvell 5/325 oral tablet 1 tab, Route: PO, Drug 02/02/2013 02/05/2013 Discontinued Form: TAB, Dosing Weight 65.005, kg, Q6H, PRN Pain, Start date: 02/02/13 16:17:00, Duration: 30 day, Stop date: 03/04/13 16:16:00(Same as: Norvell 325/5) Do not exceed 4gm/day of acetaminophen. [...] Duration: 1 doses or times, Dose=2.2ml/kg, Max [id number] -- "To be infused by Radiology Staff ONLY" 01/2601/26/2013 Completed Dose=2.2ml/kg, Max [id number] -- "To be infused by Radiology Staff [...] Crush) bisacodyl 10 mg, 1 supp, Route: CA, 01/26/2013 02/05/2013 Discontinued Drug form: SUPP, Daily, Dosing Weight 65.005, kg, PRN Other -See Comment, Start date: 01/26/13 15:45:00, Duration: 30 day, Stop date: 02/25/13 15:44:00(Same As: Dulcolax, Bisco-Lax) Omnipaque 350mg/ml 85 mL, Route: IVP, Drug Form: SOLN, Dosing Weight 65.005, kg, ONCALL, STAT, Start date: 01/26/13 17:39:00, Duration: 1 doses or times, Dose=2.2ml/kg, Max [id number] -- "To be infused by Radiology Staff ONLY" 01/2601/26/2013 Discontinued Dose=2.2ml/kg, Max [id number] -- "To be infused by Radiology Staff [...] by the [facility] within the [facility]. The [facility] is authorized under [...] values reflect the clinical guidelines of the [place] [employer].9Interpretive Data: Adult reference range values reflect the clinical guidelines of the [place] [employer].10Interpretive Data: Adult reference range values reflect the clinical guidelines of the [place] [employer].11Result Comment: CRITICAL RESULT CALLED TO HAYDEN WATTS AT 02/02/2013 18:26 BY [employer]. READ BACK OK. TEST PERFORMED AT 17.10 [...] Data: Heparin Therapeutic Range: 57 - 92 [id number] Data: Heparin Therapeutic Range: 57 - 92 [id number] Comment: Critical Result(s) called to marc kothari [...]
--- NOTE | 2017-09-08 16:05 | RAD REPORT ---
EXAM DESCRIPTION: CT - Head C Spine Cap Wo Con - 09/08/2017 3:39 pm CLINICAL HISTORY: Fall, head, neck, chest and abdomen pain COMPARISON: CT head April 2017, abdomen imaging March 2017 TECHNIQUE: Axial [address] head images were obtained. Axial [address] cervical spine images were obtain ed with sagittal and coronal reconstruction images reviewed. Axial 5 mm images of the chest, abdomen and pelvis were obtained. All CT scans are performed using dose optimization technique as appropriate and may include automated exposure control or mA/KV adjustment according to patient size. FINDINGS: No intracranial hemorrhage, mass or edema. No midline shift or abnormal fluid collection. Mastoid air cells and paranasal sinuses are clear. No skull fracture. Patient has moderate atrophy a nd chronic ischemic change. There is a large area of gliosis involving much of the left frontal and p arietal lobes from a remote CVA. This is a stable pattern. Ventricles are in proportion to volume los s. Arterial calcifications are present. Cervical bodies are normal in height. No acute fracture changes identifiable. There is retrolisthesis of C5 relative to the C4 and C6 bodies. There is a very slight retrolisthesis of C6 relative to C7. No pathologic bone process seen.Significant disc space narrowing seen at C5-6 and C6-7. Moderate jose rity disc space narrowing at C4-5. There additional prominent degenerative changes around the dens an d anterior arch C1 level. Multilevel significant facet joint degenerative change present. Bilateral f oraminal stenosis present at C5-6. No facet joint alignment abnormality. There is likely spinal steno sis at C5-6.No prevertebral soft tissue thickening or paraspinal mass.Central canal detail is inheren tly limited on CT imaging. There is significant motion degradation on the chest imaging. No pneumothorax or pleural fluid collec tions seen. Patient has underlying scarring change. A few patchy alveolar opacities in the posterior mid right lung field could be pulmonary contusion, atelectasis or infiltrate. No mediastinal hemato ma. Aortic calcifications are present without thoracic aneurysm. No displaced calcifications in the a janet. Dense Coronary artery calcifications are present. Cardiomegaly is present without pericardial t hickening or effusion. No chest will mass or abnormal axillary finding. Significant left shoulder deg enerative change present. No clavicle fracture confirmed. No displaced rib fractures are seen. Nondis placed fractures are potentially masked by a motion. CT abdomen and pelvis show no injury to solid abdominal viscera. Cholecystectomy clips are present. N o biliary tree dilatation. No bowel injury or significant finding. No free air, free fluid or abnorma l stranding. No hernia, mass or bulky lymphadenopathy. No urinary bladder abnormality. Patient has degenerative change throughout the skeleton. Sternotomy wires are in place. Patient has s ignificant compression fracture deformities involving T4-T6 and T11. Findings favor chronicity. Advan mer disc and endplate degenerative change involves L1- L5. Abdominal aortic aneurysm has not change f rom prior imaging. No acute component suspected. The patient has a 5 x 3 centimeter oval soft tissue mass in the region of the right piriformis muscle between the coccyx and the ileum. There is an additional stranding in the presacral tissues. Hematom a would be favored given the fall history. An aggressive soft tissue mass is felt to be much less lik geraldine. 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 No acute int racranial finding or interval change. Prominent cervical spine degenerative change without acute finding. Central canal detail is inherentl y limited. No pneumothorax or pleural fluid collection. Motion limits the examination. Patient could have minima l pulmonary contusion or infiltrate posterior mid right lung field. No acute traumatic injury to the bowel or solid abdominal visceral. No free fluid or other emergent s urgical finding. Probable 5 x 3 centimeter hematoma in the region of the right piriformis muscle with edema or blood i n the presacral soft tissues. Correlation is needed with any trauma history to this region. A more ag gressive soft tissue mass is unlikely. Multiple thoracic compression fractures all favored to be chronic.
[2017-09-08 16:12] LABS: Absolute Lymphocytes (CBC) 0.9 K/uL (0.7-4.9); Absolute Monocytes 0.7 K/uL (0.1-1.3); Absolute Neutrophil 12.9 K/uL (1.8-8.0); Basophils % 0.1 % (0-1.3); Eosinophils % 0.2 % (0-4.4); Hematocrit 28.5 % (36.0-45.0); Lymphocytes % 6.4 % (15.3-44.8); MCH 34.2 pg (27.0-35.0); MCV 102.4 fL (80-100); Monocytes % 4.8 % (3.3-12.3); RBC Red Blood Cell Count 2.78 M/uL (3.86-4.86)
[2017-09-08 16:23] LABS: Protime INR 5.58
[2017-09-08 16:24] LABS: Potassium 4.3 mmol/L (3.5-5.1)
--- NOTE | 2017-09-08 16:48 | ER ---
Nurse's Notes [facility] Name: Anh Murray Age: 87 yrs Sex: Female : 1930 Arrival Date: 09/08/2017 Time: 15:06 Bed 19 Private MD: Unknown, Unknown Diagnosis: Weakness;Coagulation defect, unspecified;Other slipping, tripping and stumbling and falls Presentation: 09/08 15:16 Presenting complaint: Child states: night before last she fell, when i went in there tw2 she was on the floor and the wheelchair was turned over, she denies hitting her head, she has started to give up standing today, c/o left leg pain. Transition of care: patient was not received from another setting of care. Onset of symptoms was September 08, 2017. Risk Assessment: Do you want to hurt yourself or someone else? Patient reports no desire to harm self or others. Initial Sepsis Screen: Does the patient meet any 2 criteria? No. Patient's initial sepsis screen is negative. Does the patient have a suspected source of infection? No. Patient's initial sepsis screen is negative. Care prior to arrival: None. 15:16 Method Of Arrival: Wheelchair tw2 15:16 Acuity: BING 3 15:16 Mechanism of Injury: Fall. Trauma event details: Injury occurred in the county of [address] Trauma Activation: Alert Physician: ED Physician; Name: ; Notified At: ; Arrived At: Physician: General Surgeon; Name: ; Notified At: ; Arrived At: Physician: Radiology; Name: ; Notified At: ; Arrived At: Physician: Respiratory; Name: ; Notified At: ; Arrived At: Physician: Lab; Name: ; Notified At: ; Arrived At: Historical: - Allergies: 15:23 Morphine; tw 15:23 Phenobarbital; tw2 - Home Meds: 15:23 warfarin 2 mg Oral tab 1 tab [Active]; acetaminophen 500 mg Oral tab 1 tab [Active]; tw2 atorvastatin 10 mg Oral tab 1 tab once daily [Active]; carvedilol 3.125 mg Oral tab 1 tab 2 times per day [Active]; furosemide 40 mg Oral tab 1 tab once daily [Active]; gabapentin 300 mg Oral cap 1 cap 4 times per day [Active]; levothyroxine 75 mcg tab 1 tab once daily [Active]; omeprazole 40 mg Oral cpDR 1 cap once daily [Active]; potassium chloride 20 mEq Oral TbER 1 tab once daily [Active]; prednisone 20 mg Oral tab 2 times per day [Active]; - PMHx: 15:23 Atrial Fib; CVA; High Cholesterol; Hypertension; Hypothyroidism; Myocardial infarction; tw2 - 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 - Social history:: Smoking status: Patient/guardian denies using tobacco. - Immunization history: Last tetanus immunization: unknown. - Ebola Screening: : Patient denies travel to an Ebola-affected area in the 21 days before illness onset. Screenin:20 Abuse screen: Denies injuries from another. Nutritional screening: No deficits noted. tw2 Tuberculosis screening: No symptoms or risk factors identified. Fall Risk Secondary diagnosis (15 points) impaired mobility. Primary Survey: 15:19 A: Airway: patent. Breathing/Chest: Respiratory pattern: regular, Respiratory effort: tw2 spontaneous, unlabored, Breath sounds: clear, bilaterally. Chest inspection: symmetrical rise and fall of the chest. Circulation: Heart tones present. Skin temperature: warm. Disability Alert. 16:09 Reassessment Airway Airway Patent Breathing/Chest Respiratory pattern Regular tw2 Respiratory effort Spontaneous Unlabored Breath sounds Clear Chest inspection Symmetrical Circulation Heart tones Present Disability Alert. Secondary Survey: 16:10 HEENT: No deficits noted. Gastrointestinal: Abdomen is flat, Bowel sounds present in tw2 all quadrants. : No signs and/or symptoms were reported regarding the genitourinary system. Musculoskeletal: Range of motion: Parent/caregiver report the patient having weakness in "all over" pain in "all over". Assessment: 15:12 General: Appears in no apparent distress. Behavior is calm, cooperative, appropriate tw2 for age. General: Appears slender. Pain: Complains of pain in "all over". Neuro: Level of Consciousness is awake, alert, obeys commands, Oriented to person. Cardiovascular: Denies chest pain, shortness of breath, Heart tones S1 S2 Patient's skin is warm and dry. Respiratory: Airway is patent Respiratory effort is even, unlabored, Respiratory pattern is regular, symmetrical. Respiratory: Breath sounds are clear bilaterally. GI: No signs and/or symptoms were reported involving the gastrointestinal system. Abdomen is round Bowel sounds present X 4 quads. : No signs and/or symptoms were reported regarding the genitourinary system. EENT: No signs and/or symptoms were reported regarding the EENT system. Derm: No signs and/or symptoms reported regarding the dermatologic system. Derm: Skin is intact, is fragile, is thin, Skin temperature is warm. Musculoskeletal: Range of motion: intact in all extremities, Parent/caregiver report the patient having weakness in "all over". 15:17 Reassessment: provider at bedside at this time. tw2 16:07 Reassessment: Patient appears in no apparent distress at this time. No changes from tw2 previously documented assessment. Patient and/or family updated on plan of care and expected duration. Pain level reassessed. 16:23 Reassessment: CRITICAL LAB VALUE: INR 5.58, provider notified. tw2 16:55 Reassessment: Dr. Paul at bedside at this time. tw2 18:12 Reassessment: Patient appears in no apparent distress at this time. No changes from tw2 previously documented assessment. Patient and/or family updated on plan of care and expected duration. Pain level reassessed. 18:14 Reassessment: Patient appears in no apparent distress at this time. No changes from tw2 previously documented assessment. Patient and/or family updated on plan of care and expected duration. Pain level reassessed. 19:23 General: Appears in no apparent distress. Behavior is calm, cooperative. Pain: ea Complains of pain in left leg. Neuro: Level of Consciousness is awake, alert, obeys commands, Oriented to person. Cardiovascular: Heart tones S1 S2 present Patient's skin is warm and dry. Respiratory: Airway is patent Respiratory effort is even, unlabored, Respiratory pattern is regular, symmetrical, Breath sounds are clear bilaterally. GI: Abdomen is non-distended, Bowel sounds present X 4 quads. Derm: Skin is pink, warm \\T\\ dry. Musculoskeletal: Circulation, motion, and sensation intact. 20:10 Reassessment: Patient and/or family updated on plan of care and expected duration. Pain ea level reassessed. Pt alert and oriented to self. Respirations even and unlabored, chest expansions even and symmetrical. No s/s of pain or discomfort noted at this time. Awaiting room assignment. 21:33 Reassessment: Patient and/or family updated on plan of care and expected duration. Pain ea level reassessed. Pt alert and oriented to self, respirations even and unlabored chest expansions even and symmetrical. No s/s of pain or discomfort noted at this time. 21:42 Reassessment: Report given to Christa FRANCO on fourth floor. ea Vital Signs: 15:18 BP 95 / 55; Pulse 89; Resp 17; Temp 97.4(O); Pulse Ox 96% on R/A; tw2 16:07 BP 98 / 61; Pulse 88; Resp 17; Pulse Ox 95% on R/A; tw2 17:00 BP 100 / 81; Pulse 70; Resp 17; Pulse Ox 95% on R/A; tw2 18:13 BP 95 / 81; Pulse 82; Resp 16; Pulse Ox 96% on R/A; tw2 19:24 BP 99 / 59; Pulse 88; Resp 16; Pulse Ox 96% on R/A; ea 20:45 BP 106 / 68; Pulse 73; Resp 17; Temp 97.4; Pulse Ox 97% on R/A; ea 21:15 BP 107 / 64; Pulse 70; Resp 18; Temp 97.2(O); Pulse Ox 97% on R/A; ea [place] Coma Score: 15:19 Eye Response: spontaneous(4). Verbal Response: oriented(5). Motor Response: obeys tw2 commands(6). Total: 15. 19:24 Eye Response: spontaneous(4). Verbal Response: confused(4). Motor Response: obeys ea commands(6). Total: 14. 20:45 Eye Response: spontaneous(4). Verbal Response: confused(4). Motor Response: obeys ea commands(6). Total: 14. 21:15 Eye Response: spontaneous(4). Verbal Response: confused(4). Motor Response: obeys ea commands(6). Total: 14. Trauma Score (Adult): 15:19 Eye Response: spontaneous(1); Verbal Response: oriented(1); Motor Response: obeys tw2 commands(2); Systolic BP: > 89 mm Hg(4); Respiratory Rate: 10 to 29 per min(4); Jailene Score: 15; Trauma Score: 12 ED Course: 15:06 Patient arrived in ED. mr 15:06 Unknown, Unknown is Private Physician. mr 15:16 Sharmila Valentin, RN is Primary Nurse. tw2 15:16 Bed in low position. Call light in reach. Side rails up X2. Adult w/ patient. Cardiac tw2 monitor on. Pulse ox on. NIBP on. 15:17 Triage completed. tw2 15:18 Arm band placed on. tw2 15:22 Flaquito Reed MD is Attending Physician. kdr 15:24 Patient maintains SpO2 saturation greater than 95% on room air. Thermoregulation: warm tw2 blanket given to patient. 15:[address] via stretcher. vm2 15:36 CT completed. Patient moved back from CT. vm2 15:39 CT Traumagram (Head C Spine CAP wo con) In Process Unspecified. EDMS 16:01 Inserted saline lock: 22 gauge in left wrist, using aseptic technique. ms 16:46 Trinidad Paul MD is Hospitalizing Provider. kdr 19:07 Report given to JOAN Moon. tw2 19:22 No provider procedures requiring assistance completed. Patient admitted, IV remains in ea place. Administered Medications: No medications were administered Intake: 22:07 PO: 0ml; Total: 0ml. ea Outcome: 16:47 Decision to Hospitalize by Provider. kdr 16:56 Patient's length of stay in the Emergency Department was greater than 2 hours. pt being tw2 admittedPatient's length of stay extended due to 19:30 Instructed on the need for admit. ea 22:06 Admitted to Med/surg accompanied by tech, via stretcher, room 430, Report called to addison Goodwin RN on fourth floor. 22:06 Condition: stable 22:09 Patient left the ED. ea Signatures: Dispatcher [employer] EDAK Flaquito Reed MD MD kdr Rivera, Maria KeatingBasilia ms Sharmila Valentin, JOAN RN tw2 Gogo Xiong 2 Sarai Sheppard RN RN ea Corrections: (The following items were deleted from the chart) 16:24 16:23 Reassessment: CRITICAL LAB VALUE: INR 5.58 tw2 tw2 22:09 20:45 GCS: 15, ea ea
--- NOTE | 2017-09-08 16:48 | EDPHYS ---
Physician Documentation [facility] Name: Anh Murray Age: 87 yrs Sex: Female : 1930 Arrival Date: 09/08/2017 Time: 15:06 Bed 19 Private MD: Unknown, Unknown ED Physician Flaquito Reed HPI: 09/08 17:02 This 87 yrs old Female presents to ER via Wheelchair with complaints of Fall kdr Injury. 17:02 Details of fall: The patient fell from an upright position, while standing, while kdr walking, from seated position, out of a wheelchair. Onset: The symptoms/episode began/occurred Last few days she has been falling more and today she is not wanting to stand or walk. Associated injuries: The patient sustained The patient has multiple ecchymotic areas i her lower extremities,. Severity of symptoms: At their worst the symptoms were mild, in the emergency department the symptoms are unchanged. It is unknown whether or not the patient has had similar symptoms in the past. It is unknown whether or not the patient has recently seen a physician. Historical: - Allergies: 15:23 Morphine; tw2 15:23 Phenobarbital; tw2 - Home Meds: 15:23 warfarin 2 mg Oral tab 1 tab [Active]; acetaminophen 500 mg Oral tab 1 tab [Active]; tw2 atorvastatin 10 mg Oral tab 1 tab once daily [Active]; carvedilol 3.125 mg Oral tab 1 tab 2 times per day [Active]; furosemide 40 mg Oral tab 1 tab once daily [Active]; gabapentin 300 mg Oral cap 1 cap 4 times per day [Active]; levothyroxine 75 mcg tab 1 tab once daily [Active]; omeprazole 40 mg Oral cpDR 1 cap once daily [Active]; potassium chloride 20 mEq Oral TbER 1 tab once daily [Active]; prednisone 20 mg Oral tab 2 times per day [Active]; - PMHx: 15:23 Atrial Fib; CVA; High Cholesterol; Hypertension; Hypothyroidism; Myocardial infarction; tw2 - 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 - Social history:: Smoking status: Patient/guardian denies using tobacco. - Immunization history: Last tetanus immunization: unknown. - Ebola Screening: : Patient denies travel to an Ebola-affected area in the 21 days before illness onset. ROS: 17:02 Constitutional: Unable to obtain as the patient is a poor historian kdr 17:02 Unable to obtain ROS due to baseline dementia. Exam: 17:02 Constitutional: This is a well developed, well nourished but mildly cachectic patient kdr who is awake, alert, and not in any apparent distress. Head/Face: Normocephalic, atraumatic. Neck: Trachea midline, no thyromegaly or masses palpated, and no cervical lymphadenopathy. Supple, full range of motion without nuchal rigidity, or vertebral point tenderness. No Meningismus. Chest/axilla: Normal chest wall appearance and motion. Nontender with no deformity. No lesions are appreciated. Cardiovascular: Regular rate and rhythm with a normal S1 and S2. No gallops, murmurs, or rubs. Normal PMI, no JVD. No pulse deficits. Respiratory: Lungs have equal breath sounds bilaterally, clear to auscultation and percussion. No rales, rhonchi or wheezes noted. No increased work of breathing, no retractions or nasal flaring. Abdomen/GI: Soft, non-tender, with normal bowel sounds. No distension or tympany. No guarding or rebound. No evidence of tenderness throughout. Back: No spinal tenderness. No costovertebral tenderness. Full range of motion. 17:02 Skin: Appearance: ecchymosis, noted on the, right leg and left leg, that are moderate, and are diffusely located. Vital Signs: 15:18 BP 95 / 55; Pulse 89; Resp 17; Temp 97.4(O); Pulse Ox 96% on R/A; tw2 16:07 BP 98 / 61; Pulse 88; Resp 17; Pulse Ox 95% on R/A; tw2 17:00 BP 100 / 81; Pulse 70; Resp 17; Pulse Ox 95% on R/A; tw2 18:13 BP 95 / 81; Pulse 82; Resp 16; Pulse Ox 96% on R/A; tw2 19:24 BP 99 / 59; Pulse 88; Resp 16; Pulse Ox 96% on R/A; ea 20:45 BP 106 / 68; Pulse 73; Resp 17; Temp 97.4; Pulse Ox 97% on R/A; ea 21:15 BP 107 / 64; Pulse 70; Resp 18; Temp 97.2(O); Pulse Ox 97% on R/A; ea [place] Coma Score: 15:19 Eye Response: spontaneous(4). Verbal Response: oriented(5). Motor Response: obeys tw2 commands(6). Total: 15. 19:24 Eye Response: spontaneous(4). Verbal Response: confused(4). Motor Response: obeys ea commands(6). Total: 14. 20:45 Eye Response: spontaneous(4). Verbal Response: confused(4). Motor Response: obeys ea commands(6). Total: 14. 21:15 Eye Response: spontaneous(4). Verbal Response: confused(4). Motor Response: obeys ea commands(6). Total: 14. Trauma Score (Adult): 15:19 Eye Response: spontaneous(1); Verbal Response: oriented(1); Motor Response: obeys tw2 commands(2); Systolic BP: > 89 mm Hg(4); Respiratory Rate: 10 to 29 per min(4); [place] Score: 15; Trauma Score: 12 MDM: 16:47 Patient medically screened. kdr 17:02 Data reviewed: vital signs, nurses notes, lab test result(s), EKG, radiologic studies. kdr Counseling: I had a detailed discussion with the patient and/or guardian regarding: the historical points, exam findings, and any diagnostic results supporting the discharge/admit diagnosis. 09/08 15:24 Order name: Basic Metabolic Panel; Complete Time: 16:38 kdr 09/08 15:24 Order name: CBC with Diff kdr 09/08 15:24 Order name: Creatinine for Radiology; Complete Time: 16:38 kdr 09/08 15:24 Order name: Type And Screen kdr 09/08 15:24 Order name: PT-INR; Complete Time: 16:38 kdr 09/08 16:22 Order name: CBC Smear Scan EDMS 09/08 20:45 Order name: CBC with Automated Diff EDMS 09/08 20:45 Order name: CBC with Automated Diff EDMS 09/08 20:45 Order name: Comprehensive Metabolic Panel EDMS 09/08 20:45 Order name: Comprehensive Metabolic Panel EDMS 09/08 20:45 Order name: Comprehensive Metabolic Panel EDMS 09/08 20:45 Order name: Comprehensive Metabolic Panel EDMS 09/08 20:45 Order name: Magnesium EDMS 09/08 20:45 Order name: Magnesium EDMS 09/08 20:45 Order name: Magnesium EDMS 09/08 20:45 Order name: Magnesium EDMS 09/08 20:45 Order name: Phosphorus EDMS 09/08 20:45 Order name: Phosphorus EDMS 09/08 20:45 Order name: Phosphorus EDMS 09/08 20:45 Order name: Phosphorus EDMS 09/08 20:45 Order name: Protime (+INR) EDMS 09/08 20:45 Order name: Protime (+INR) EDMS 09/08 20:45 Order name: Protime (+INR) EDMS 09/08 20:45 Order name: Protime (+INR) EDMS 09/08 20:45 Order name: PTT, Activated Partial Thromb EDMS 09/08 20:45 Order name: PTT, Activated Partial Thromb EDMS 09/08 20:45 Order name: PTT, Activated Partial Thromb EDMS 09/08 20:45 Order name: PTT, Activated Partial Thromb EDMS 09/08 20:45 Order name: Urine Culture [facility] 09/08 22:08 Order name: Urine Dipstick--Ancillary (enter results) [facility] 09/08 15:24 Order name: CT Traumagram (Head C Spine CAP wo con); Complete Time: 16:38 kdr 09/08 15:24 Order name: Labs collected and sent; Complete Time: 16:01 [facility] 09/08 20:45 Order name: Occupational Therapy Consult [facility] 09/08 20:45 Order name: Physical Therapy Consult [facility] 09/08 20:45 Order name: Speech Therapy Consult [facility] 09/08 20:45 Order name: Heart Healthy EDAK Administered Medications: No medications were administered Disposition: 09/08/17 16:47 Hospitalization ordered by Trinidad Paul for Inpatient Admission. Preliminary diagnosis are Weakness, Coagulation defect, unspecified, Other slipping, tripping and stumbling and falls. - Bed requested for Telemetry/MedSurg (Inpatient). - Status is Inpatient Admission. ea - Condition is Fair. - Problem is an ongoing problem. - Symptoms have worsened. UTI on Admission? No Signatures: Dispatcher [employer] EDMS Flaquito Reed MD MD kdr Wise, Tara, RN RN 2 Sarai Sheppard RN RN [address] mw2 Corrections: (The following items were deleted from the chart) 20:44 16:47 Hospitalization Ordered by Trinidad Paul MD for Inpatient Admission. Preliminary mw2 diagnosis is Weakness; Coagulation defect, unspecified; Other slipping, tripping and stumbling and falls. Bed requested for Telemetry/MedSurg (Inpatient). Status is Inpatient Admission. Condition is Fair. Problem is an ongoing problem. Symptoms have worsened. UTI on Admission? No. kdr 22:09 20:44 09/08/2017 16:47 Hospitalization Ordered by Trinidad Paul MD for Inpatient ea Admission. Preliminary diagnosis is Weakness; Coagulation defect, unspecified; Other slipping, tripping and stumbling and falls. Bed requested for Telemetry/MedSurg (Inpatient). Status is Inpatient Admission. Condition is Fair. Problem is an ongoing problem. Symptoms have worsened. UTI on Admission? No. mw2
[2017-09-08 17:04] LABS: Anisocytosis 1+; Basophilic Stippling 1+; Blood Morphology Comment NOTED (NOT SEEN); Macrocytosis 1+; Platelet Estimate ADEQ; Polychromasia 1+; Urine White Blood Cell Casts OK
--- NOTE | 2017-09-08 18:18 | P.HP ---
Certification for Inpatient Patient admitted to: Observation With expected LOS: <2 Midnights Patient will require the following post-hospital care: None Practitioner: I am a practitioner with admitting privileges, knowledge of patient current condition, hospital course, and medical plan of care. Services: Services provided to patient in accordance with Admission requirements found in Title 42 Section 412.3 of the Code of Federal Regulations Patient History Date of Service: 09/09/17 Reason for admission: Falls History of Present Illness: 87 yrs old Female with past medical history of Afib on Coumadin, CAD s/p CABG , CVA with left side residual ,HTN , HLD , hypothyroidism who presented to the ED with complaints of having recurrent falls. Patient and son at bedside stated that patient had her last Fall yesterday while she is trying to get out of her bed into her wheelchair. Patient's son was not in the room however found her on the floor and then put her back to bed. At that time he did not bring her to the ER because patient was not complaining of any pain or any other issues. However patient's son noticed that she started having some bruising on her right knee and her back and thus decided to bring her to the ER today for further workup. Patient has been also complaining of having some generalized weakness and has been having some poor appetite for past couple of days as well. Son States that patient has been having worseing of her Mental Status as well. He states he is not oriented as much as she would at baseline. Patient has been seen here in the hospital frequently for altered mental status and usually gets treated for UTI and then discharged home. Patient's family has been trying to get her to the halfway however due to financial difficulties patient has not been able to find appropriate halfway for further care. In the ER patient was found to have a separate therapeutic INR, UTI, AMS and large hematoma in the piriformis muscle. Patient was thus referred over for an admission. Allergies phenobarbital Allergy (Mild, Verified 02/02/17 15:06) Rash morphine Allergy (Verified 02/02/17 15:06) Unknown Home Medications: Levothyroxine [Synthroid*] 75 mcg PO [id number] 10/22/15 Furosemide [Lasix*] 40 mg PO DAILY 03/14/16 Acetaminophen 1 tab PO DAILY PRN 03/21/17 Atorvastatin Calcium [Lipitor*] 1 tab PO DAILY 03/21/17 Gabapentin [Neurontin] 300 mg PO QID 03/21/17 Omeprazole [Prilosec] 40 mg PO DAILY 03/21/17 Potassium Chloride 20 meq PO DAILY 03/21/17 Brinzolamide/Brimonidine Tart [Simbrinza 1%-0.2% Eye Drops] 1 drop RIGHT EYE BID 09/09/17 Carvedilol [Coreg*] 6.25 mg PO BID 09/09/17 Prednisolone Acetate/Pf [Prednisolone Acet 1% Eye Drop] 1 drop RIGHT EYE BID 05/24 Tramadol HCl [Ultram] 50 mg PO BIDP PRN 09/09/17 Warfarin Sodium [Coumadin*] 2 mg PO DIRECTED 09/09/17 Warfarin Sodium [Coumadin*] 2.5 mg PO DIRECTED 09/09/17 predniSONE [Deltasone] 20 mg PO BID 09/09/17 - Past Medical/Surgical History Diabetic: Yes -: Hypertension -: CAD, CABG -: Hyperlipidemia -: Atrial fibrillation, chronic anti coagulation -: Hypothyroidism -: History CVA - 02/2012 -: Right hip fracture - 01/2013 -: 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 Children-5, she no longer works - Family History Mother -: Heart disease - Social History Alcohol use: No CD- Drugs: No Caffeine use: Yes Review of Systems General: As per HPI Physical Examination - Physical Exam General: Alert, Demented, Mild distress, Confused, Other (Ill appearing) HEENT: Atraumatic Neck: Supple Respiratory: Clear to auscultation bilaterally, Normal air movement Cardiovascular: Regular rate/rhythm, Normal S1 S2 Gastrointestinal: Normal bowel sounds, Soft and benign, Non-distended, No tenderness Musculoskeletal: Other (Right Knee brusing noted. Pt has several Brusing noted through out her body. ) Integumentary: No rashes, Pressure ulcer Neurological: Normal speech, Abnormal strength, Abnormal tone, Abnormal affect Lymphatics: No axilla or inguinal lymphadenopathy - Studies Laboratory Data (last 24 hrs) 09/08/17 15:57: PT 67.0 H, INR 5.58 H* 09/08/17 15:57: Creatinine 1.40 H 09/08/17 15:57: WBC 14.6 H, Hgb 9.5 L D, Hct 28.5 L D, Plt Count 174 09/08/17 15:57: Sodium 139, Potassium 4.3, BUN 57 H, Creatinine 1.50 H, Glucose 291 H Assessment and Plan - Problems (Diagnosis) (1) Fall Current Visit: Yes Status: Acute Plan: Recurrent Falls at the house -PT OT consulted. -Fall precaution given -At baseline patient has limited ambulation. Uses wheelchair to get around Qualifiers: Encounter type: initial encounter Qualified Code(s): W19.XXXA - Unspecified fall, initial encounter (2) Toxic encephalopathy Current Visit: Yes Status: Acute Plan: AMS worse from her baseline. Most likely 2.2 to UTI -IV rocephin -Monitor closely for worsening (3) UTI (urinary tract infection) Onset Date: 03/22/17 Current Visit: No Status: Acute Plan: UA with UTI. Culture + for 4 + gram - rods -IV rocephin for now -F.U with Culture Qualifiers: Urinary tract infection type: acute cystitis (4) Supratherapeutic INR Current Visit: Yes Status: Acute Plan: INR of 5.6 at this time -Patient on Coumadin for Afib -Will hold it for today and repeat INR. (5) Hematoma Current Visit: Yes Status: Acute Plan: Hematoma noted of the piriformis soft tissue. 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 Current Visit: No Status: Chronic (7) Atrial fibrillation Onset Date: 02/07/17 Current Visit: No Status: Chronic Qualifiers: Atrial fibrillation type: chronic Qualified Code(s): I48.2 - Chronic atrial fibrillation (8) CKD (chronic kidney disease) stage 3, GFR 30-59 ml/min Current Visit: No Status: Chronic (9) Congestive heart failure (CHF) Onset Date: 02/07/17 Current Visit: No Status: Chronic Qualifiers: Heart failure type: systolic Heart failure chronicity: chronic Qualified Code(s): I50.22 - Chronic systolic (congestive) heart failure (10) Depression Current Visit: No Status: Chronic Qualifiers: Depression Type: major depressive disorder Active/Remission status: currently active Psychotic features: without psychotic features (11) GERD (gastroesophageal reflux disease) Onset Date: 02/07/17 Current Visit: No Status: Chronic Qualifiers: Esophagitis presence: without esophagitis Qualified Code(s): K21.9 - Gastro -esophageal reflux disease without esophagitis (12) History of CVA with residual deficit Onset Date: 02/07/17 Current Visit: No Status: Chronic (13) Hx of CABG Onset Date: 02/07/17 Current Visit: No Status: Chronic (14) Hyperlipidemia Onset Date: 02/07/17 Current Visit: No Status: Chronic Qualifiers: Hyperlipidemia type: mixed hyperlipidemia Qualified Code(s): E78.2 - Mixed hyperlipidemia (15) Hypertension Onset Date: 02/07/17 Current Visit: No Status: Chronic Qualifiers: Hypertension type: essential hypertension Qualified Code(s): I10 - Essential (primary) hypertension (16) Hypothyroidism Onset Date: 02/07/17 Current Visit: No Status: Chronic Qualifiers: Hypothyroidism type: acquired Qualified Code(s): E03.9 - Hypothyroidism, unspecified Discharge Plan: Other Plan to discharge in: 48 Hours - Advance Directives Does patient have a Living Will: No Does patient have a Durable POA for Healthcare: Yes - Code Status/Comfort Care Code Status Assessed: Yes Critical Care: No
[2017-09-08] MEDS ORDERED: ONDANSETRON 4 MG/2 ML VIAL IV PRN (20:44)
[2017-09-08] MEDS ORDERED: ACETAMINOPHEN 500 MG TAB PO PRN (20:44)
[2017-09-08] MEDS: INSULIN -REGULAR HUMAN 50 UNIT/0.5 ML ML SQ SCH (21:00)
[2017-09-08 22:29] LABS: Urine Blood TRACE (NEG); Urine Glucose TRACE (NEG); Urine Protein 1+ (NEG); Urine pH 6.5 (5.0-7.0)
[2017-09-09 05:00] LABS: Absolute Lymphocytes (CBC) 3.1 K/uL (0.7-4.9); Absolute Monocytes 0.8 K/uL (0.1-1.3); Absolute Neutrophil 11.2 K/uL (1.8-8.0); Basophils % 0.2 % (0-1.3); Eosinophils % 0.6 % (0-4.4); Hematocrit 25.7 % (36.0-45.0); Lymphocytes % 20.1 % (15.3-44.8); MCH 35.3 pg (27.0-35.0); MCV 101.4 fL (80-100); MPV 9.6 fL (7.6-11.3); RBC Red Blood Cell Count 2.54 M/uL (3.86-4.86)
[2017-09-09 05:29] LABS: Albumin 2.6 g/dL (3.4-5.0); Bilirubin Total 0.8 mg/dL (0.2-1.0); Magnesium 2.3 mg/dL (1.8-2.4); Phosphorus 2.8 mg/dL (2.5-4.9); Potassium 4.4 mmol/L (3.5-5.1); Protein, Total 5.4 g/dL (6.4-8.2)
[2017-09-09 05:32] LABS: Protime INR 4.29
[2017-09-09] MEDS: INSULIN -REGULAR HUMAN 50 UNIT/0.5 ML ML SQ SCH ×4 (07:30→20:46)
[2017-09-09] MEDS ORDERED: CEFTRIAXONE 1 GM/NS 50 ML 1 GM/50 ML BAG IV SCH (09:00)
[2017-09-09] MEDS ORDERED: CEFTRIAXONE/SWI 1gm 1 GM/10 ML SYR IV SCH (09:00)
[2017-09-09] MEDS ORDERED: ACETAMINOPHEN 500 MG TAB PO PRN (09:55)
[2017-09-09] MEDS: TRAMADOL HCL 50 MG TAB PO PRN ×2 (11:01→23:35)
[2017-09-09] MEDS: ATORVASTATIN 10 MG TAB PO SCH (11:01)
[2017-09-09] MEDS: CARVEDILOL 6.25 MG TAB PO SCH ×2 (11:02→20:45)
[2017-09-09] MEDS: PANTOPRAZOLE 40MG TABLET PO SCH (11:02)
[2017-09-09] MEDS: FUROSEMIDE 40 MG TABLET PO SCH (11:02)
[2017-09-09] MEDS: predniSONE 20 MG TAB PO SCH ×2 (11:02→20:45)
--- NOTE | 2017-09-09 11:06 | P.PN ---
Subjective Date of Service: 09/09/17 Chief Complaint: Falls Pt seen and examined at bedside with RN. Much more alert and oriented than yesterday. Working with PT and sitting at the edge of the bed. No c/o overnight Review of Systems General: As per HPI Physical Examination - Vital Signs Temperature: 97.2 F Blood Pressure: 106/56 Pulse: 66 Respirations: 20 Pulse Ox (%): 96 - Physical Exam General: Alert, Oriented x2, Demented HEENT: Atraumatic Neck: Supple Respiratory: Clear to auscultation bilaterally, Normal air movement Cardiovascular: Regular rate/rhythm, Normal S1 S2 Gastrointestinal: Normal bowel sounds, Soft and benign, Non-distended, No tenderness Musculoskeletal: Other (Brusing of the left knee still present. Hematoma of the piriformis muscle noted. No changes. ) Integumentary: No rashes, Pressure ulcer Neurological: Normal speech, Normal tone, Normal affect Lymphatics: No axilla or inguinal lymphadenopathy - Studies Laboratory Data (last 24 hrs) 09/08/17 15:57: PT 67.0 H, INR 5.58 H* 09/08/17 15:57: Creatinine 1.40 H 09/08/17 15:57: WBC 14.6 H, Hgb 9.5 L D, Hct 28.5 L D, Plt Count 174 09/08/17 15:57: Sodium 139, Potassium 4.3, BUN 57 H, Creatinine 1.50 H, Glucose 291 H Medications List Reviewed: Yes Assessment & Plan - Problems (Diagnosis) (1) Fall Current Visit: Yes Status: Acute Plan: Recurrent Falls at the house -PT OT consulted. -Fall precaution given -At baseline patient has limited ambulation. Uses wheelchair to get around Qualifiers: Encounter type: initial encounter Qualified Code(s): W19.XXXA - Unspecified fall, initial encounter (2) UTI (urinary tract infection) Onset Date: 03/22/17 Current Visit: No Status: Acute Plan: UA with UTI. Culture + for 4+ gram - rods -IV rocephin for now -F.U with Culture Qualifiers: Urinary tract infection type: acute cystitis (3) Supratherapeutic INR Current Visit: Yes Status: Acute Plan: INR of 5.6 in ED. Now INR is 4.56 -Patient on Coumadin for Afib -Will hold it for now and repeat INR. No active bleeding noted. No need for Vit K at this time (4) Hematoma Current Visit: Yes Status: Acute Plan: Hematoma noted of the piriformis soft tissue. -Will continue to monitor for worsening. No worsening noted today. 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 Current Visit: No Status: Chronic (6) Atrial fibrillation Onset Date: 02/07/17 Current Visit: No Status: Chronic Qualifiers: Atrial fibrillation type: chronic (7) CKD (chronic kidney disease) stage 3, GFR 30-59 ml/min Current Visit: No Status: Chronic (8) Congestive heart failure (CHF) Onset Date: 02/07/17 Current Visit: No Status: Chronic Qualifiers: Heart failure type: systolic Heart failure chronicity: chronic Qualified Code(s): I50.22 - Chronic systolic (congestive) heart failure (9) Depression Current Visit: No Status: Chronic Qualifiers: Depression Type: major depressive disorder Active/Remission status: currently active Psychotic features: without psychotic features (10) GERD (gastroesophageal reflux disease) Onset Date: 02/07/17 Current Visit: No Status: Chronic Qualifiers: Esophagitis presence: without esophagitis Qualified Code(s): K21.9 - Gastro -esophageal reflux disease without esophagitis (11) History of CVA with residual deficit Onset Date: 02/07/17 Current Visit: No Status: Chronic (12) Hx of CABG Onset Date: 02/07/17 Current Visit: No Status: Chronic (13) Hyperlipidemia Onset Date: 02/07/17 Current Visit: No Status: Chronic Qualifiers: Hyperlipidemia type: mixed hyperlipidemia Qualified Code(s): E78.2 - Mixed hyperlipidemia (14) Hypertension Onset Date: 02/07/17 Current Visit: No Status: Chronic Qualifiers: Hypertension type: essential hypertension (15) Hypothyroidism Onset Date: 02/07/17 Current Visit: No Status: Chronic Qualifiers: Hypothyroidism type: acquired Qualified Code(s): E03.9 - Hypothyroidism, unspecified
[2017-09-09] MEDS: GABAPENTIN 300 MG CAP PO SCH ×3 (13:15→20:45)
[2017-09-09] MEDS ORDERED: CEFTRIAXONE 1000 MG/VIAL IM SCH (16:27)
[2017-09-09] MEDS: CEFTRIAXONE 1000 MG/VIAL IM SCH (18:12)
[2017-09-09] MEDS: LIDOCAINE 1% MPF 5 ML VIAL IJ SCH (18:16)
[2017-09-10 05:16] LABS: Absolute Lymphocytes (CBC) 1.1 K/uL (0.7-4.9); Absolute Monocytes 0.6 K/uL (0.1-1.3); Absolute Neutrophil 12.3 K/uL (1.8-8.0); Basophils % 0.1 % (0-1.3); Hematocrit 27.6 % (36.0-45.0); Lymphocytes % 7.8 % (15.3-44.8); MCH 34.8 pg (27.0-35.0); MCV 102.2 fL (80-100); MPV 9.8 fL (7.6-11.3); Monocytes % 4.1 % (3.3-12.3)
[2017-09-10 05:17] LABS: Protime INR 2.08
[2017-09-10 05:34] LABS: Albumin 2.9 g/dL (3.4-5.0); Bilirubin Total 1.1 mg/dL (0.2-1.0); Magnesium 2.5 mg/dL (1.8-2.4); Phosphorus 3.7 mg/dL (2.5-4.9); Potassium 4.5 mmol/L (3.5-5.1)
[2017-09-10] MEDS: TRAMADOL HCL 50 MG TAB PO PRN (05:41)
[2017-09-10] MEDS: LEVOTHYROXINE SOD 0.075 MG TAB PO SCH (05:42)
[2017-09-10] MEDS: PANTOPRAZOLE 40MG TABLET PO SCH (05:42)
[2017-09-10 06:15] LABS: Blood Morphology Comment NOTED (NOT SEEN); Platelet Estimate ADEQ; Polychromasia 1+
[2017-09-10] MEDS: CARVEDILOL 6.25 MG TAB PO SCH ×2 (09:00→21:50)
[2017-09-10] MEDS: FUROSEMIDE 40 MG TABLET PO SCH (09:00)
[2017-09-10] MEDS ORDERED: HOME MED 1 EA UNK (Omeprazole [Prilosec] 40 MG) PO SCH (09:00)
[2017-09-10] MEDS: CEFTRIAXONE 1000 MG/VIAL IM SCH (09:00)
[2017-09-10] MEDS: INSULIN -REGULAR HUMAN 50 UNIT/0.5 ML ML SQ SCH ×4 (10:19→21:52)
[2017-09-10] MEDS: GABAPENTIN 300 MG CAP PO SCH ×4 (10:20→21:50)
[2017-09-10] MEDS: ATORVASTATIN 10 MG TAB PO SCH (10:21)
[2017-09-10] MEDS: predniSONE 20 MG TAB PO SCH ×2 (10:21→21:50)
[2017-09-10] MEDS: LIDOCAINE 1% MPF 5 ML VIAL IJ SCH (10:22)
--- NOTE | 2017-09-10 12:10 | P.PN ---
Subjective Date of Service: 09/10/17 Chief Complaint: Falls Pt seen and examined at bedside with RN. Antoinette 2 today. Still having intermittent confusion, not at the baseline. Working with PT and sitting at the edge of the bed. No c/o overnight Review of Systems General: As per HPI Physical Examination - Vital Signs Temperature: 97 F Blood Pressure: 96/54 Pulse: 73 Respirations: 18 Pulse Ox (%): 96 - Physical Exam General: Alert, Oriented x2, Demented HEENT: Atraumatic, PERRLA, EOMI Neck: Supple, JVD not distended Respiratory: Clear to auscultation bilaterally, Normal air movement Cardiovascular: Regular rate/rhythm, Normal S1 S2 Gastrointestinal: Normal bowel sounds, No tenderness Musculoskeletal: No tenderness Integumentary: No rashes Neurological: Normal speech, Normal tone, Normal affect Lymphatics: No axilla or inguinal lymphadenopathy - Studies Medications List Reviewed: Yes Assessment & Plan - Problems (Diagnosis) (1) Fall Current Visit: Yes Status: Acute Plan: Recurrent Falls at the house -PT OT consulted. -Fall precaution given -At baseline patient has limited ambulation. Uses wheelchair to get around -May benefit from SNF placement. Will try to get CM to setup for SNF vs Qualifiers: Encounter type: initial encounter Qualified Code(s): W19.XXXA - Unspecified fall, initial encounter (2) Toxic encephalopathy Current Visit: Yes Status: Acute Plan: Still having Intermittent AMS worse from her baseline. Most likely 2.2 to UTI -Switch to PO levaquin now. -Monitor closely for worsening (3) UTI (urinary tract infection) Onset Date: 03/22/17 Current Visit: No Status: Acute Plan: UA with UTI. Culture + for ECOLI -Switch to PO levaqin for now Qualifiers: Urinary tract infection type: acute cystitis (4) Supratherapeutic INR Current Visit: Yes Status: Acute Plan: INR of 2.01 today -Patient on Coumadin for Afib -Will restart today -Will repeat INR as we have started patient on Levaquin and Coumadin today. (5) Hematoma Current Visit: Yes Status: Acute Plan: Hematoma noted of the piriformis soft tissue. 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 Current Visit: No Status: Chronic (7) Atrial fibrillation Onset Date: 02/07/17 Current Visit: No Status: Chronic Qualifiers: Atrial fibrillation type: chronic Qualified Code(s): I48.2 - Chronic atrial fibrillation (8) CKD (chronic kidney disease) stage 3, GFR 30-59 ml/min Current Visit: No Status: Chronic (9) Congestive heart failure (CHF) Onset Date: 02/07/17 Current Visit: No Status: Chronic Qualifiers: Heart failure type: systolic Heart failure chronicity: chronic Qualified Code(s): I50.22 - Chronic systolic (congestive) heart failure (10) Depression Current Visit: No Status: Chronic Qualifiers: Depression Type: major depressive disorder Active/Remission status: currently active Psychotic features: without psychotic features (11) GERD (gastroesophageal reflux disease) Onset Date: 02/07/17 Current Visit: No Status: Chronic Qualifiers: Esophagitis presence: without esophagitis Qualified Code(s): K21.9 - Gastro -esophageal reflux disease without esophagitis (12) History of CVA with residual deficit Onset Date: 02/07/17 Current Visit: No Status: Chronic (13) Hx of CABG Onset Date: 02/07/17 Current Visit: No Status: Chronic (14) Hyperlipidemia Onset Date: 02/07/17 Current Visit: No Status: Chronic Qualifiers: Hyperlipidemia type: mixed hyperlipidemia Qualified Code(s): E78.2 - Mixed hyperlipidemia (15) Hypertension Onset Date: 02/07/17 Current Visit: No Status: Chronic Qualifiers: Hypertension type: essential hypertension Qualified Code(s): I10 - Essential (primary) hypertension (16) Hypothyroidism Onset Date: 02/07/17 Current Visit: No Status: Chronic Qualifiers: Hypothyroidism type: acquired Qualified Code(s): E03.9 - Hypothyroidism, unspecified Discharge Plan: Other Plan to discharge in: 24 Hours - Code Status/Comfort Care Code Status Assessed: Yes Critical Care: No
[2017-09-10] MEDS: levoFLOXacin 500 MG TAB PO SCH (14:42)
[2017-09-10] MEDS ORDERED: WARFARIN SODIUM 2 MG TAB PO SCH (17:00)
[2017-09-10 20:40] VITALS: O2SAT 98
[2017-09-11 04:22] LABS: Absolute Monocytes 0.6 K/uL (0.1-1.3); Absolute Neutrophil 9.9 K/uL (1.8-8.0); Hematocrit 25.6 % (36.0-45.0); Lymphocytes % 8.3 % (15.3-44.8); MCH 35.5 pg (27.0-35.0); MCV 103.2 fL (80-100); MPV 9.4 fL (7.6-11.3); RBC Red Blood Cell Count 2.48 M/uL (3.86-4.86)
[2017-09-11 04:23] LABS: Protime INR 2.07
[2017-09-11 04:32] LABS: Albumin 2.5 g/dL (3.4-5.0); Bilirubin Total 0.8 mg/dL (0.2-1.0); Magnesium 2.2 mg/dL (1.8-2.4); Phosphorus 2.9 mg/dL (2.5-4.9); Potassium 4.2 mmol/L (3.5-5.1); Protein, Total 5.6 g/dL (6.4-8.2)
[2017-09-11] MEDS: LEVOTHYROXINE SOD 0.075 MG TAB PO SCH (05:33)
[2017-09-11] MEDS: PANTOPRAZOLE 40MG TABLET PO SCH (05:33)
[2017-09-11 06:49] VITALS: BMI 18.9
[2017-09-11] MEDS: INSULIN -REGULAR HUMAN 50 UNIT/0.5 ML ML SQ SCH ×4 (07:30→21:18)
[2017-09-11] MEDS: LIDOCAINE 1% MPF 5 ML VIAL IJ SCH (09:00)
[2017-09-11] MEDS: GABAPENTIN 300 MG CAP PO SCH ×4 (09:50→21:17)
[2017-09-11] MEDS: predniSONE 20 MG TAB PO SCH ×2 (09:50→21:17)
[2017-09-11] MEDS: ATORVASTATIN 10 MG TAB PO SCH (09:50)
[2017-09-11] MEDS: FUROSEMIDE 40 MG TABLET PO SCH (09:50)
[2017-09-11] MEDS: CARVEDILOL 6.25 MG TAB PO SCH ×2 (09:51→21:17)
[2017-09-11] MEDS: levoFLOXacin 500 MG TAB PO SCH (09:52)
--- NOTE | 2017-09-11 10:23 | P.PN ---
Subjective Date of Service: 09/11/17 Chief Complaint: Falls Pt seen and examined at bedside with RN. Antoinette 2 today. Pt now at baseline. Had 7 beats of VTACH last night with HR of 160.Pt to work with PT today. It is advise that Patient go to SNF for further rehab for safe discharge home. Pt with Advance dementia and frequent falls at home due to generalized weakness, she will benefit from SNF for Therapy and than DC once doing well. Review of Systems General: As per HPI Physical Examination - Vital Signs Temperature: 97.0 F Blood Pressure: 114/58 Pulse: 63 Respirations: 18 Pulse Ox (%): 97 - Physical Exam General: Alert, Oriented x2, Demented HEENT: Atraumatic Neck: Supple Respiratory: Normal air movement, Expiratory wheezes Cardiovascular: Regular rate/rhythm, Normal S1 S2 Gastrointestinal: Normal bowel sounds, Soft and benign, Non-distended, No tenderness Musculoskeletal: No tenderness Integumentary: Other (Hematoma noted on the left leg in between the thighs in the medial Aspect. Improvement noted but Minimal ) Neurological: Normal tone, Normal affect, Abnormal speech Lymphatics: No axilla or inguinal lymphadenopathy - Studies Medications List Reviewed: Yes Assessment & Plan - Problems (Diagnosis) (1) Fall Onset Date: 09/11/17 Current Visit: Yes Status: Acute Plan: Recurrent Falls at the house -PT OT consulted. -Fall precaution given -At baseline patient has limited ambulation. Uses wheelchair to get around however, it is limited as pt is not getting therapy at home. If patient get Therapy pt will be able to have some ambulation and safe transfer. -May benefit from SNF placement. Will try to get CM to setup for SNF Qualifiers: Encounter type: initial encounter Qualified Code(s): W19.XXXA - Unspecified fall, initial encounter (2) Toxic encephalopathy Onset Date: 09/11/17 Current Visit: Yes Status: Acute Plan: Patient now at baseline. Most likely 2.2 to UTI -Switch to PO levaquin now. -Monitor closely for worsening (3) UTI (urinary tract infection) Onset Date: 03/22/17 Current Visit: No Status: Acute Plan: UA with UTI. Culture + for ECOLI -Switch to PO levaqin for now Qualifiers: Urinary tract infection type: acute cystitis (4) Supratherapeutic INR Onset Date: 09/11/17 Current Visit: Yes Status: Acute Plan: INR of 2.07 today -Restarted yesterday. Will recheck INR [place] (5) Hematoma Onset Date: 09/11/17 Current Visit: Yes Status: Acute Plan: Hematoma noted of the piriformis soft tissue of the left leg -Still with Minimal Improvement -Will continue to monitor and RICE therapy (6) V-tach Current Visit: Yes Status: Acute Plan: Pt with 7 beats of VTACH. Will need closer monitoring while getting therapy. -Converted now and doing well. 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 Onset Date: 09/11/17 Current Visit: Yes Status: Chronic (8) Atrial fibrillation Onset Date: 02/07/17 Current Visit: No Status: Chronic Qualifiers: Atrial fibrillation type: chronic Qualified Code(s): I48.2 - Chronic atrial fibrillation (9) CKD (chronic kidney disease) stage 3, GFR 30-59 ml/min Onset Date: 09/11/17 Current Visit: Yes Status: Chronic (10) Congestive heart failure (CHF) Onset Date: 02/07/17 Current Visit: No Status: Chronic Qualifiers: Heart failure type: systolic Heart failure chronicity: chronic Qualified Code(s): I50.22 - Chronic systolic (congestive) heart failure (11) Depression Onset Date: 09/11/17 Current Visit: Yes Status: Chronic Qualifiers: Depression Type: major depressive disorder Active/Remission status: currently active Psychotic features: without psychotic features (12) GERD (gastroesophageal reflux disease) Onset Date: 02/07/17 Current Visit: No Status: Chronic Qualifiers: Esophagitis presence: without esophagitis Qualified Code(s): K21.9 - Gastro -esophageal reflux disease without esophagitis (13) History of CVA with residual deficit Onset Date: 02/07/17 Current Visit: No Status: Chronic (14) Hx of CABG Onset Date: 02/07/17 Current Visit: No Status: Chronic (15) Hyperlipidemia Onset Date: 02/07/17 Current Visit: No Status: Chronic Qualifiers: Hyperlipidemia type: mixed hyperlipidemia Qualified Code(s): E78.2 - Mixed hyperlipidemia (16) Hypertension Onset Date: 02/07/17 Current Visit: No Status: Chronic Qualifiers: Hypertension type: essential hypertension Qualified Code(s): I10 - Essential (primary) hypertension (17) Hypothyroidism Onset Date: 02/07/17 Current Visit: No Status: Chronic Qualifiers: Hypothyroidism type: acquired Qualified Code(s): E03.9 - Hypothyroidism, unspecified Discharge Plan: Other Plan to discharge in: 48 Hours - Code Status/Comfort Care Code Status Assessed: Yes Critical Care: No
[2017-09-11] MEDS ORDERED: WARFARIN SODIUM 2.5 MG TAB PO SCH (17:00)
[2017-09-12 05:09] LABS: Magnesium 2.4 mg/dL (1.8-2.4); Phosphorus 2.7 mg/dL (2.5-4.9)
[2017-09-12] MEDS: LEVOTHYROXINE SOD 0.075 MG TAB PO SCH (05:34)
[2017-09-12] MEDS: PANTOPRAZOLE 40MG TABLET PO SCH (05:34)
[2017-09-12] MEDS: INSULIN -REGULAR HUMAN 50 UNIT/0.5 ML ML SQ SCH ×2 (07:30→11:28)
[2017-09-12] MEDS: LIDOCAINE 1% MPF 5 ML VIAL IJ SCH (09:00)
[2017-09-12] MEDS: FUROSEMIDE 40 MG TABLET PO SCH (10:30)
[2017-09-12] MEDS: levoFLOXacin 500 MG TAB PO SCH (10:30)
[2017-09-12] MEDS: ATORVASTATIN 10 MG TAB PO SCH (10:31)
[2017-09-12] MEDS: GABAPENTIN 300 MG CAP PO SCH ×2 (10:31→13:09)
[2017-09-12] MEDS: CARVEDILOL 6.25 MG TAB PO SCH (10:31)
[2017-09-12] MEDS: predniSONE 20 MG TAB PO SCH (10:31)
[2017-09-12] MEDS: TRAMADOL HCL 50 MG TAB PO PRN (11:25)
[2017-09-12 12:28] VITALS: BP 93/54; TEMP 97.3
[2017-09-12 12:40] LABS: Protime INR 2.04
--- NOTE | 2017-09-12 13:48 | DS ---
Date of Discharge: 09/12/2017 Admitting Diagnosis: 1. Status post fall. 2. Metabolic encephalopathy. 3. Urinary tract infection secondary to Escherichia coli and Enterococcus faecalis. 4. Supratherapeutic INR. 5. Hematoma on the piriformis soft tissue. 6. Stage III pressure ulcer of the left buttock. 7. Atrial fibrillation, chronic, on anticoagulation. 8. Chronic kidney disease, stage 3. 9. Congestive heart failure, chronic, systolic. 10. Depression, major depressive disorder. 11. Gastroesophageal reflux disease without esophagitis. 12. History of cerebrovascular accident with residual defect. 13. History of coronary artery disease status post coronary artery bypass graft. 14. Mixed hyperlipidemia. 15. Essential hypertension. 16. Hypothyroidism. Discharge Diagnoses: 1. Status post fall. The patient uses wheelchair at baseline. Son refused intermediate facility or rehab. 2. Acute metabolic encephalopathy, improved, secondary to urinary tract infection. 3. Urinary tract infection, acute cystitis with microscopic hematuria secondary to Escherichia coli and Enterococcus faecalis, vancomycin sensitive. The patient will finish a course of antibiotics p.o. 4. Supratherapeutic INR, Coumadin coagulopathy, INR now back to baseline within therapeutic range. 5. Hematoma, piriformis soft tissue secondary to use of Coumadin coagulopathy. 6. Stage III pressure ulcer of the left buttock. Continue wound care and offloading. 7. Chronic atrial fibrillation. 8. Chronic kidney disease, stage 3. 9. Congestive heart failure, systolic dysfunction, chronic. 10. Major depressive disorder. 11. Gastroesophageal reflux disease without esophagitis. 12. History of cerebrovascular accident with residual deficit. 13. Coronary artery disease status post coronary artery bypass graft, [place] artery and [place] heart without angina. 14. Mixed hyperlipidemia. 15. Essential hypertension. 16. Hypothyroidism. Hospital Course: The patient is an 87-year-old female, who stays at home with her son who is the primary caregiver, had a fall and the patient was found to have a bruise and hematoma. The patient also had INR that was elevated at 5.58 , on Coumadin coagulopathy. Her mental status is not the same and she was found to have UTI, which showed E. coli and Enterococcus faecalis in the urine cultures, and therefore was treated with IV antibiotics. The patient's mental status improved. Regarding her supratherapeutic INR, Coumadin was held and her INR improved and is now back in range. The patient's hematoma will likely require several weeks to dissipate. She was evaluated by Physical Therapy and would benefit from SNF; however, the patient does not wish to get the patient over to SNF for rehab, therefore physical therapy with home health was set up. The patient otherwise did well. Vital signs remained stable. She was afebrile. Her white blood cell count improved. She was then ready for discharge. Again, son understands the patient has risk for recurrent falls, recurrent hematoma, intracranial bleed, hip fracture, or even related to complications from bleeding. He understands and wishes to take the patient home. He has a hospital bed, bed alarm, and monitors via video and does not wish to take the patient to intermediate facility. The patient has been discharged home with home health care. Condition: Fair. Activity: Fall precautions. Ambulate with transfer to wheelchair only, a local primary care physician in the next week if she has worsening condition, INR check in the next 3-4 days. Diet: Low-sodium fluid-restricted diet. Medications: As per medication reconciliation list. Physical Examination: Vital Signs: Stable. Afebrile. General: Awake, alert, oriented to self. Elderly female, frail, BMI 18. CV: S1, S2. Irregularly irregular. Peripheral pulses present. Respiratory: Moving air well bilaterally. No wheezing. Gastrointestinal: Abdomen is soft, nontender, nondistended. Positive bowel sounds. Extremities: No clubbing, cyanosis, or edema. Total time spent discharging patient was 33 min RUBY Voice ID: [id number] Report ID: [id number] PHILLIP
== END 2017-09-12 14:57 | disposition home health service (06) | DRG 689 ==
LOC: ER 15:03 → ERHOLD 20:44 → OBSVTOIN 20:44 → INTOOBSV 20:44 → 4TH 21:09 → OBSVTOIN 09-09 11:20
PROVIDERS: ADMIT Family Medicine; ATTEND Family Medicine
DX: N30.01 Acute cystitis with hematuria (principal); L89.323 Pressure ulcer of left buttock, stage 3; G93.41 Metabolic encephalopathy; I13.0 Hypertensive heart and chronic kidney disease with heart failure and stage 1 through stage 4 chronic kidney disease, or unspecified chronic kidney disease; I50.22 Chronic systolic (congestive) heart failure; I47.2 Ventricular tachycardia; B96.20 Unspecified Escherichia coli [E. coli] as the cause of diseases classified elsewhere; B95.2 Enterococcus as the cause of diseases classified elsewhere; R79.1 Abnormal coagulation profile; I48.2 Chronic atrial fibrillation; Z79.01 Long term (current) use of anticoagulants; T45.515A Adverse effect of anticoagulants, initial encounter; N18.3 Chronic kidney disease, stage 3 (moderate); F32.9 Major depressive disorder, single episode, unspecified; K21.9 Gastro-esophageal reflux disease without esophagitis; I25.10 Atherosclerotic heart disease of native coronary artery without angina pectoris; Z95.1 Presence of aortocoronary bypass graft; E78.2 Mixed hyperlipidemia; E03.9 Hypothyroidism, unspecified; Z99.3 Dependence on wheelchair; F03.90 Unspecified dementia, unspecified severity, without behavioral disturbance, psychotic disturbance, mood disturbance, and anxiety; S70.11XA Contusion of right thigh, initial encounter; W06.XXXA Fall from bed, initial encounter; Y92.003 Bedroom of unspecified non-institutional (private) residence as the place of occurrence of the external cause; Z88.5 Allergy status to narcotic agent; Z79.02 Long term (current) use of antithrombotics/antiplatelets; Z79.52 Long term (current) use of systemic steroids; S30.0XXA Contusion of lower back and pelvis, initial encounter; I69.920 Aphasia following unspecified cerebrovascular disease; I25.2 Old myocardial infarction
CPT/HCPCS: 36415; 70450; 71250; 72125; 80048; 80053; 81003; 82962; 83735; 84100; 85025; 85610; 85730; 86850; 86900; 86901; 87077; 87086; 87088; 87186; 97163; 99285; G0378; J0696; J7512

== ENCOUNTER 2017-09-15 05:17 | Emergency (ER) | payer OTHER ==
[2011-07-09 14:19] VITALS: BP 132/78
--- OUTSIDE RECORDS SUMMARY | 2017-09-15 05:27 | XMS REPORT | Continuity of Care Document ---
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/18 Problem 02/07/2013 [facility] artery 93 Medical bypass grafts x Center 4 Acute GI Active Problem 07/13/2011 [facility] bleeding AF - Atrial Active Problem 07/13/2011 [facility] fibrillation CAD - Coronary Active Problem 07/13/2011 [facility] artery disease Chest pain Active Problem 07/13/2011 [facility] CHF - Active Problem 07/13/2011 [facility] Congestive heart failure HTN - Active Problem 07/13/2011 [facility] Hypertension Acute GI Active Problem 02/07/2013 [facility] Center AF - Atrial Active Problem 02/07/2013 [facility] Angina Resolved Problem 02/07/2013 [facility] Bronchitis Resolved Problem 02/07/2013 [facility] CAD Resolved Problem 02/07/2013 [facility] CAD - Coronary Active Problem 02/07/2013 [facility] Chest pain Active Problem 02/07/2013 [facility] CHF - Active Problem 02/07/2013 [facility] heart failure Center CVA Resolved Problem 02/07/2013 [facility] Diabetes Resolved Problem 02/07/2013 [facility] HTN - Active Problem 02/07/2013 [facility] Hypertension Resolved Problem 02/07/2013 [facility] CVA Active [facility] GASTROINTEST Active [facility] HEMORR NOS Medications Medication Details Route Status Patient Ordering Order Source Instructions Provider Date warfarin 2.5 mg, 1 tab, Inactive [facility] Route: PO, Drug ntreras 2012 Medical form: TAB, ONCE, Center Dosing Weight 65.005, kg, Start date: 02/05/13 14:00:00, Stop date: 02/05/13 14:00:00Nurse to ensure documentation of patient education per anticoagulation policy. Avoid large intake of vitamin-K containing foods diet. (Same As: Coumadin) lisinopril 2.5 mg, 1 tab, Inactive [place] 02/05[facility] Route: PO, Drug 2012 Medical form: TAB, Daily, Center Dosing Weight 65.005, kg, Start date: 02/05/13 12:00:00, Duration: 30 day, Stop date: 03/07/13 9:00:00(Same as: Prinivil) lisinopril 2.5 2.5 mg=1 tab, PO, Active [place] 02/05[facility] mg oral tablet Daily, # 30 tab, 2013 Medical 0 Refill(s), Center other warfarin 2 mg 2 mg=1 tab, PO, Active [place] 02/05[facility] oral tablet Daily, # 30 tab, 2013 Medical 0 Refill(s), Center other docusate sodium 100 mg=10 mL, PO, Active [place] 02/05[facility] 150 mg/15 mL Q12H, # 30 mL, 0 2012 Medical oral liquid Refill(s), other Center DuoNeb 3 mL, INHALATION, Active [place] 02/05[facility] inhalation RTID, # 90 mL, 0 2012 Medical solution Refill(s), other Center atorvastatin 80 80 mg=1 tab, PO, Active [place] 02/05[facility] mg oral tablet QPM, # 30 tab, 0 2012 Medical Refill(s), other Center acetaminophen 650 mg=2 tab, PO, Active [place] 02/05[facility] 325 mg oral Q4H, Pain, # 30 2013 Medical tablet tab, 0 Refill(s), Center other AMIODarone 200 200 mg=1 tab, PO, Active [place] 02/05[facility] mg oral tablet Daily, # 30 tab, 2013 Medical 0 Refill(s), Center other warfarin 2.5 mg, 1 tab, Inactive [facility] 02/04[facility] Route: PO, Drug ntreras 2012 Medical form: TAB, Q5PM, Center Dosing Weight 65.005, kg, Start date: 02/04/13 17:00:00, Duration: 1 doses or times, Stop date: 02/04/13 17:00:00Nurse to ensure documentation of patient education per anticoagulation policy. Avoid large intake of vitamin-K containing foods diet. (Same As: Coumadin) Lasix 20 mg, 1 tab, Inactive [place] 02/03[facility] Route: PO, Drug 2012 Medical form: TAB, ONCE, Center Dosing Weight 65.005, kg, Priority: NOW, Start date: 02/02/13 18:50:00, Stop date: 02/02/13 18:50:00(Same as: Lasix) May cause GI upset. Give with food or milk. [place] 5/325 1 tab, Route: PO, No Longer [place] 02/02[facility] oral tablet Drug Form: TAB, Active 2012 Medical Dosing Weight Center 65.005, kg, Q6H, PRN Pain, Start date: 02/02/13 16:17:00, Duration: 30 day, Stop date: 03/04/13 16:16:00(Same as: [place] 325/5) Do not exceed 4gm/day of acetaminophen. Tylenol 650 mg, 2 tab, No Longer [place] 02/02[facility] Route: PO, Drug Active 2012 Medical form: TAB, Q4H, Center Dosing Weight 65.005, kg, PRN Pain, Start date: 02/02/13 16:17:00, Duration: 30 day, Stop date: 03/04/13 16:16:00Do not exceed 4 gm/day. (Same as: Tylenol) DuoNeb 3 mL, Route: No Longer [place] 02/02[facility] inhalation INHALATION, Drug Active 2012 Medical solution Form: SOLN, Center Dosing Weight 65.005, kg, RTID, Start date: 02/02/13 14:00:00, Duration: 30 day, Stop date: 03/04/13 8:00:00(Same as: Duoneb) DuoNeb 3 ml, Route: No Longer [place] [id number] inhalation INHALATION, Drug Active 2012 Medical solution Form: SOLN, Center Dosing Weight 65.005, kg, PRN, PRN Respiratory Protocol, Start date: 02/02/13 9:04:00, Duration: 30 day, Stop date: 03/04/13 9:03:00(Same as: Duoneb) Heparin 40 Pharmacy To Inactive [place] [id number] unit/kg Bolus Manage, Route: 2012 Medical (Heparin Dosing IVP, PRN, Drug Center Weight) form: INJ, PRN, Heparin Protocol, Start date: 02/02/13 7:46:00 Stop date: 03/04/13 7:45:00, 30 day heparin 500 mL, Rate: Inactive [facility] additive 25,000 14.3 ml/hr, ntreras 2012 Medical [...] day warfarin 5 mg, 1 tab, Inactive [employer] Route: PO, Drug ntreras 2012 Medical form: TAB, Q5PM, Center Dosing Weight 65.005, kg, Start date: 02/01/13 17:00:00, Duration: 1 doses or times, Stop date: 02/01/13 17:00:00Nurse to ensure documentation of patient education per anticoagulation policy. Avoid large intake of vitamin-K containing foods diet. (Same As: Coumadin) warfarin 5 mg, 1 tab, Inactive [facility] Route: PO, Drug ntr[place]town[place] 2012 Medical form: TAB, Q5PM, Center Dosing Weight 65.005, kg, Start date: 01/31/13 17:00:00, Duration: 1 doses or times, Stop date: 01/31/13 17:00:00Nurse to ensure documentation of patient education per anticoagulation policy. Avoid large intake of vitamin-K containing foods diet. (Same As: Coumadin) warfarin 5 mg, 1 tab, Inactive [facility] 01/30[facility] Route: PO, Drug ntreras 2012 Medical form: TAB, Q5PM, Center Dosing Weight 65.005, kg, Start date: 01/30/13 17:00:00, Duration: 1 doses or times, Stop date: 01/30/13 17:00:00Nurse to ensure documentation of patient education per anticoagulation policy. Avoid large intake of vitamin-K containing foods diet. (Same As: Coumadin) Aspirin Low 81 mg=1 tab, PO, No Longer [facility] Dose 81 mg oral Daily, 0 Active 2012 Medical tablet Refill(s) Center lisinopril 5 mg, Route: PO, Inactive [facility] Drug form: TAB, 2012 Medical Daily, Dosing Center Weight 65.005, kg, Start date: 01/29/13 9:00:00, Duration: 30 day, Stop date: 02/27/13 9:00:00 gabapentin 300 300 mg, 1 cap, No Longer Pérez [facility] mg oral capsule Route: PO, Drug Active 2012 Medical form: CAP, TID, Center Dosing Weight 65.005, kg, Start date: 01/29/13 9:00:00, Duration: 30 day, Stop date: 02/27/13 17:00:00(Same as: Neurontin) heparin 500 mL, Rate: No Longer [place] additive 25,000 16.69 ml/hr, Active 2012 Medical unit [14 Infuse over: 30 Center unit/kg/hr] + hr, Route: IV, Premix Diluent Dosing Weight Dextrose 5% 500 59.62 kg, Total mL Volume: 500 mL, Start date: 01/28/13 15:25:00, Duration: 30 day, Stop date: 02/27/13 15:24:00 lisinopril 5 mg 5 mg=1 tab, PO, No Longer [facility] oral tablet Daily, # 30 tab, Active 2012 Medical 0 Refill(s) Center gabapentin 300 300 mg=1 cap, PO, Active [facility] mg oral capsule TID, # 90 cap, 0 2012 Medical Refill(s) Center simvastatin 20 20 mg=1 tab, PO, No Longer [facility] mg oral tablet Bedtime, # 30 Active 2012 Medical tab, 0 Refill(s) Center AMIODarone 200 0 Refill(s) No Longer [facility] mg oral tablet Active 2012 Medical Center AMIODarone 200 mg, 1 tab, No Longer [facility] Route: PO, Drug Active bella 2012 Medical form: TAB, Daily, Center Dosing Weight 65.005, kg, Start date: 01/28/13 9:00:00, Duration: 30 day, Stop date: 02/26/13 9:00:00(Same as: Cordarone) magnesium 2 gm, 50 mL, Inactive [facility] 01/28[facility] sulfate Route: IVPB, Drug 2012 Medical form: INJ, ONCE, Center Start date: 01/28/13 7:00:00, Stop date: 01/28/13 7:00:00 potassium 40 mEq, 30 mL, Inactive [facility] chloride Route: [place], Drug 2012 Medical form: LIQ, ONCE, Center Start date: 01/28/13 7:00:00, Stop date: 01/28/13 7:00:00(Same as: Potassium Chloride) NS (Bolus) IV 500 mL, Rate: 500 Inactive [place] 01/28[facility] 500 mL ml/hr, Infuse 2012 Medical over: 1 hr, Center Route: IV, Dosing Weight 65.005 kg, Total Volume: 500, Priority: STAT, Start date: 01/28/13 5:08:00, Duration: 1 doses or times, Stop date: 01/28/13 6:07:00, Bolus DoseBolus Dose insulin regular 7 unit, 0.07 mL, No Longer [place] 01/28[facility] 100 units/mL Route: SUB-Q, Active 2012 [...] 25 gm, 50 mL, No Longer [place] 01/28[facility] Syringe Route: IVP, Drug Active 2012 Medical Form: INJ, Dosing Center Weight 65.005, kg, PRN, PRN Abnormal Lab Result, Start date: 01/28/13 5:06:00, Duration: 30 day, Stop date: 02/27/13 5:05:00 albumin human 25 gm, 500 mL, Inactive Willie [facility] 5% intravenous 500 ml/hr, Route: 2012 Medical solution IV, Drug Form: Center INJ, Dosing Weight 65.005, kg, ONCE, Start date: 01/28/13 3:44:00, Stop date: 01/28/13 3:44:00LOT#: Mfg: ___ (Same as: Albuminar) "blood product derivative" NS (Bolus) IV 500 mL, Rate: 500 Inactive Willie [facility] 500 mL ml/hr, Infuse 2012 Medical over: 1 hr, Center Route: IV, Dosing Weight 65.005 kg, Total Volume: 500, Priority: STAT, Start date: 01/28/13 0:45:00, Duration: 1 doses or times, Stop date: 01/28/13 1:44:00, Bolus DoseBolus Dose ibuprofen 600 mg, 1 tab, No Longer [facility] Route: PO, Drug Active bella 2012 Medical form: TAB, Q6H, Center Dosing Weight 65.005, kg, PRN Pain, Start date: 01/27/13 11:03:00, Duration: 30 day, Stop date: 02/26/13 11:02:00(Same as: Motrin) "Do Not Crush" Take with food. docusate 100 mg, 10 mL, No Longer Grotta [facility] Route: PO, Drug Active 2012 Medical form: LIQ, Q12H, Center Start date: 01/26/13 21:30:00, Duration: 30 day, Stop date: 02/25/13 21:00:00(Same as: Colace) Saline Flush 5 ml, Route: No Longer Baker [facility] 0.9% MISC, Drug Form: Active 2012 Medical INJ, Dosing Center Weight 66, kg, Q12H, Start date: 01/26/13 21:00:00, Duration: 30 day, Stop date: 02/25/13 9:00:00(Same as: BD Posiflush) docusate 100 mg, 1 cap, Inactive [facility] Route: PO, Drug bella 2012 Medical form: CAP, Q12H, Center Dosing Weight 65.005, kg, Start date: 01/26/13 21:00:00, Duration: 30 day, Stop date: 02/25/13 9:00:00(Same as: Colace) (Do Not Crush) Omnipaque 85 mL, Route: Inactive Samuel Delia 350mg/ml IVP, Drug Form: 2012 Medical SOLN, Dosing Center Weight 65.005, kg, ONCALL, STAT, Start date: 01/26/13 19:56:00, Duration: 1 doses or times, Dose=2.2ml/kg, Max [id number] -- "To be infused by Radiology Staff ONLY"Dose=2.2ml/k g, Max [id number] -- "To be infused by Radiology Staff ONLY" Versed 2 mg, 2 mL, Inactive Willie [facility] Route: IVP, Drug 2012 Medical form: INJ, ONCE, Center Dosing Weight 65.005, kg, Start date: 01/26/13 19:17:00, Stop date: 01/26/13 19:17:00, aggitation in MRi(Same as: Versed) Omnipaque 85 mL, Route: Inactive Pérez Delia 350mg/ml IVP, Drug Form: 2012 Medical SOLN, Dosing Center Weight 65.005, kg, ONCALL, STAT, Start date: 01/26/13 17:39:00, Duration: 1 doses or times, Dose=2.2ml/kg, Max [id number] -- "To be infused by Radiology Staff ONLY"Dose=2.2ml/k g, Max [id number] -- "To be infused by Radiology Staff ONLY" Lipitor 80 mg, 1 tab, No Longer Samuel Delia Route: PO, Drug Active 2012 Medical form: TAB, QPM, Center Dosing Weight 66, kg, Start date: 01/26/13 17:00:00, Duration: 30 day, Stop date: 02/24/13 17:00:00Same as Lipitor Artificial 1 drp, Route: No Longer [facility]os[facility] Tears Each Affected Active bella 2012 Medical Eye, TID, Drug Center form: SOLN, Start date: 01/26/13 17:00:00, Duration: 30 day, Stop date: 02/25/13 13:00:00 normal saline 1,000 mL, Rate: No Longer [place] 0.9% IV 1000 mL 75 ml/hr, Infuse Active 2012 Medical over: 13.3 hr, Center Route: IV, Dosing Weight 65.005 kg, Total Volume: 1,000, Start date: 01/26/13 16:26:00, Duration: 30 day, Stop date: 02/25/13 16:25:00 labetalol 10 mg, 2 mL, No Longer [facility] Route: IVP, Drug Active 2012 Medical form: INJ, Center Q15Min, Dosing Weight 65.005, kg, PRN Hypertension, Start date: 01/26/13 16:21:00, Duration: 30 day, Stop date: 02/25/13 16:20:00 heparin 5,000 unit, 1 mL, No Longer Santoro [facility] Route: SUB-Q, Active 2012 Medical Drug form: INJ, Center Q8H, Dosing Weight 66, kg, Start date: 01/26/13 16:00:00, Duration: 30 day, Stop date: 02/25/13 8:00:00porcine heparin Saline Flush 5 ml, Route: IVP, No Longer [facility] 0.9% Drug Form: INJ, Active bella2012 Medical Dosing Weight Center 65.005, kg, PRN, PRN Line Flush, Start date: 01/26/13 15:45:00, Duration: 30 day, Stop date: 02/25/13 15:44:00(Same as: BD Posiflush) bisacodyl 10 mg, 1 supp, No Longer [facility] Route: HI, Drug Active 2012 Medical form: SUPP, Center [...] Longer [place] PO, Drug Form: Active 2011 [facility] PDR/REC, ONCE, Start date: 07/10/11 11:00:00, Stop date: 07/10/11 11:00:00 Aldactone 25 mg, 1 tab, PO No Longer [place] Route: PO, Drug Active 2011 [facility] form: TAB, Daily, Start date: 07/10/11 9:00:00, Duration: 30 day, Stop date: 08/08/11 9:00:00 hydrALAZINE 25 50 mg, 2 tab, PO No Longer [place] 07/09/ MH mg oral tablet Route: PO, Drug Active 2011 [facility] form: TAB, TID, Start date: 07/10/11 9:00:00, Duration: 30 day, Stop date: 08/08/11 17:00:00 Lopressor 12.5 mg, 0.5 tab, PO No Longer [place] Route: PO, Drug Active 2011 [facility] form: TAB, BID, Start date: 07/10/11 9:00:00, Duration: 30 day, Stop date: 08/08/11 17:00:00 Prinivil 10 mg, 1 tab, PO No Longer [place] Route: PO, Drug Active 2011 [facility] form: TAB, Daily, Start date: 07/10/11 9:00:00, Duration: 30 day, Stop date: 08/08/11 9:00:00 Monoket 20 mg, 1 tab, PO No Longer [place] Route: PO, Drug Active 2011 [facility] form: TAB, TID, Start date: 07/10/11 9:00:00, Duration: 30 day, Stop date: 08/08/11 17:00:00 Carafate 1 gm, 1 tab, PO No Longer [place] Route: PO, Drug Active 2011 [facility] form: TAB, QID-Before Meals, Start date: 07/09/11 21:00:00, Duration: 30 day, Stop date: 08/08/11 16:30:00 Zocor 20 mg, 1 tab, PO No Longer [place] Route: PO, Drug Active 2011 [facility] form: TAB, Bedtime, Start date: 07/09/11 21:00:00, Duration: 30 day, Stop date: 08/07/11 21:00:00 insulin regular 5 unit, 0.05 mL, SUB-Q No Longer [place] human Route: SUB-Q, Active 2011 [facility] recombinant 100 Drug form: SOLN, units/mL ONCALL, Start injectable date: 07/09/11 solution 18:00:00, Duration: 30 day, Stop date: 08/08/11 17:59:00 Protonix 40 mg, Route: IVP No Longer [place] IVP, Drug form: Active 2011 [facility] INJ, Q12H, Start date: 07/09/11 17:47:00, Duration: 30 day, Stop date: 08/08/11 9:00:00 Tylenol 650 mg, 2 tab, PO No Longer [place] Route: PO, Drug Active 2011 [facility] form: TAB, Q4H, PRN Pain/Fever, Start date: 07/09/11 17:44:00, Duration: 30 day, Stop date: 08/08/11 17:43:00 Restoril 15 mg, 1 cap, PO No Longer [place] Route: PO, Drug Active 2011 [facility] form: CAP, Bedtime, PRN Sleep, Start date: 07/09/11 17:44:00, Duration: 30 day, Stop date: 08/08/11 17:43:00 BD Normal 10 mL, Route: IVP No Longer [place] Saline Flush IVP, Drug Form: [facility] 2011 [facility] INJ, PRN, PRN Line Flush, Start date: 07/09/11 17:43:00, Duration: 30 day, Stop date: 08/08/11 17:42:00 Sodium Chloride 250 mL, Route: IVPB No Longer [place] 0.9% IV IVPB, Start date: Active 2011 [facility] 07/09/11 17:43:00, Duration: 30 day, Stop date: 08/08/11 17:42:00, PRN Line Flush K-Dur 20 40 mEq, 2 tab, PO No Longer Sergei Route: PO, Drug Active 2011 [facility] form: ERTAB, ABXQ6H, Start date: 07/07/11 14:00:00, Duration: 2 doses or times, Stop date: 07/07/11 20:00:00 phytonadione 10 mg, 1 mL, IV No Longer Kg Route: IV, Drug Active 2011 [facility] form: INJ, ONCE, Start date: 07/07/11 14:00:00, Stop date: 07/07/11 14:00:00 Benadryl 25 mg, 1 cap, PO No Longer Sergei Route: PO, Drug Active 2011 [facility] form: CAP, ONCALL, Start date: 07/07/11 13:00:00, Duration: 30 day, Stop date: 08/06/11 12:59:00 Tylenol 650 mg, 2 tab, PO No Longer Sergei Route: PO, Drug Active 2011 [facility] form: TAB, ONCALL, Start date: 07/07/11 13:00:00, Duration: 30 day, Stop date: 08/06/11 12:59:00 Lasix 20 mg, 2 mL, IV No Longer Sergei Route: IV, Drug Active 2011 [facility] form: INJ, ONCALL, Start date: 07/07/11 13:00:00, Duration: 30 day, Stop date: 08/06/11 12:59:00 calcium 1,000 mg, 10 mL, IVPB No Longer Paz gluconate Route: IVPB, Active 2011 [facility] ONCE, Start date: 07/07/11 9:30:00, Stop date: 07/07/11 9:30:00 Prinivil 10 mg, 1 tab, PO No Longer Kg Route: PO, Drug Active 2011 [facility] form: TAB, Daily, Start date: 07/07/11 9:00:00, Duration: 30 day, Stop date: 08/05/11 9:00:00 Aldactone 25 mg, 1 tab, PO No Longer Kg Route: PO, Drug Active 2011 [facility] form: TAB, Daily, Start date: 07/07/11 9:00:00, Duration: 30 day, Stop date: 08/05/11 9:00:00 Sodium Chloride 1,000 mL, Rate: IV No Longer Sergei 0.9% IV 1,000 60 ml/hr, Infuse Active 2011 [facility] mL over: 16.7 hr, Route: IV, Dosing Weight 67.7 kg, Total Volume: 1,000, Start date: 07/07/11 8:39:00, Duration: 30 day, Stop date: 08/06/11 8:38:00 Zocor 20 mg, 1 tab, PO No Longer Kg Route: PO, Drug Active 2011 [facility] form: TAB, Bedtime, Start date: 07/06/11 21:00:00, Duration: 30 day, Stop date: 08/04/11 21:00:00 hydrALAZINE 50 100 mg, 2 tab, PO No Longer Kg mg oral tablet Route: PO, Drug Active 2011 [facility] form: TAB, Q8H, Start date: 07/06/11 18:00:00, Duration: 30 day, Stop date: 08/05/11 16:00:00 Neurontin 300 mg, 1 cap, PO No Longer Kg Route: PO, Drug Active 2011 [facility] form: CAP, TID, Start date: 07/06/11 18:00:00, Duration: 30 day, Stop date: 08/05/11 17:00:00 isosorbide 20 mg, 1 tab, PO No Longer Kg dinitrate Route: PO, Drug Active 2011 [facility] form: TAB, Q8H, Start date: 07/06/11 18:00:00, Duration: 30 day, Stop date: 08/05/11 16:00:00 metoprolol 12.5 mg, 0.5 tab, PO No Longer Mushtaq Route: PO, Drug Active 2011 [facility] form: ERTAB, Daily, Start date: 07/06/11 9:00:00, Stop date: 08/04/11 9:00:00 Protonix 40 mg, Route: IVP No Longer Kg IVP, Drug form: Active 2011 [facility] INJ, Q12H, Start date: 07/05/11 21:00:00, Duration: 30 day, Stop date: 08/04/11 9:00:00 glucagon 1 mg, Route: IV, IV No Longer Kg Drug form: Active 2011 [facility] PDR/INJ, PRN, PRN Blood Glucose Results, Start date: 07/05/11 18:38:00, Duration: 30 day, Stop date: 08/04/11 18:37:00 Dextrose 50% in 50 mL, Route: IVP No Longer Kg Water IV IVP, Start date: Active 2011 [facility] 07/05/11 18:38:00, Duration: 30 day, Stop date: 08/04/11 18:37:00, PRN Blood Glucose Results NovoLog FlexPen 4 unit, 0.04 mL, SUB-Q No Longer Kg Route: SUB-Q, Active 2011 [facility] Drug form: SOLN, Sliding Scale, PRN Blood Glucose Results, Start date: 07/05/11 18:38:00, Duration: 30 day, Stop date: 08/04/11 18:37:00 Carafate 1 gm, 10 mL, PO No Longer Kg Route: PO, Drug Active 2011 [facility] form: SUSP, TID-Before Meals, Start date: 07/05/11 16:30:00, Duration: 30 day, Stop date: 08/04/11 11:30:00 Carafate 1 gm, 10 mL, PO No Longer Kg Route: PO, Drug Active 2011 [facility] form: SUSP, ONCE, Start date: 07/05/11 14:13:00, Stop date: 07/05/11 14:13:00 Dextrose 50% in 50 mL, Route: IVP No Longer Kg Water IV IVP, Start date: Active 2011 [facility] 07/04/11 23:20:00, Duration: 30 day, Stop date: 08/03/11 23:19:00, PRN Blood Glucose Results NovoLog FlexPen 8 unit, 0.08 mL, SUB-Q No Longer Kg Route: SUB-Q, Active 2011 [facility] Drug form: SOLN, Sliding Scale, PRN Blood Glucose Results, Start date: 07/04/11 23:20:00, Duration: 30 day, Stop date: 08/03/11 23:19:00 glucagon 1 mg, Route: IV, IV No Longer Kg Drug form: Active 2011 [facility] PDR/INJ, PRN, PRN Blood Glucose Results, Start date: 07/04/11 23:20:00, Duration: 30 day, Stop date: 08/03/11 23:19:00 Lasix 40 mg, 4 mL, IV No Longer Kg Route: IV, Drug Active 2011 [facility] form: INJ, ONCALL, Start date: 07/04/11 19:00:00, Duration: 2 doses or times morphine 2 mg, 0.4 mL, IV No Longer Kg Sulfate Route: IV, Drug Active 2011 [facility] form: INJ, Q3H, PRN Pain, Start date: 07/04/11 18:26:00, Duration: 30 day, Stop date: 08/03/11 18:25:00 nitroglycerin 0.5 inch, Route: TOP No Longer Sergei 2% topical TOP, Drug form: Active 2011 [facility] ointment OINT, ONCE, Start date: 07/04/11 16:35:00, Stop date: 07/04/11 16:35:00 nitroglycerin 0.4 mg, 1 tab, SL No Longer Sergei 0.4 mg Route: SL, Drug Active 2011 [facility] sublingual form: TAB, ONCE, tablet Start date: 07/04/11 16:35:00, Stop date: 07/04/11 16:35:00 BD Normal 10 mL, Route: IVP No Longer Jeremi Saline Flush IVP, Drug Form: Active 2011 [facility] INJ, Q8H, Start date: 07/04/11 16:00:00, Duration: 30 day, Stop date: 08/03/11 8:00:00 BD Normal 10 mL, Route: IVP No Longer Jeremi Saline Flush IVP, Drug Form: Active 2011 [facility] INJ, PRN, PRN Line Flush, Start date: 07/04/11 11:39:00, Duration: 30 day, Stop date: 08/03/11 11:38:00 Sodium Chloride 250 mL, Route: IVPB No Longer Kg 0.9% IV IVPB, Start date: Active 2011 [facility] 07/04/11 11:38:00, Duration: 30 day, Stop date: 08/03/11 11:37:00, PRN Line Flush Kayexalate 15 gm, 60 mL, PO No Longer Kg Route: PO, Drug Active 2011 [facility] form: SUSP, ONCE, Start date: 07/04/11 11:01:00, Stop date: 07/04/11 11:01:00 phytonadione 10 mg, 1 mL, SUB-Q No Longer Sergei Route: SUB-Q, Active 2011 [facility] Drug form: INJ, BID, Start date: 07/04/11 11:00:00, Duration: 3 doses or times, Stop date: 07/05/11 11:00:00 Lasix 20 mg, 2 mL, IV No Longer Kg Route: IV, Drug Active 2011 [facility] form: INJ, After Transfusion, PRN See Nurse's Notes, Start date: 07/04/11 10:51:00, Stop date: 07/04/11 23:00:00 octreotide 247.5 mL, Rate: IV No Longer Kg 1,250 microgram 10 ml/hr, Infuse Active 2011 [facility] + Sodium over: 25 hr, Chloride 0.9% Route: IV, Dosing IV 247.5 mL Weight 67.7 kg, Total Volume: 250, Start date: 07/04/11 5:44:00, Duration: 30 day, Stop date: 08/03/11 5:43:00 pantoprazole 80 100 mL, Rate: 10 IV No Longer Kg mg + Sodium ml/hr, Infuse Active 2011 [facility] Chloride 0.9% over: 10 hr, IV 100 mL Route: IV, Dosing Weight 67.7 kg, Total Volume: 100, Start date: 07/04/11 5:44:00, Duration: 30 day, Stop date: 08/03/11 5:43:00 Benadryl 25 mg, 1 cap, PO No Longer Kg Route: PO, Drug Active 2011 [facility] form: CAP, Q6H, PRN See Nurse's Notes, Start date: 07/04/11 5:43:00, Duration: 30 day, Stop date: 08/03/11 5:42:00 morphine 2 mg, 0.4 mL, IV No Longer Kg Sulfate Route: IV, Drug Active 2011 [facility] form: INJ, Q4H, PRN Pain, Start date: 07/04/11 5:43:00, Duration: 30 day, Stop date: 08/03/11 5:42:00 Restoril 15 mg, 1 cap, PO No Longer Kg Route: PO, Drug Active 2011 [facility] form: CAP, Bedtime, PRN Sleep, Start date: 07/04/11 5:43:00, Duration: 30 day, Stop date: 08/03/11 5:42:00 Zofran 4 mg, 2 mL, IVP No Longer Kg Route: IVP, Drug Active 2011 [facility] form: INJ, Q8H, PRN Nausea, Start date: 07/04/11 5:42:00, Duration: 30 day, Stop date: 08/03/11 5:41:00 acetaminophen-h 1 tab, Route: PO, PO No Longer Kg ydrocodone 325 Drug Form: TAB, Active 2011 [facility] mg-5 mg oral Q6H, PRN Pain, tablet Start date: 07/04/11 5:42:00, Duration: 30 day, Stop date: 08/03/11 5:41:00 Tylenol 650 mg, 1 supp, HI No Longer Kg Route: HI, Drug Active 2011 [facility] form: SUPP, Q4H, PRN Pain/Fever, Start date: 07/04/11 5:42:00, Duration: 30 day, Stop date: 08/03/11 5:41:00 Sodium Chloride 500 mL, Rate: IV No Longer [facility] 0.9% IV 500 mL bolus, Route: IV, Active 2011 [facility] Dosing Weight 67.7 kg, Total Volume: 500, Start date: 07/04/11 5:41:00, Duration: 1 hr, Stop date: 07/04/11 6:40:00 Sodium Chloride 1,000 mL, Rate: IV No Longer [facility] 0.9% IV 1,000 125 ml/hr, Infuse Active 2011 [facility] mL over: 8 hr, Route: IV, Dosing Weight 67.7 kg, Total Volume: 1,000, Start date: 07/04/11 5:24:00, Duration: 30 day, Stop date: 08/03/11 5:23:00 Allergies, Adverse Reactions, Alerts Substance Category Reaction Severity Reaction Status Date Comments Source type Reported PHENobarbital drug Allergy [facility] Immunizations Immunization Date Given Site Status Last Updated Comments Source Results Order Name Results Value Reference Date Interpretation Comments Source Range BEDSIDE Glucose POC 161 mg/dL 70 - 99 02/05 SD 2Interpretive [facility] GLUCOSE Data: [facility] TESTING Center Upper Reportable Limit: 200 mg/dL. BEDSIDE Glucose POC 114 mg/dL 70 - 99 02/05 SD 3Interpretive [facility] GLUCOSE Data: [facility] TESTING Center Upper Reportable Limit: 200 mg/dL. CHEMISTRY AGAP 15.5 meq/L 10.0 - 02/05 Normal [facility] 20.0 [facility] CHEMISTRY Calcium Lvl 8.0 mg/dL 8.5 - 10.5 02/05 LOW [facility]2012 [facility] CHEMISTRY CO2 24 meq/L 24 - 32 02/05 Normal [facility]2012 [facility] CHEMISTRY Chloride Lvl 103 meq/L 95 - 109 02/05 Normal [facility]2012 [facility] CHEMISTRY eGFR 60 02/05 5Result Comment: The eGFR is calculated using the CKD-EPI formula. In most young, healthy individuals the eGFR will be >90 mL/ min/1.73m2. The eGFR declines with age. An eGFR of 60-89 may be normal in [facility] mL/min/1. some populations, particularly the elderly, for whom the CKD-EPI formula has not been extensively validated. Use of the eGFR is not recommended in the following populations: [place] [address] Center Individuals with unstable creatinine concentrations, including [...] 4.5 meq/L 3.5 - 5.1 02/05 Normal [facility] Lvl [facility] CHEMISTRY Sodium Lvl 138 meq/L 135 - 145 02/05 Normal [facility] CHEMISTRY Creatinine 0.9 mg/dL 0.5 - 1.4 02/05 Normal [facility] Lvl [facility] CHEMISTRY BUN 15 mg/dL 7 - 22 02/05 Normal [facility] CHEMISTRY Glucose Lvl 115 mg/dL 70 - 99 02/05 SD 8Interpretive Data: Adult reference range values reflect the clinical guidelines of the [place] [employer]. [facility] HEMATOLOGY Platelet 407 K/CMM 133 - 450 02/05 Normal [facility] HEMATOLOGY MPV 9.0 fL 7.4 - 10.4 02/05 [facility] HEMATOLOGY RDW 14.6 % 11.5 - 02/05 [facility] 14.5 [facility] HEMATOLOGY Hct 26.0 % 36.0 - 02/05 LOW [facility] 48.0 [facility] HEMATOLOGY MCV 103.1 fL 81.0 - 02/05 [facility] [place] 99.0 [facility] HEMATOLOGY MCH 34.2 pg 27.0 - 02/05 [facility] [place] 31.0 [facility] HEMATOLOGY MCHC 33.2 g/dL 32.0 - 02/05 Normal [facility] 36.0 [facility] HEMATOLOGY Hgb 8.6 g/dL 12.0 - 02/05 [facility] [place] 16.0 [facility] HEMATOLOGY WBC X 10x3 10.5 K/CMM 3.7 - 10.4 02/05 [facility] HEMATOLOGY RBC X 10x6 2.53 M/CMM 4.20 - 02/05 [facility] [place] 5.40 /2012 [facility] HEMATOLOGY INR 2.72 0.85 - 02/05 SD 12Interpretive Data: RECOMMENDED RANGES FOR PROTIME INR: [facility] 1. 2.0-3.0 for most medical and surgical thromboembolic states. [facility] 2.5-3.5 for artificial heart valves and recurrent embolism. Center INR SHOULD BE USED ONLY FOR PATIENTS ON STABLE ANTICOAGULANT THERAPY. HEMATOLOGY PROTIME 28.3 s 12.0 - 02/05 [facility] 14.7 /2012 [facility] BEDSIDE Glucose POC 94 mg/dL 70 - 99 02/05 Normal 4Interpretive [facility] GLUCOSE Data: Medical TESTING Center Upper Reportable Limit: 200 mg/dL. URINALYSIS UA Sq Epi None Seen 02/04 [facility] URINALYSIS UA <=1.0 0.1 - 1.0 02/04 [facility] Urobilinogen mg/dL [facility] URINALYSIS UA RBC null 0 - 2 02/04 Normal [facility] URINALYSIS UA WBC 1 /HPF 0 - 5 02/04 Normal [facility] URINALYSIS UA Hyal Cast 1 /LPF 0 - 2 02/04 Normal [facility] URINALYSIS UA Mucus Few /LPF None Seen 02/04 [facility] URINALYSIS UA Bacteria Occasional None Seen 02/04 [facility] URINALYSIS UA Protein Negative Negative 02/04 Normal [facility] mg/dL [facility] URINALYSIS UA Glucose Negative Negative 02/04 [facility] mg/dL [facility] URINALYSIS UA Bili Negative Negative 02/04 [facility] *NA* [place] (02/04/2013 14:11:01) URINALYSIS UA Ketones Negative Negative 02/04 [facility] mg/dL [facility] URINALYSIS UA Leuk Est Negative Negative 02/04 Normal [facility] (02/04/2013 14:11:01) [place] URINALYSIS UA Blood Negative Negative 02/04 Normal [facility] (02/04/2013 14:11:01) [place] URINALYSIS UA Nitrite Negative Negative 02/04 Normal [facility] (02/04/2013 14:11:01) [place] URINALYSIS UA pH 5.5 5.0 - 8.0 02/04 Normal [facility] URINALYSIS UA Turbidity Clear Clear 02/04 Normal Medical (02/04/2013 14:11:01) Center URINALYSIS UA Color Yellow Yellow 02/04 Medical *NA* Center (02/04/2013 14:11:01) URINALYSIS UA Spec Grav 1.012 <=1.030 02/04 Normal [facility] HEMATOLOGY INR 2.62 0.85 - 02/04 HI 13Interpretive Data: RECOMMENDED RANGES FOR PROTIME INR: [facility] 1. 2.0-3.0 for most medical and surgical thromboembolic states. Medical 2.5-3.5 for artificial heart valves and recurrent embolism. Center INR SHOULD BE USED ONLY FOR PATIENTS ON STABLE ANTICOAGULANT THERAPY. HEMATOLOGY aPTT 64.3 s 22.9 - 02/04 SD 15Interpretiv [facility] 35.8 e Data: [facility] Therapeutic Range: 57 - 92 Seconds HEMATOLOGY PROTIME 27.5 s 12.0 - 02/04 [facility] 14. [facility] Chest 2 Chest 2 CHEST 2 VIEWS dated 2013-02-04 11:37:00 02/04 - [facility] views /2012 - [facility] COMPARISON: February 02, 2013 Read by: [...] eGFR of 60-89 may be normal in [facility] mL/min/1. some populations, particularly the elderly, for whom the CKD-EPI formula has not been extensively validated. Use of the eGFR is not recommended in the following populations: Medical 3m2 Center Individuals with unstable creatinine concentrations, including [...] Lvl 112 mg/dL 70 - 99 02/04 SD 9Interpretive Data: Adult reference range values reflect the clinical guidelines of the [place] [employer]. [facility] CHEMISTRY Calcium Lvl 8.2 mg/dL 8.5 - 10.5 02/04 LOW [facility] CHEMISTRY AGAP 14.8 meq/L 10.0 - 02/04 Normal [facility] 20. [facility] CHEMISTRY Chloride Lvl 105 meq/L 95 - 109 02/04 Normal [facility] CHEMISTRY Potassium 3.8 meq/L 3.5 - 5.1 02/04 Normal [facility] CHEMISTRY CO2 25 meq/L 24 - 32 02/04 Normal [facility] CHEMISTRY BUN 15 mg/dL 7 - 22 02/04 Normal [facility] CHEMISTRY Sodium Lvl 141 meq/L 135 - 145 02/04 Normal [facility] CHEMISTRY Creatinine 0.8 mg/dL 0.5 - 1.4 02/04 Normal [facility] CHEMISTRY Folate Lvl 31.1 ng/mL >=3.0 02/04 Normal [facility] HEMATOLOGY Platelet 424 K/CMM 133 - 450 02/04 Normal [facility] HEMATOLOGY MPV 9.1 fL 7.4 - 10.4 02/04 Normal [facility] HEMATOLOGY Hgb 9.5 g/dL 12.0 - 02/04 LOW [facility] 16.0 [facility] HEMATOLOGY WBC X 10x3 12.0 K/CMM 3.7 - 10.4 02/04 [facility] HEMATOLOGY RBC X 10x6 2.79 M/CMM 4.20 - 02/04 [facility] 5.40 [facility] HEMATOLOGY RDW 14.3 % 11.5 - 02/04 [facility] 14.5 [facility] HEMATOLOGY MCV 102.0 fL 81.0 - 02/04 [facility] 99.0 [facility] HEMATOLOGY MCHC 33.2 g/dL 32.0 - 02/04 Normal [facility] 36.0 [facility] HEMATOLOGY Hct 28.5 % 36.0 - 02/04 LOW [facility] 48.0 [facility] HEMATOLOGY MCH 33.9 pg 27.0 - 02/04 [facility] 31.0 [facility] CHEMISTRY BUN 14 mg/dL 7 - 22 02/03 Normal [facility] CHEMISTRY Glucose Lvl 117 mg/dL 70 - 99 02/03 HI 10Interpretive Data: Adult reference range values reflect the clinical guidelines of the [place] [employer]. [facility] CHEMISTRY Creatinine 1.1 mg/dL 0.5 - 1.4 02/03 Normal [facility] CHEMISTRY eGFR 47 02/03 7Result Comment: The eGFR is calculated using the CKD-EPI formula. In most young, healthy individuals the eGFR will be >90 mL/ min/1.73m2. The eGFR declines with age. An eGFR of 60-89 may be normal in [facility] mL/min/1. some populations, particularly the elderly, for whom the CKD-EPI formula has not been extensively validated. Use of the eGFR is not recommended in the following populations: [place] [address] Center Individuals with unstable creatinine concentrations, including [...] 17 meq/L 24 - 32 02/03 LOW [facility] CHEMISTRY Chloride Lvl 118 meq/L 95 - 109 02/03 [facility] CHEMISTRY Calcium Lvl 7.8 mg/dL 8.5 - 10.5 02/03 [facility] CHEMISTRY Potassium 4.3 meq/L 3.5 - 5.1 02/03 Normal [facility] CHEMISTRY Sodium Lvl 149 meq/L 135 - 145 02/03 [facility] CHEMISTRY AGAP 18.3 meq/L 10.0 - 02/03 Normal [facility] 20.0 [facility] HEMATOLOGY INR 3.35 0.85 - 02/03 SD 14Interpretive Data: RECOMMENDED RANGES FOR PROTIME INR: [facility] 1.17 2.0-3.0 for most medical and surgical thromboembolic states. Medical 2.5-3.5 for artificial heart valves and recurrent embolism. Center INR SHOULD BE USED ONLY FOR PATIENTS ON STABLE ANTICOAGULANT THERAPY. HEMATOLOGY PROTIME 33.2 s 12.0 - 02/03 [facility] 14.7 [facility] HEMATOLOGY RDW 18.0 % 11.5 - 02/03 [facility] 14.5 [facility] HEMATOLOGY WBC X 10x3 9.8 K/CMM 3.7 - 10.4 02/03 [facility] HEMATOLOGY RBC X 10x6 2.82 M/CMM 4.20 - 02/03 [facility] 5.40 /2012 [facility] HEMATOLOGY Hct 31.3 % 36.0 - 02/03 [facility] 48.0 /2012 [facility] HEMATOLOGY MCHC 30.9 g/dL 32.0 - 02/03 [facility] 36.0 [facility] HEMATOLOGY Platelet 475 K/CMM 133 - 450 02/03 [facility] /2012 [facility] HEMATOLOGY Hgb 9.7 g/dL 12.0 - 02/03 [facility] 16.0 [facility] HEMATOLOGY MCV 111.1 fL 81.0 - 02/03 [facility] 99.0 /2012 [facility] HEMATOLOGY MCH 34.3 pg 27.0 - 02/03 [facility] 31.0 /2012 [facility] HEMATOLOGY MPV 9.4 fL 7.4 - 10.4 02/03 Normal [facility] HEMATOLOGY Lymphocytes 13.1 % 20.0 - 02/03 [facility] 40.0 /2012 [facility] HEMATOLOGY Monocytes 9.2 % 2.0 - 12.0 02/03 [facility] HEMATOLOGY Basophils 1.1 % 0.0 - 1.0 02/03 [facility] HEMATOLOGY Segs-Bands # 6.5 K/CMM 1.5 - 8.1 02/03 [facility] /2012 [facility] HEMATOLOGY Monocytes # 0.9 K/CMM 0.0 - 0.8 02/03 [facility] HEMATOLOGY Eosinophils 0.9 K/CMM 0.0 - 0.5 02/03 [facility] # /2012 [facility] HEMATOLOGY Lymphocytes 1.3 K/CMM 1.0 - 5.5 02/03 Normal [facility] # /2012 [facility] HEMATOLOGY Basophils # 0.1 K/CMM 0.0 - 0.2 02/03 Normal [facility] HEMATOLOGY Eosinophils 9.6 % 0.0 - 4.0 02/03 HI [facility] HEMATOLOGY Macrocyte 3+ None Seen 02/03 Medical *NA* Center (02/03/2013 02:57:00) HEMATOLOGY Segs 67.0 % 45.0 - 02/03 Normal [facility] 75.0 [facility] CHEMISTRY BE Art -2 mMol/L -2-2 - 2 02/03 Normal [facility] CHEMISTRY HCO3 Art 21 mMol/L 22 - 26 02/03 LOW [facility] CHEMISTRY O2 Sat Art 98.0 % 95.0 - 02/03 Normal [facility] 100.0 [facility] CHEMISTRY pO2 Art 94 mm[Hg] 80 - 100 02/03 Normal [facility] CHEMISTRY pH Art 7.45 7.35 - 02/03 Normal [facility] 7.45 [facility] CHEMISTRY pCO2 Art 30 mm[Hg] 35 - 45 02/03 CRIT 11Result Comment: [facility] CRITICAL Center RESULT CALLED TO HAYDEN WATTS AT 02/02/2013 18:26 BY SXP. READ BACK OK. TEST PERFORMED AT 17.10 P.M. RESULT COULD NOT BE RELEASED DUE TO COMPUTERS DOWN. HEMATOLOGY aPTT 52.7 s 22.9 - 02/02 HI 16Interpretiv [facility] 35.8 /2012 e Data: [facility] Therapeutic Range: 57 - 92 Seconds Chest Chest 1view EXAM: XR CHEST 1 VIEW 02/02 - [facility] - [facility] DATE: Feb 02, 2013 04:01:00 PM [...] 146.0 s 22.9 - 02/02 CRIT 18Interpretiv [facility] 35.8 /2012 e Data: [facility] Therapeutic Range: 57 - 92 Seconds BEDSIDE Gluc POC Notified 02/01 [facility] GLUCOSE Comment 1 RN/ /2012 [facility] HEMATOLOGY Lymphocytes 1.4 K/CMM 1.0 - 5.5 02/01 Normal [facility] # /2012 [facility] HEMATOLOGY Eosinophils 0.7 K/CMM 0.0 - 0.5 02/01 HI [facility] # /2012 [facility] HEMATOLOGY Monocytes # 0.8 K/CMM 0.0 - 0.8 02/01 Normal [facility] HEMATOLOGY Basophils 1.1 % 0.0 - 1.0 02/01 [facility]2012 [facility] HEMATOLOGY Monocytes 9.4 % 2.0 - 12.0 02/01 Normal /2012 [facility] HEMATOLOGY Segs-Bands # 6.0 K/CMM 1.5 - 8.1 02/01 Normal [facility] HEMATOLOGY Eosinophils 7.6 % 0.0 - 4.0 02/01 [facility] /2012 [facility] HEMATOLOGY Basophils # 0.1 K/CMM 0.0 - 0.2 02/01 Normal [facility] HEMATOLOGY Macrocyte 1+ None Seen 02/01 ABN [facility] /2012 [facility] *ABN* [place] (02/01/2013 02:45:00) HEMATOLOGY Lymphocytes 15.2 % 20.0 - 02/01 LOW [facility] 40.0 [facility] HEMATOLOGY Segs 66.7 % 45.0 - 02/01 Normal [facility] 75.0 [facility] Brain wo Brain wo EXAMINATION: CT head without contrast. 01/30 - [facility] contrast contrast CT /2012 - [facility] CT [place] DATE: 01/30/2013. Read by: Teo Shin Dictated [...] 1.8 mg/dL 1.8 - 2.4 01/29 Normal [facility] Lvl [facility] CHEMISTRY Phosphorus 2.5 mg/dL 2.5 - 4.5 01/29 Normal [facility] CHEMISTRY Ca Ion WB 1.06 1.05 - 01/29 Normal [place] mMol/L 1. [facility] CHEMISTRY Ca Norm WB 1.05 1.05 - 01/29 Normal [facility] mMol/L 1. [facility] HEMATOLOGY Basophils 0.9 % 0.0 - 1.0 01/29 Normal [facility] HEMATOLOGY Monocytes # 0.9 K/CMM 0.0 - 0.8 01/29 HI [facility] HEMATOLOGY Segs-Bands # 7.5 K/CMM 1.5 - 8.1 01/29 Normal [facility] HEMATOLOGY Lymphocytes 1.7 K/CMM 1.0 - 5.5 01/29 Normal [facility] /2012 [facility] HEMATOLOGY Basophils # 0.1 K/CMM 0.0 - 0.2 01/29 Normal [facility] /2012 [facility] HEMATOLOGY Macrocyte 1+ None Seen 01/29 ABN /2012 [facility] *ABN* Center (01/29/2013 02:56:44) HEMATOLOGY Eosinophils 0.5 K/CMM 0.0 - 0.5 01/29 Normal [facility] /2012 [facility] HEMATOLOGY Lymphocytes 16.0 % 20.0 - 01/29 LOW [facility] 40.0 [facility] HEMATOLOGY Segs 69.8 % 45.0 - 01/29 Normal [facility] 75.0 [facility] HEMATOLOGY Monocytes 8.2 % 2.0 - 12.0 01/29 Normal [facility] HEMATOLOGY Eosinophils 5.1 % 0.0 - 4.0 01/29 HI [facility] BEDSIDE Gluc POC Notified 01/29 [facility] GLUCOSE Comment 1 RN/ /2012 [facility] TESTING [place] Brain wo Brain wo EXAM: CT BRAIN WITHOUT CONTRAST 01/28 - [facility] contrast contrast CT /2012 - [facility] CT Center DATE: Jan 28, [...] the latter. BEDSIDE Gluc POC Notified 01/28 [facility] GLUCOSE Comment 1 RN/ /2012 [facility] TESTING [place] CHEMISTRY Phosphorus 2.8 mg/dL 2.5 - 4.5 01/28 Normal [facility] CHEMISTRY Ca Norm WB 1.07 1.05 - 01/28 Normal [facility] mMol/L 1. [facility] CHEMISTRY Ca Ion WB 1.08 1.05 - 01/28 Normal [facility] mMol/L 1. [facility] CHEMISTRY Magnesium 1.9 mg/dL 1.8 - 2.4 01/28 Normal [facility] Lvl /2012 [facility] CHEMISTRY Folate Lvl 31.5 ng/mL >=3.0 01/[address] CHEMISTRY Vitamin B12 501 pg/mL 254 - 1320 01/27 Normal [facility] /2012 [facility] URINALYSIS UA <=1.0 0.1 - 1.0 01/27 [facility] Urobilinogen mg/dL [facility] URINALYSIS UA Mucus Few /LPF None Seen 01/27 [facility] URINALYSIS UA Turbidity Clear Clear 01/27 Normal [facility] (01/27/2013 01:13:00) [place] URINALYSIS UA Spec Grav 1.037 <=1.030 01/27 HI [facility] URINALYSIS UA pH 6.5 5.0 - 8.0 01/27 Normal [facility] URINALYSIS UA Color Yellow Yellow 01/27 [facility] *NA* Center (01/27/2013 01:13:00) URINALYSIS UA Nitrite Negative Negative 01/27 Normal Medical (01/27/2013 01:13:00) Center URINALYSIS UA Leuk Est Negative Negative 01/27 Normal [facility] (01/27/2013 01:13:00) Center URINALYSIS UA Sq Epi Moderate Few 01/27 ABN [facility] /LPF [facility] URINALYSIS UA WBC 1 /HPF 0 - 5 01/27 Normal [facility] URINALYSIS UA Protein Negative Negative 01/27 Normal [facility] mg/dL [facility] Center URINALYSIS UA Glucose Negative Negative 01/27 [facility] mg/dL [facility] URINALYSIS UA Bili Negative Negative 01/27 Medical *NA* Center (01/27/2013 01:13:00) URINALYSIS UA Blood Negative Negative 01/27 Normal [facility] (01/27/2013 01:13:00) Center URINALYSIS UA Ketones 10 mg/dL Negative 01/27 ABN [facility] CHEMISTRY CHD Risk 4.00 3.90 - 01/27 Normal [facility] 5.80 [facility] CHEMISTRY HDL 41 mg/dL >=61 01/27 LOW [facility] CHEMISTRY Chol 164 mg/dL <=199 01/27 Normal [facility] CHEMISTRY Trig 120 mg/dL <=149 01/27 Normal [facility] CHEMISTRY LDL 99 mg/dL <=99 01/27 Normal [facility] (Calculated) [facility] CHEMISTRY ASPARTATE 25 unit/L 0 - 37 01/27 Normal [facility] TRANSAMINASE [facility] CHEMISTRY A/G Ratio 0.9 0.7 - 1.6 01/27 Normal [facility] CHEMISTRY Globulin 3.5 g/dL 2.0 - 4.0 01/27 Normal [facility] CHEMISTRY B/C Ratio 20 6 - 25 01/27 Normal [facility] CHEMISTRY Total 6.5 g/dL 6.4 - 8.4 01/27 Normal [facility] Protein [facility] CHEMISTRY Bili Total 0.9 mg/dL 0.2 - 1.3 01/27 Normal [facility] CHEMISTRY ALANINE 9 unit/L 0 - 65 01/27 Normal [facility] AMINOTRANSFE [facility] RASE Center CHEMISTRY Alk Phos 80 unit/L 39 - 136 01/27 Normal [facility] CHEMISTRY Albumin Lvl 3.0 g/dL 3.5 - 5.0 01/27 LOW [facility] Abdomen AP Abdomen AP EXAM: Abdomen 1 view 01/26 - [facility] view - [facility] DATE: Jan 26, 2013 09:55:00 PM [...] with methicillin-resistant Staphylococcus aureus (MRSA) to aid [facility] in the prevention and control of MRSA infections in healthcare settings. A positive result does not indicate an infection or require treatment. A negative result does not exclude colonization or infection. [facility] [facility] (01/26/2013 15:15:00) [place] The polymerase chain reaction (PCR) assay detects a proprietary sequence indicative of the integration of the SCCmec cassette into the Staphylococcus aureus chromosome, indicating the presence of MRSA D NA. The assay utilizes FDA cleared IVD reagents. Performance characteristics have been verified by the [facility] within the [facility]. The [facility] Labor atory is authorized under the Clinical Laboratory Improvement Amendment of 1988 (CLIA-88) to perform high complexity testing. CHEMISTRY Hgb A1C 4.8 % <=5.6 01/26 Normal [facility] CHEMISTRY Globulin 3.7 g/dL 2.0 - 4.0 01/26 Normal [facility] CHEMISTRY A/G Ratio 0.8 0.7 - 1.6 01/26 Normal [facility] CHEMISTRY B/C Ratio 25 6 - 25 01/[address] CHEMISTRY ALANINE 10 unit/L 0 - 65 01/26 Normal [facility] AMINOTRANSFE [facility] RASE [place] CHEMISTRY ASPARTATE 36 unit/L 0 - 37 01/26 Normal [facility] TRANSAMINASE [facility] CHEMISTRY Total 6.7 g/dL 6.4 - 8.4 01/26 Normal [facility] Protein [facility] CHEMISTRY Bili Total 0.7 mg/dL 0.2 - 1.3 01/26 Normal [facility] CHEMISTRY Albumin Lvl 3.0 g/dL 3.5 - 5.0 01/26 LOW [facility] CHEMISTRY Alk Phos 79 unit/L 39 - 136 01/[address] Brain/Neck Brain/Neck EXAM: CTA HEAD 01/26 - [facility] CTA CTA /2012 - [facility] EXAM: CTA NECK Read by: Harsh [...] (at least a TICI 2b). There are asc-kpum-tsljmijv atherosclerotic plaques in the bilateral carotid bulbs. Opacification of the major dural venous sinuses is normal, with dominance on the left. There are multiple well-corticated lucent lesions in the occipital calvarium with involvement of the internal occipital protuberance. These do not appear to be aggressive and most likely represent arachnoid granulations. CTA NECK: Aortic arch: There are pug-titp-wccocigu atherosclerotic plaques in the origins of the [...] collateralization ( at least a TICI 2b). Whp-yvbj-rogkrkzy atherosclerotic plaques in the bilateral carotid siphons [...] MRI OF THE BRAIN WITHOUT CONTRAST 01/26 [facility] contrast contrast MRI /2012 - [facility] DATE:Jan 26, 2013 07:53:00 PM Read by: [...] Chest 1view EXAM: CHEST 1 VIEW 01/26 [facility] DATE: Jan 26, 2013 06:15:00 PM Read [...] the stomach, the tip is beyond the [id number]. The lungs are clear bilaterally. The costophrenic sulci are clear and well demarcated. The osseous structures and soft tissues are unremarkable. IMPRESSION: 1. Unchanged cardiomegaly with evidence of prior cardiac surgery. 2. No evidence of acute pulmonary process. 3. Feeding tube in stomach, the tip is not visualized as extends beyond the pxfqf-[id number] BEDSIDE Gluc POC 109 mg/dL 70 - 99 07/10 HI 1Interpretive GLUCOSE [facility] Data: [facility] Upper Reportable Limit: 200 mg/dL. BEDSIDE Comment1 Notify 07/10 [facility] GLUCOSE RN/ [facility] TESTING BEDSIDE Comment1 Notify 07/10 [facility] GLUCOSE RN/ /2011 [facility] TESTING BEDSIDE Gluc POC 106 mg/dL 70 - 99 / HI 2Interpretive GLUCOSE [facility] /2011 Data: [facility] TESTING Upper Reportable Limit: 200 mg/dL. CHEMISTRY AGAP 13.7 meq/L 10.0 - 07/10 Normal MH 20.0 [facility] CHEMISTRY Potassium 3.7 meq/L 3.5 - 5.1 07/10 Normal Lvl /2011 [facility] CHEMISTRY Chloride Lvl 106 meq/L 95 - 109 07/10 Normal MH /2011 [facility] CHEMISTRY Calcium Lvl 9.1 mg/dL 8.5 - 10.5 / Normal [facility] CHEMISTRY CO2 29 meq/L 24 - 32 06 Normal MH /2011 [facility] CHEMISTRY Glucose Lvl 97 mg/dL 70 - 99 07/10 Normal 4Interpretive Data: Adult [facility] reference range values reflect the clinical guidelinesof the [place] [employer]. CHEMISTRY Sodium Lvl 145 meq/L 135 - 145 / Normal [facility] CHEMISTRY Creatinine 0.9 mg/dL 0.5 - 1.4 07/10 Normal MH Lvl /2011 [facility] CHEMISTRY BUN 14 mg/dL 7 - 22 06 Normal MH /2011 [facility] HEMATOLOGY RDW 16.0 % 11.5 - 06/ HI MH 14.5 /2011 [facility] HEMATOLOGY MCHC 34.0 g/dL 32.0 - 06 Normal MH 36.0 /2011 [facility] HEMATOLOGY MCH 32.0 pg 27.0 - 07/10 HI 31.0 /2011 [facility] HEMATOLOGY Platelet 225 K/CMM 133 - 450 07/10 Normal [facility] HEMATOLOGY MPV 8.8 fL 7.4 - 10.4 07/10 Normal MH /2011 [facility] HEMATOLOGY WBC 6.9 K/CMM 3.7 - 10.4 06 Normal MH /2011 [facility] HEMATOLOGY RBC 3.88 M/CMM 4.20 - 06/ LOW MH 5.40 /2011 [facility] HEMATOLOGY Hgb 12.4 g/dL 12.0 - 07/10 Normal 16.0 [facility] HEMATOLOGY MCV 94.1 fL 81.0 - 07/10 Normal 99.0 /2011 [facility] HEMATOLOGY Hct 36.5 % 36.0 - 07/10 Normal 48.0 /2011 [facility] HEMATOLOGY PT 14.4 s 12.0 - 07/10 Normal MH 14.7 /2011 [facility] HEMATOLOGY INR 1.12 0.85 - 07/10 Normal 6Interpretive MH 1.17 /2011 Data: [facility] RECOMMENDED RANGES FOR PROTIME INR: 2.0-3.0 for most medical and surgical thromboemboli c states. 2.5-3.5 for artificial heart valves and recurrent embolism.INR SHOULD BE USED ONLY FOR PATIENTS ON STABLE ANTICOAGULANT THERAPY. BEDSIDE Gluc POC 106 mg/dL 70 - 99 06/ HI 3Interpretive GLUCOSE [facility] /2011 Data: [facility] TESTING Upper Reportable Limit: 200 mg/dL. BEDSIDE Comment1 Notify 07/09 NA MH GLUCOSE RN/ /2011 [facility] TESTING CHEMISTRY TSH 2.280 0.360 - 07/09 Normal uIU/mL 3.740 /2011 [facility] CHEMISTRY Chloride Lvl 108 meq/L 95 - 109 07/09 Normal [facility] CHEMISTRY Potassium 3.6 meq/L 3.5 - 5.1 07/09 Normal Lv [facility] CHEMISTRY Sodium Lvl 145 meq/L 135 - 145 07/09 Normal [facility] CHEMISTRY Creatinine 0.8 mg/dL 0.5 - 1.4 07/09 Normal Lvl [facility] CHEMISTRY BUN 16 mg/dL 7 - 22 07/09 Normal [facility] CHEMISTRY Glucose Lvl 102 mg/dL 70 - 99 07/09 HI 5Interpretive Data: Adult [facility] reference range values reflect the clinical guidelinesof the [place] [employer]. CHEMISTRY Calcium Lvl 8.6 mg/dL 8.5 - 10.5 07/09 Normal [facility] CHEMISTRY AGAP 12.6 meq/L 10.0 - 07/09 Normal MH 20.0 [facility] CHEMISTRY CO2 28 meq/L 24 - 32 07/09 Normal [facility] HEMATOLOGY Hgb 11.7 g/dL 12.0 - 07/09 LOW MH 16.0 /2011 [facility] HEMATOLOGY Hct 34.7 % 36.0 - 07/09 LOW MH 48.0 /2011 [facility] HEMATOLOGY MPV 9.1 fL 7.4 - 10.4 07/09 Normal [facility] HEMATOLOGY Platelet 195 K/CMM 133 - 450 07/09 Normal [facility] HEMATOLOGY MCHC 33.8 g/dL 32.0 - 07/09 Normal MH 36.0 /2011 [facility] HEMATOLOGY MCH 31.7 pg 27.0 - 07/09 HI MH 31.0 /2011 [facility] HEMATOLOGY MCV 93.8 fL 81.0 - 07/09 Normal MH 99.0 /2011 [facility] HEMATOLOGY RDW 15.6 % 11.5 - 07/09 HI MH 14.5 /2011 [facility] HEMATOLOGY RBC 3.70 M/CMM 4.20 - 07/09 LOW MH 5.40 /2011 [facility] HEMATOLOGY WBC 7.3 K/CMM 3.7 - 10.4 07/09 Normal [facility] URINALYSIS UA Blood Negative Negative 07/08 Normal [facility] (07/09/2011 17:55:00) URINALYSIS UA 6.0 mg/dL 0.1 - 1.0 07/08 HI Urobilinogen /2011 [facility] URINALYSIS UA Ketones 20 mg/dL Negative 07/08 ABN [facility] *ABN* (07/09/2011 17:55:00) URINALYSIS UA Bili Negative Negative 07/08 NA [facility] *NA* (07/09/2011 17:55:00) URINALYSIS Micro? Performed 07/08 NA [facility] *NA* (07/09/2011 17:55:00) URINALYSIS UA RBC 1 /HPF 0 - 2 07/08 Normal [facility] URINALYSIS UA Leuk Est Small Negative 07/08 ABN [facility] *ABN* (07/09/2011 17:55:00) URINALYSIS UA WBC 7 /HPF 0 - 5 07/08 HI [facility] URINALYSIS UA Sq Epi Many /LPF Few 07/08 ABN [facility] *ABN* (07/09/2011 17:55:00) URINALYSIS UA Bacteria Few /HPF None Seen 07/08 NA [facility] *NA* (07/09/2011 17:55:00) URINALYSIS UA Nitrite Negative Negative 07/08 Normal [facility] (07/09/2011 17:55:00) URINALYSIS UA Protein Negative mg/dL Negative 07/08 Normal [facility] (07/09/2011 17:55:00) URINALYSIS UA pH 7.0 5.0 - 8.0 07/08 Normal [facility] URINALYSIS UA Glucose Negative mg/dL Negative 07/08 NA [facility] *NA* (07/09/2011 17:55:00) URINALYSIS UA Turbidity Clear Clear 07/08 Normal [facility] (07/09/2011 17:55:00) URINALYSIS UA Spec Grav 1.011 <=1.030 07/08 Normal [facility] URINALYSIS UA Color Yellow Yellow 07/08 NA [facility] *NA* (07/09/2011 17:55:00) HEMATOLOGY Hct 36.2 % 36.0 - 07/08 Normal 48.0 [facility] HEMATOLOGY MCV 93.3 fL 81.0 - 07/08 Normal 99.0 [facility] HEMATOLOGY MCH 31.5 pg 27.0 - 07/08 HI 31.0 /2011 [facility] HEMATOLOGY MCHC 33.8 g/dL 32.0 - 06 Normal 36.0 /2011 [facility] HEMATOLOGY RDW 15.4 % 11.5 - 06 HI 14.5 /2011 [facility] HEMATOLOGY Platelet 203 K/CMM 133 - 450 06 Normal MH /2011 [facility] HEMATOLOGY MPV 9.1 fL 7.4 - 10.4 07/08 Normal [facility] HEMATOLOGY WBC 7.8 K/CMM 3.7 - 10.4 06 Normal /2011 [facility] HEMATOLOGY RBC 3.88 M/CMM 4.20 - 06 LOW 5.40 /2011 [facility] HEMATOLOGY Hgb 12.2 g/dL 12.0 - 07/08 Normal 16.0 /2011 [facility] BEDSIDE Gluc POC 114 mg/dL 70 - 99 07/07 HI 2Interpretive GLUCOSE [facility] /2011 Data: [facility] TESTING Upper Reportable Limit: 200 mg/dL. BEDSIDE Comment1 Notify 07/07 NA GLUCOSE RN/MD [facility] TESTING CHEMISTRY Creatinine 1.0 mg/dL 0.5 - 1.4 07/07 Normal Lvl [facility] CHEMISTRY Sodium Lvl 144 meq/L 135 - 145 06 Normal [facility] CHEMISTRY Potassium 4.0 meq/L 3.5 - 5.1 06 Normal Lvl [facility] CHEMISTRY Chloride Lvl 105 meq/L 95 - 109 07/07 Normal [facility] CHEMISTRY Glucose Lvl 105 mg/dL 70 - 99 07/07 HI 5Interpretive Data: Adult [facility] reference range values reflect the clinical guidelinesof the [place] [employer]. CHEMISTRY BUN 12 mg/dL 7 - 22 07/07 Normal [facility] CHEMISTRY CO2 31 meq/L 24 - 32 07/07 Normal [facility] CHEMISTRY Calcium Lvl 7.9 mg/dL 8.5 - 10.5 07/07 LOW [facility] CHEMISTRY AGAP 12.0 meq/L 10.0 - 06 Normal 20.0 [facility] CHEMISTRY BNP 525 pg/mL <=100 07/07 HI 9Interpretive Data: [facility] Elevated results are in line with increasing severity of congestive heart failure. Minor elevations between 100 and 300 may be seen with Myocardial Ischemia, Sodium retaining drugs, and compensated/t reated heart failure. HEMATOLOGY Monocytes # 0.9 K/CMM 0.0 - 0.8 06/01 HI MH /2011 [facility] HEMATOLOGY Basophils # 0.0 K/CMM 0.0 - 0.2 06/ Normal /2011 [facility] HEMATOLOGY Eosinophils 0.5 K/CMM 0.0 - 0.5 06/ Normal MH # /2011 [facility] HEMATOLOGY Eosinophils 7.5 % 0.0 - 4.0 06/ HI /2011 [facility] HEMATOLOGY Monocytes 12.6 % 2.0 - 12.0 06/ HI /2011 [facility] HEMATOLOGY Lymphocytes 24.5 % 20.0 - 06/ Normal 40.0 /2011 [facility] HEMATOLOGY Segs 54.7 % 45.0 - 06/ Normal 75.0 /2011 [facility] HEMATOLOGY Basophils 0.7 % 0.0 - 1.0 / Normal /2011 [facility] HEMATOLOGY Lymphocytes 1.8 K/CMM 1.0 - 5.5 06/ Normal MH # /2011 [facility] HEMATOLOGY Segs-Bands # 4.0 K/CMM 1.5 - 8.1 07/07 Normal [facility] HEMATOLOGY RBC Morph Normal 07/07 Normal [facility] (07/08/2011 06:00:00) HEMATOLOGY Plt Morph Normal 07/07 Normal /2011 [facility] (07/08/2011 06:00:00) HEMATOLOGY PTT 26.5 s 22.9 - 07/07 Normal 13Interpretiv MH 35.8 /2011 e Data: [facility] Heparin Therapeutic Range: 57 - 92 Seconds HEMATOLOGY PT 14.1 s 12.0 - 07/07 Normal 14.7 /2011 [facility] HEMATOLOGY INR 1.09 0.85 - 07/07 Normal 10Interpretiv 1.17 /2011 e Data: [facility] RECOMMENDED RANGES FOR PROTIME INR: 2.0-3.0 for most medical and surgical thromboemboli c states. 2.5-3.5 for artificial heart valves and recurrent embolism.INR SHOULD BE USED ONLY FOR PATIENTS ON STABLE ANTICOAGULANT THERAPY. HEMATOLOGY Platelet 176 K/CMM 133 - 450 07/07 Normal [facility] HEMATOLOGY RDW 16.7 % 11.5 - 06 HI 14.5 /2011 [facility] HEMATOLOGY RBC 3.41 M/CMM 4.20 - 06/ LOW 5.40 /2011 [facility] HEMATOLOGY Hgb 10.6 g/dL 12.0 - 07/07 LOW 16.0 [facility] HEMATOLOGY MPV 8.6 fL 7.4 - 10.4 07/07 Normal MH /2011 [facility] HEMATOLOGY MCHC 33.9 g/dL 32.0 - 07/07 Normal MH 36.0 /2011 [facility] HEMATOLOGY MCH 31.3 pg 27.0 - 07/07 HI MH 31.0 /2011 [facility] HEMATOLOGY Hct 31.5 % 36.0 - 07/07 LOW MH 48.0 /2011 [facility] HEMATOLOGY MCV 92.3 fL 81.0 - 07/07 Normal MH 99.0 /2011 [facility] HEMATOLOGY WBC 7.3 K/CMM 3.7 - 10.4 07/07 Normal MH /2011 [facility] HEMATOLOGY Hgb 10.6 g/dL 12.0 - 07/07 LOW MH 16.0 /2011 [facility] HEMATOLOGY Hct 31.3 % 36.0 - 07/07 LOW MH 48.0 [facility] BEDSIDE Comment1 Assess 07/07 NA GLUCOSE Patient /2011 [facility] TESTING BEDSIDE Gluc POC 139 mg/dL 70 - 99 07/07 HI 3Interpretive GLUCOSE [facility] Data: [facility] TESTING Upper Reportable Limit: 200 mg/dL. HEMATOLOGY Hct 32.3 % 36.0 - 07/06 LOW MH 48.0 [facility] HEMATOLOGY Hgb 11.0 g/dL 12.0 - 07/06 LOW MH 16.0 [facility] BEDSIDE Gluc POC 123 mg/dL 70 - 99 07/06 HI 4Interpretive GLUCOSE [facility] Data: [facility] TESTING Upper Reportable Limit: 200 mg/dL. BEDSIDE Comment1 Notify 07/06 NA GLUCOSE RN/MD /2011 [facility] TESTING BLOOD BANK FFP product Product available 07/06 Normal MH RESULTS /2011 [facility] (07/07/2011 11:01:00) BLOOD BANK RBC product Product available 07/06 Normal MH RESULTS /2011 [facility] (07/07/2011 10:27:00) CHEMISTRY AGAP 10.2 meq/L 10.0 - 07/06 Normal MH 20.0 [facility] CHEMISTRY CO2 27 meq/L 24 - 32 07/06 Normal MH [facility] CHEMISTRY Calcium Lvl 6.5 mg/dL 8.5 - 10.5 07/06 CRIT 8Result Comment: [facility] Critical Result(s) called to Melania at 07/07/2011 6:34 by [facility]. Read back OK. CHEMISTRY Glucose Lvl 103 mg/dL 70 - 99 07/06 HI 6Interpretive Data: Adult [facility] reference range values reflect the clinical guidelinesof the [place] [employer]. CHEMISTRY Creatinine 0.7 mg/dL 0.5 - 1.4 07/06 Normal MH Lvl [facility] CHEMISTRY Chloride Lvl 114 meq/L 95 - 109 07/06 HI [facility] CHEMISTRY Potassium 3.2 meq/L 3.5 - 5.1 07/06 LOW MH Lvl /2011 [facility] CHEMISTRY Sodium Lvl 148 meq/L 135 - 145 07/06 HI [facility] CHEMISTRY BUN 14 mg/dL 7 - 22 07/06 Normal MH /2011 [facility] HEMATOLOGY RBC 2.71 M/CMM 4.20 - 07/06 LOW MH 5.40 /2011 [facility] HEMATOLOGY WBC 6.6 K/CMM 3.7 - 10.4 07/06 Normal [facility] HEMATOLOGY MCH 32.6 pg 27.0 - 07/06 HI MH 31.0 [facility] HEMATOLOGY MCHC 35.0 g/dL 32.0 - 07/06 Normal MH 36.0 [facility] HEMATOLOGY MCV 93.1 fL 81.0 - 07/06 Normal MH 99.0 [facility] HEMATOLOGY MPV 9.1 fL 7.4 - 10.4 07/06 Normal [facility] HEMATOLOGY RDW 16.3 % 11.5 - 07/06 HI MH 14.5 [facility] HEMATOLOGY Platelet 134 K/CMM 133 - 450 07/06 Normal [facility] HEMATOLOGY Eosinophils 0.3 K/CMM 0.0 - 0.5 07/06 Normal MH # /2011 [facility] HEMATOLOGY Monocytes 11.3 % 2.0 - 12.0 07/06 Normal [facility] HEMATOLOGY Eosinophils 5.0 % 0.0 - 4.0 07/06 HI MH /2011 [facility] HEMATOLOGY Basophils # 0.0 K/CMM 0.0 - 0.2 07/06 Normal [facility] HEMATOLOGY Lymphocytes 32.7 % 20.0 - 07/06 Normal MH 40.0 [facility] HEMATOLOGY Monocytes # 0.7 K/CMM 0.0 - 0.8 07/06 Normal [facility] HEMATOLOGY Basophils 0.5 % 0.0 - 1.0 07/06 Normal /2011 [facility] HEMATOLOGY Segs-Bands # 3.3 K/CMM 1.5 - 8.1 07/06 Normal [facility] HEMATOLOGY Lymphocytes 2.2 K/CMM 1.0 - 5.5 07/06 Normal MH # /2011 [facility] HEMATOLOGY Segs 50.5 % 45.0 - 07/06 Normal MH 75.0 [facility] CHEMISTRY Magnesium 1.7 mg/dL 1.8 - 2.4 07/05 LOW MH Lvl [facility] CHEMISTRY Phosphorus 2.3 mg/dL 2.5 - 4.5 07/05 LOW MH [facility] CHEMISTRY Ca Norm 1.00 1.16 - 07/05 LOW MH mMol/L 1. [facility] CHEMISTRY Ca Ion 1.03 1.16 - 07/05 LOW MH mMol/L 1. [facility] CHEMISTRY Ca Norm mgdL 4.00 mg/dL 4.65 - 07/05 LOW MH . [facility] CHEMISTRY Ca Ion mgdL 4.12 mg/dL 4.65 - 07/05 LOW MH . [facility] CHEMISTRY AST 11 U/L 0 - 37 07/05 Normal MH [facility] CHEMISTRY Bili Total 0.9 mg/dL 0.2 - 1.3 07/05 Normal [facility] CHEMISTRY Total 5.8 g/dL 6.4 - 8.4 07/05 LOW [facility] CHEMISTRY Chloride Lvl 110 meq/L 95 - 109 07/05 HI MH [facility] CHEMISTRY Potassium 3.5 meq/L 3.5 - 5.1 07/05 Normal Lvl [facility] CHEMISTRY Calcium Lvl 7.2 mg/dL 8.5 - 10.5 07/05 LOW MH [facility] CHEMISTRY CO2 28 meq/L 24 - 32 07/05 Normal MH [facility] CHEMISTRY Alk Phos 46 U/L 39 - 136 07/05 Normal [facility] CHEMISTRY ALT 12 U/L 0 - 65 07/05 Normal [facility] CHEMISTRY Albumin Lvl 3.2 g/dL 3.5 - 5.0 07/05 LOW MH [facility] CHEMISTRY BUN 25 mg/dL 7 - 22 07/05 HI MH [facility] CHEMISTRY Sodium Lvl 146 meq/L 135 - 145 07/05 HI [facility] CHEMISTRY Glucose Lvl 128 mg/dL 70 - 99 07/05 HI 7Interpretive Data: Adult [facility] reference range values reflect the clinical guidelinesof the [place] [employer]. CHEMISTRY Creatinine 0.9 mg/dL 0.5 - 1.4 07/05 Normal Lvl [facility] CHEMISTRY A/G Ratio 1.2 0.7 - 1.6 05/ Normal MH /2011 [facility] CHEMISTRY Globulin 2.6 g/dL 2.0 - 4.0 05/ Normal /2011 [facility] CHEMISTRY AGAP 11.5 meq/L 10.0 - 07/05 Normal 20.0 [facility] CHEMISTRY B/C Ratio 28 6 - 25 05/ HI MH /2011 [facility] HEMATOLOGY Lymphocytes 21.7 % 20.0 - 05 Normal MH 40.0 /2011 [facility] HEMATOLOGY Monocytes 9.5 % 2.0 - 12.0 05/ Normal MH /2011 [facility] HEMATOLOGY Eosinophils 4.4 % 0.0 - 4.0 05/ HI MH /2011 [facility] HEMATOLOGY Segs 64.2 % 45.0 - 07/05 Normal 75.0 /2011 [facility] HEMATOLOGY Segs-Bands # 4.9 K/CMM 1.5 - 8.1 07/05 Normal /2011 [facility] HEMATOLOGY Basophils # 0.0 K/CMM 0.0 - 0.2 07/05 Normal [facility] HEMATOLOGY Eosinophils 0.3 K/CMM 0.0 - 0.5 05/ Normal # /2011 [facility] HEMATOLOGY Monocytes # 0.7 K/CMM 0.0 - 0.8 05/ Normal MH /2011 [facility] HEMATOLOGY Lymphocytes 1.7 K/CMM 1.0 - 5.5 / Normal /2011 [facility] HEMATOLOGY Basophils 0.2 % 0.0 - 1.0 / Normal MH /2011 [facility] HEMATOLOGY PTT 27.0 s 22.9 - 07/05 Normal 14Interpretiv 35.8 /2011 e Data: [facility] Heparin Therapeutic Range: 57 - 92 Seconds HEMATOLOGY PT 16.3 s 12.0 - 30 HI 14.7 /2011 [facility] HEMATOLOGY INR 1.32 0.85 - 07/05 HI 11Interpretiv 1.17 /2011 e Data: [facility] RECOMMENDED RANGES FOR PROTIME INR: 2.0-3.0 for most medical and surgical thromboemboli c states. 2.5-3.5 for artificial heart valves and recurrent embolism.INR SHOULD BE USED ONLY FOR PATIENTS ON STABLE ANTICOAGULANT THERAPY. HEMATOLOGY MCV 92.2 fL 81.0 - 07/05 Normal 99.0 /2011 [facility] HEMATOLOGY MCH 32.2 pg 27.0 - 05 HI MH 31.0 /2011 [facility] HEMATOLOGY RBC 3.30 M/CMM 4.20 - 07/05 LOW MH 5.40 /2011 [facility] HEMATOLOGY WBC 7.7 K/CMM 3.7 - 10.4 07/05 Normal [facility] HEMATOLOGY MCHC 34.9 g/dL 32.0 - 07/05 Normal 36.0 [facility] HEMATOLOGY MPV 9.0 fL 7.4 - 10.4 07/05 Normal [facility] HEMATOLOGY Platelet 142 K/CMM 133 - 450 07/05 Normal [facility] HEMATOLOGY RDW 16.8 % 11.5 - 07/05 HI 14.5 [facility] CHEMISTRY CK MB Index 2.0 0.0 - 2.5 07/04 Normal [facility] CHEMISTRY CK MB 1.1 ng/mL 0.5 - 3.6 07/04 Normal [facility] CHEMISTRY Troponin-I 0.26 ng/mL 0.00 - 07/04 Normal 0.40 [facility] CHEMISTRY Total CK 55 U/L 12 - 191 07/04 Normal [facility] CHEMISTRY Globulin 2.6 g/dL 2.0 - 4.0 07/04 Normal [facility] CHEMISTRY Total 6.4 g/dL 6.4 - 8.4 07/04 Normal [facility] CHEMISTRY Albumin Lvl 3.8 g/dL 3.5 - 5.0 07/04 Normal [facility] CHEMISTRY B/C Ratio 36 6 - 25 07/04 HI [facility] CHEMISTRY Bili Total 1.5 mg/dL 0.2 - 1.3 07/04 HI [facility] CHEMISTRY AST 11 U/L 0 - 37 07/04 Normal [facility] CHEMISTRY A/G Ratio 1.5 0.7 - 1.6 07/04 Normal [facility] CHEMISTRY ALT 12 U/L 0 - 65 07/04 Normal [facility] CHEMISTRY Alk Phos 46 U/L 39 - 136 07/04 Normal [facility] HEMATOLOGY INR 1.48 0.85 - 07/04 HI 12Interpretiv MH 1. e Data: [facility] RECOMMENDED RANGES FOR PROTIME INR: 2.0-3.0 for most medical and surgical thromboemboli c states. 2.5-3.5 for artificial heart valves and recurrent embolism.INR SHOULD BE USED ONLY FOR PATIENTS ON STABLE ANTICOAGULANT THERAPY. HEMATOLOGY PT 17.8 s 12.0 - 05/29 HI MH 14.7 [facility] HEMATOLOGY PTT 24.7 s 22.9 - 07/04 Normal 15Interpretiv MH 35.8 /2011 e Data: [facility] Heparin Therapeutic Range: 57 - 92 Seconds BLOOD BANK RBC product Product available 07/04 Normal MH RESULTS [facility] (07/05/2011 03:00:00) CHEMISTRY CK MB Index 2.9 0.0 - 2.5 07/04 HI MH [facility] CHEMISTRY Troponin-I 0.15 ng/mL 0.00 - 07/04 Normal 0.40 [facility] CHEMISTRY CK MB 1.5 ng/mL 0.5 - 3.6 07/04 Normal MH [facility] CHEMISTRY Total CK 51 U/L 12 - 191 07/04 Normal MH [facility] CHEMISTRY Phosphorus 2.7 mg/dL 2.5 - 4.5 07/04 Normal [facility] CHEMISTRY Magnesium 1.8 mg/dL 1.8 - 2.4 07/04 Normal Lvl [facility] CHEMISTRY Ca Ion 1.15 1.16 - 07/04 LOW MH mMol/L 1. [facility] CHEMISTRY Ca Ion mgdL 4.60 mg/dL 4.65 - 07/04 LOW MH 5. [facility] CHEMISTRY Ca Norm 1.17 1.16 - 07/04 Normal MH mMol/L 1. [facility] CHEMISTRY Ca Norm mgdL 4.68 mg/dL 4.65 - 07/04 Normal MH 5. [facility] BACTERIAL MRSA by PCR Negative 1 07/04 Normal 1Interpretive - Data: [facility] (07/04/2011 20:30:00) INTERPRETATIO N: Negative..... .No MRSA [...] product Product available 07/03 Normal MH RESULTS [facility] (07/04/2011 18:14:00) BLOOD BANK TRXN Path Product: 07/03 NA MH RESULTS Interp Fresh /2011 [facility] Frozen Plasma_. Unit #: [id number] etation: [facility] medical record reviewed. Signs and symptoms most consisten with nonspecifi c reaction to the transfusio n event. No evidence of a hemolytic transfusio n reaction.P athologist : Colby Hedrick, #[id number] ult completed "Investiga tion of transfusio n reaction" form. BLOOD BANK Hemolysis Ck None 07/03 Normal MH RESULTS /2011 [facility] (07/04/2011 15:15:00) CHEMISTRY Troponin-I 0.04 ng/mL 0.00 - 07/03 Normal 0.40 [facility] CHEMISTRY Total CK 36 U/L 12 - 191 07/03 Normal [facility] CHEMISTRY CK MB 1.1 ng/mL 0.5 - 3.6 07/03 Normal [facility] CHEMISTRY CK MB Index 3.1 0.0 - 2.5 07/03 HI [facility] BLOOD BANK FFP product Product available 07/03 Normal MH RESULTS /2011 [facility] (07/04/2011 09:38:00) BLOOD BANK Antibody Negative 07/03 Normal RESULTS Scrn /2011 [facility] (07/04/2011 05:20:00) BLOOD BANK ABO/Rh B POS 07/03 Unknown MH RESULTS [facility] CHEMISTRY B/C Ratio 60 6 - 25 07/03 HI MH [facility] CHEMISTRY Globulin 2.6 g/dL 2.0 - 4.0 07/03 Normal [facility] CHEMISTRY A/G Ratio 1.3 0.7 - 1.6 07/03 Normal [facility] CHEMISTRY Total 5.9 g/dL 6.4 - 8.4 07/03 LOW Protein [facility] CHEMISTRY AST 9 U/L 0 - 37 07/03 Normal [facility] CHEMISTRY ALT 9 U/L 0 - 65 07/03 Normal [facility] CHEMISTRY Alk Phos 37 U/L 39 - 136 07/03 LOW [facility] CHEMISTRY Albumin Lvl 3.3 g/dL 3.5 - 5.0 07/03 LOW MH [facility] CHEMISTRY Bili Total 0.3 mg/dL 0.2 - 1.3 07/03 Normal [facility] Vital Signs Vital Sign Value Date Comments Source Temperature Oral (F) 98.6 F 02/06/2013 [facility] Heart Rate 98 02/06/2013 [facility] Respitory Rate 20 02/06/2013 [facility] Systolic (mm Hg) 131 02/06/2013 [facility] Diastolic (mm Hg) 85 02/06/2013 [facility] Heart Rate 85 02/06/2013 [facility] Respitory Rate 20 02/06/2013 [facility] Systolic (mm Hg) 134 02/06/2013 [facility] Diastolic (mm Hg) 81 02/06/2013 [facility] Temperature Oral (F) 98.6 F 02/06/2013 [facility] Heart Rate 70 02/05/2013 [facility] Respitory Rate 17 02/05/2013 [facility] Temperature Oral (F) 96.3 F 02/05/2013 [facility] Systolic (mm Hg) 106 02/05/2013 [facility] Diastolic (mm Hg) 44 02/05/2013 [facility] Height 162.56 cm 01/26/2013 [facility] Weight 65.005 01/26/2013 [facility] Weight 66 01/26/2013 [facility] Height 170.18 cm 01/26/2013 [facility] Systolic (mm Hg) 130 07/11/2011 [facility] Diastolic (mm Hg) 68 07/11/2011 [facility] Temperature Oral (F) 96.7 F 07/11/2011 [facility] Heart Rate 67 07/11/2011 [facility] Respitory Rate 20 07/11/2011 [facility] Diastolic (mm Hg) 67 07/11/2011 [facility] Systolic (mm Hg) 112 07/11/2011 [facility] Respitory Rate 18 07/11/2011 [facility] Heart Rate 67 07/11/2011 [facility] Temperature Oral (F) 97.9 F 07/11/2011 [facility] Respitory Rate 16 07/11/2011 [facility] Systolic (mm Hg) 117 07/11/2011 [facility] Temperature Oral (F) 98.2 F 07/11/2011 [facility] Diastolic (mm Hg) 79 07/11/2011 [facility] Heart Rate 76 07/11/2011 [facility] Weight 65.400 07/09/2011 [facility] Height 183.00 cm 07/09/2011 [facility] Diastolic (mm Hg) 69 07/08/2011 [facility] Temperature Oral (F) 98.2 F 07/08/2011 [facility] Heart Rate 61 07/08/2011 [facility] Systolic (mm Hg) 128 07/08/2011 [facility] Respitory Rate 18 07/08/2011 [facility] Diastolic (mm Hg) 69 07/08/2011 [facility] Systolic (mm Hg) 128 07/08/2011 [facility] Respitory Rate 20 07/08/2011 [facility] Heart Rate 61 07/08/2011 [facility] Temperature Oral (F) 98.2 F 07/08/2011 [facility] Heart Rate 64 07/08/2011 [facility] Temperature Oral (F) 98.1 F 07/08/2011 [facility] Respitory Rate 18 07/08/2011 [facility] Diastolic (mm Hg) 64 07/08/2011 [facility] Systolic (mm Hg) 126 07/08/2011 [facility] Weight 67.700 07/04/2011 [facility] Height 160.02 cm 07/04/2011 [facility] Encounters Location Location Encounter Encounter Reason Attending ADM DC Status Source Details Type Number For Provider Date Date Visit Inpatient [id number] GI STEVEN 07/03 07/07 Active [facility] BLEED KG /2011 [facility] OU [id number] GI HILARY 07/08 07/10 Active [facility] BLEED PAZ /2011 [facility] Inpatient [id number] STROKE SHAYAN 01/26 02/05 Active [facility] LUZ MARINA /2012 [facility] Outpatient [id number] MIGUEL 09/13 Active [facility] KAL /2017 [place] Procedures Procedure Code Date Perfomer Comments Source CABG x 4 - [id number] 02/07/1992 [facility] Coronary artery Medical bypass grafts x 4 Center Hip replacement [id number] [facility]
--- OUTSIDE RECORDS SUMMARY | 2017-09-15 05:28 | XMS REPORT | CCD ---
:1930 Author Organization [facility] Care Team Providers Name Role Phone Braxton [...] range values reflect the clinical guidelinesof the [place] [employer].5Interpretive Data: Adult reference range values reflect the clinical guidelinesof the [place] [employer].HEMATOLOGY Most recent to oldest 1 [...]
--- OUTSIDE RECORDS SUMMARY | 2017-09-15 05:28 | XMS REPORT | CCD ---
:1930 Author Organization [facility] Care Team Providers Name Role Phone Christie [...] of vitamin-K containing foods diet.(Same As: Coumadin) [place] 5/325 oral tablet 1 tab, Route: PO, Drug 02/02/2013 02/05/2013 Discontinued Form: TAB, Dosing Weight 65.005, kg, Q6H, PRN Pain, Start date: 02/02/13 16:17:00, Duration: 30 day, Stop date: 03/04/13 16:16:00(Same as: [place] 325/5) Do not exceed 4gm/day of acetaminophen. [...] Duration: 1 doses or times, Dose=2.2ml/kg, Max gehp=047sn -- "To be infused by Radiology Staff ONLY" 01/2601/26/2013 Completed Dose=2.2ml/kg, Max qqtz=[id number] -- "To be infused by Radiology Staff [...] Crush) bisacodyl 10 mg, 1 supp, Route: AZ, 01/26/2013 02/05/2013 Discontinued Drug form: SUPP, Daily, Dosing Weight 65.005, kg, PRN Other -See Comment, Start date: 01/26/13 15:45:00, Duration: 30 day, Stop date: 02/25/13 15:44:00(Same As: Dulcolax, Bisco-Lax) Omnipaque 350mg/ml 85 mL, Route: IVP, Drug Form: SOLN, Dosing Weight 65.005, kg, ONCALL, STAT, Start date: 01/26/13 17:39:00, Duration: 1 doses or times, Dose=2.2ml/kg, Max [id number]=[id number] -- "To be infused by Radiology Staff ONLY" 01/2601/26/2013 Discontinued Dose=2.2ml/kg, Max xjbh=006uw -- "To be infused by Radiology Staff [...] by the [facility] within the [facility]. The Molecular Diagnostic Laboratory is authorized [...] values reflect the clinical guidelines of the [place] [employer].9Interpretive Data: Adult reference range values reflect the clinical guidelines of the [place] [employer].10Interpretive Data: Adult reference range values reflect the clinical guidelines of the [place] [employer].11Result Comment: CRITICAL RESULT CALLED TO HAYDEN WATTS AT 02/02/2013 18:26 BY [email or web address]. READ BACK OK. TEST PERFORMED AT 17.10 [...] Data: Heparin Therapeutic Range: 57 - 92 [id number] Data: Heparin Therapeutic Range: 57 - 92 [id number] Comment: Critical Result(s) called to marc kothari [...]
--- OUTSIDE RECORDS SUMMARY | 2017-09-15 05:28 | XMS REPORT | CCD ---
:1930 Author Organization [facility] Care Team Providers Name Role Phone [...] mg, 1 supp, Route: 07/04/2011 07/08/2011 Discontinued ID, Drug form: SUPP, Q4H, PRN Pain/Fever, Start [...] Interp Product: Fresh Frozen Plasma_. Unit #: [id number]: [facility] medical record reviewed. Signs and symptoms most consisten with nonspecific reaction to the transfusion event. No evidence of a hemolytic transfusion reaction.Pathologist: Colby Hedrick, # [id number] completed "Investigation of transfusion reaction" form. *NA* [...] range values reflect the clinical guidelinesof the [place] [employer].6Interpretive Data: Adult reference range values reflect the clinical guidelinesof the [place] [employer].7Interpretive Data: Adult reference range values reflect the clinical guidelinesof the [place] [employer].8Result Comment: Critical Result(s) called to Melania at 07/07/2011 6:34 by [facility]. Read back OK.9Interpretive Data: Elevated results [...] Data: Heparin Therapeutic Range: 57 - 92 [id number] Data: Heparin Therapeutic Range: 57 - 92 [id number] Data: Heparin Therapeutic Range: 57 - 92 Seconds
--- NOTE | 2017-09-15 06:05 | EDPHYS ---
Physician Documentation [facility] Name: Anh Murray Age: 87 yrs Sex: Female : 1930 Arrival Date: 09/15/2017 Time: 05:21 Bed 2 Private MD: ED Physician Vimal Palacios HPI: 09/15 05:52 This 87 yrs old Female presents to ER via EMS with unknown complaint. pkl 05:52 Preceding the arrest, the patient was found down by family. The arrest occurred at [facility] home. Pre-hospital course: The arrest was not witnessed by others. Bystanders at the scene did not perform CPR. EMS care prior to arrival: initiation of ACLS. Historical: - Allergies: 05:39 Morphine; bb 05:39 Phenobarbital; bb - Home Meds: 05:39 acetaminophen 500 mg Oral tab 1 tab [Active]; atorvastatin 10 mg Oral tab 1 tab once bb daily [Active]; carvedilol 3.125 mg Oral tab 1 tab 2 times per day [Active]; furosemide 40 mg Oral tab 1 tab once daily [Active]; gabapentin 300 mg Oral cap 1 cap 4 times per day [Active]; levothyroxine 75 mcg tab 1 tab once daily [Active]; omeprazole 40 mg Oral cpDR 1 cap once daily [Active]; potassium chloride 20 mEq Oral TbER 1 tab once daily [Active]; prednisone 20 mg Oral tab 2 times per day [Active]; warfarin 2 mg Oral tab 1 tab [Active]; - PMHx: 05:39 Atrial Fib; CVA; High Cholesterol; Hypertension; Hypothyroidism; Myocardial infarction; bb - PSHx: 05:39 CABG; bb - Immunization history:: Adult Immunizations unknown. - Social history:: Smoking status: unknown. - Ebola Screening: : No symptoms or risks identified at this time. ROS: 05:52 Unable to obtain ROS due to comatose state. pkl Exam: 05:52 Head/Face: Normocephalic, atraumatic. pkl 05:52 Eyes: Pupils: are fixed and dilated. 05:52 ENT: Exam is negative for acute changes. 05:52 Neck: Exam negative for acute changes. 05:52 Chest/axilla: Exam negative for acute changes. 05:52 Cardiovascular: Rhythm: asystole, Pulses: not palpable. 05:52 Respiratory: No spontaneous respiration. 05:52 Abdomen/GI: Exam negative for acute changes. 05:52 Back: Exam negative for acute changes. 05:52 Musculoskeletal/extremity: Exam is negative for acute changes. 05:52 Skin: Extensive ecchymosis upper and lower extremities. 05:52 Neuro: Mentation: unable to test, the patient is comatose, Cranial nerves: unable to test, the patient is comatose, Motor: unable to test, the patient is comatose. Vital Signs: 05:18 bb 05:18 no palpable BP, no respiratory effort bb MDM: 05:23 Patient medically screened. pkl 05:52 Data reviewed: vital signs, nurses notes. ED course: Patient is DNR. Family does not pkl want CPR. Patient pronounced at 0520. Administered Medications: No medications were administered Disposition: 05:52 . pkl Disposition: Patient pronounced on 09/15/17 05:20 by Vimal Palacios. Impression: CPR. on arrival. Addendum: 10/16/2017 06:31 Addendum: DX. Cardio-respiratory arrest. p kl Signatures: Stella Hernandez RN RN Vimal Guardado MD MD pkl Miranda Myles RN RN bb Corrections: (The following items were deleted from the chart) 09/15 06:36 06:35 pkl pkl 08:14 06:05 09/15/2017 06:05 Patient pronounced on 09/15/2017 at 05:20 by Vimal Palacios. rhoda Impression: CPR. on arrival. pkl
--- NOTE | 2017-09-15 06:05 | ER ---
Nurse's Notes [facility] Name: Anh Murray Age: 87 yrs Sex: Female : 1930 Arrival Date: 09/15/2017 Time: 05:21 Bed 2 Private MD: Diagnosis: CPR. on arrival Presentation: 09/15 05:18 Presenting complaint: EMS states: they were toned out for report of pt unresponsive on bb their arrival pt had a faint carotid pulse they initiated CPR. Transition of care: patient was not received from another setting of care. Onset of symptoms was September 15, 2017. Risk Assessment: Do you want to hurt yourself or someone else? Other: unresponsive. Initial Sepsis Screen: Does the patient meet any 2 criteria? No. Patient's initial sepsis screen is negative. Does the patient have a suspected source of infection? No. Patient's initial sepsis screen is negative. Care prior to arrival: CPR via thumper performed by EMS and is still in progress IV initiated. 22 GA, in the right wrist. 05:18 Method Of Arrival: EMS: [facility] bb 05:18 Acuity: BING 1 bb Triage Assessment: 05:18 General: Appears cachectic, thumper in place, pt is dusky with no respiratory effort, bb bagged by EMS, skin color is cyanotic, pupils fixed and dilated, cardiac rhythm is asystole. Behavior is unresponsive. Pain: Unable to use pain scale. Patient is unresponsive. Neuro: Level of Consciousness is unresponsive. Cardiovascular: Rhythm is asystole. Respiratory: Airway via oral airway bagged by EMS Respiratory effort is no respiratory effort. Derm: Skin is cyanotic Bruising that is dark purple. Historical: - Allergies: 05:39 Morphine; bb 05:39 Phenobarbital; bb - Home Meds: 05:39 acetaminophen 500 mg Oral tab 1 tab [Active]; atorvastatin 10 mg Oral tab 1 tab once bb daily [Active]; carvedilol 3.125 mg Oral tab 1 tab 2 times per day [Active]; furosemide 40 mg Oral tab 1 tab once daily [Active]; gabapentin 300 mg Oral cap 1 cap 4 times per day [Active]; levothyroxine 75 mcg tab 1 tab once daily [Active]; omeprazole 40 mg Oral cpDR 1 cap once daily [Active]; potassium chloride 20 mEq Oral TbER 1 tab once daily [Active]; prednisone 20 mg Oral tab 2 times per day [Active]; warfarin 2 mg Oral tab 1 tab [Active]; - PMHx: 05:39 Atrial Fib; CVA; High Cholesterol; Hypertension; Hypothyroidism; Myocardial infarction; bb - PSHx: 05:39 CABG; bb - Immunization history:: Adult Immunizations unknown. - Social history:: Smoking status: unknown. - Ebola Screening: : No symptoms or risks identified at this time. Screenin:07 Abuse screen: N/A. Nutritional screening: N/A. Tuberculosis screening: N/A. bs1 Assessment: 05:20 Reassessment: No changes from previously documented assessment. see triage assessment. bb Reassessment: Dr Palacios at bedside with this RN, Reba Bernard RN, Spike Lobo RN, Genaro RT, Brenda RT, [facility]. Pt's son at bedside requested no further interventions be done as pt was a DNR. Time of was called by Dr Palacios. 06:00 Reassessment: Grain Elevator Agent notified by Captain Room Service Rishabh Cui. Son and home health nurse bs1 at bedside. 06:35 Reassessment: Grain Elevator Agent at bedside. bs1 06:42 Reassessment: Grain Elevator Agent informed JOAN Britton after speaking with family that he will be bs1 calling [facility] home. 07:03 Reassessment: Report given to JOAN camargo. bs1 Vital Signs: 05:18 bb 05:18 no palpable BP, no respiratory effort bb ED Course: 05:18 Arm band placed on Patient placed in an exam room, on a stretcher, on oxygen, on bb panel monitor, on pulse oximetry. Family accompanied patient. 05:18 Patient has correct armband on for positive identification. Bed in low position. bs1 05:18 hospital monitor on. NIBP on. bs1 05:18 Maintain EMS IV. Dressing intact. Site clean \T\ dry. Gauge \T\ site: 22G right FA. bs 1 05:18 No provider procedures requiring assistance completed. bs1 05:21 Patient arrived in ED. ms 05:23 Vimal Palacios MD is Attending Physician. pkl 05:38 Triage completed. bb 05:56 Reba Bernard, JOAN is Primary Nurse. bs1 06:01 Vimal Palacios MD is Pronouncing Provider. pkl 08:11 intact, taken with the home. sv Administered Medications: No medications were administered Outcome: 05:20 Condition: bs1 08:12 Patient : Body to home. sv 08:14 Patient left the ED. sv Signatures: Stella Hernandez RN RN sv Lam, Pin, MD MD pkl Ballard, Brenda, RN RN bb Solis, Maria ms Salazar, Brittany, RN RN bs1 Corrections: (The following items were deleted from the chart) 05:58 05:18 Derm: Skin is cyanotic janet gonzales
== END 2017-09-15 08:14 ==
LOC: ER 05:17
DX: I46.9 Cardiac arrest, cause unspecified (principal); I10 Essential (primary) hypertension; I25.2 Old myocardial infarction; E03.9 Hypothyroidism, unspecified; I48.91 Unspecified atrial fibrillation; E78.00 Pure hypercholesterolemia, unspecified; Z95.1 Presence of aortocoronary bypass graft; Z79.01 Long term (current) use of anticoagulants; Z86.73 Personal history of transient ischemic attack (TIA), and cerebral infarction without residual deficits; Z88.5 Allergy status to narcotic agent
CPT/HCPCS: 92950; 99285